=== PATIENT | female | born 1985 | race Caucasian/White ===

== ENCOUNTER 2019-09-25 11:07 | Outpatient (CLI) | payer OTHER, SELFPAY ==
--- NOTE | ~2019-09-25 | CT_ITS ---
EXAMINATION: CT facial bones wo con DATE: 09/25/2019 12:03 INDICATION: Fall. Nasal injury. Sinus disease. TECHNIQUE: Computed tomography (CT) of the facial bones and maxillofacial region was performed withou t intravenous contrast. Automated exposure control and iterative reconstruction technique were employ ed. Exam dose: 282.77 mGy-cm total exam DLP. COMPARISON: None. FINDINGS: The nasal bones and anterior maxillary spine are intact. Normal alignment at the frontozygo matic sutures. The orbital rims, orbital duffy, zygomatic arches and the remainder of the facial bone s are intact, without evidence of fracture. There is minimal focal mucoperiosteal thickening of the left maxillary sinus inferiorly. The paranasa l sinuses and mastoid air cells otherwise are normally developed and aerated. The nasal septum is midline. The nasal turbinates are moderately prominent but symmetric in size. The ostiomeatal units are patent. IMPRESSION: No facial fracture Reviewed, dictated and finalized at [facility]. Reviewed, dictated and finalized at location [facility]. 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
== END 2019-09-25 11:08 | disposition home or self-care (01) ==
PROVIDERS: PCP Internal Medicine; Visit Provider Internal Medicine
DX: S09.92XA Unspecified injury of nose, initial encounter (principal)
CPT/HCPCS: 70486

== ENCOUNTER 2025-05-18 08:56 | Day surgery (SDC) | payer OTHER, SELFPAY ==
[2025-05-12 08:38] VITALS: BMI 19.8
--- NOTE | ~2025-05-18 | XR_ITS ---
EXAMINATION: XR fluoroscopy no charge DATE: 05/18/2025 09:51 INDICATION: Left sacroiliac joint steroid injection TECHNIQUE: 5 fluoroscopic images of the left sacroiliac joint were obtained during procedure performed by Dr. Worthington. Radiologist was not present for the imaging or procedure. The amount of fluoroscopy time used during this procedure was 0.3 minutes. COMPARISON: None. FINDINGS/IMPRESSION: Images demonstrate spinal needle advanced into the left sacroiliac joint for reported steroid injection. See procedure note for further detail. Reviewed, dictated and finalized at location A.
--- NOTE | 2025-05-18 09:29 | PM.HPGS ---
History of Present Illness History of Present Illness Consent: Risks, benefits, and alternatives have been discussed and questions answered. Patient agrees to proceed with procedure. Chief complaint: Sacroiliitis, chronic low back pain Narrative: Kari Song is a 39 year old female with chronic, recalcitrant and disabling left lumbosacral back pain secondary to SI joint arthropathy, sacroiliitis with failure to respond to aggressive conservative measures including PT, oral and topical analgesics, opioid and nonopioid analgesics, rest, time and activity/behavioral modification over the past 1-2 years who presents for therapeutic intra-articular sacroiliac joint steroid injection under fluoroscopic guidance and with contrast control. Review of Systems Review of Systems: Patient denies any new infectious, allergic, cardiopulmonary, neurologic or constitutional symptoms or changes in activity tolerance or exercise capacity including new or progressive SOB/STONE, peripheral edema, productive cough, dysuria, nausea/vomiting, diarrhea, weight change, fevers/chills/night sweats, new or progressive neurologic deficit, cognitive or mood changes since last seen, except as documented in the HPI. All systems reviewed & are unremarkable except as noted in HPI and below PMFSH Past Medical History Medical History (Updated 05/18/25 @ 09:32 by Keith Worthington MD) Lumbar spondylosis Sacroiliitis Arthritis Anxiety Social History Social History Years smoked: 6 Smoking status: Current every day smoker Tobacco type: e-cigarettes/vaping Second hand tobacco smoke exposure: Yes Alcohol intake: current Drinks per week: 5 Substance use: never Substance use type: does not use Living arrangements: with family Spiritual care concerns: No Meds Home Medications and Allergies Home Medications ?Medication ?Instructions ?Recorded ?Confirmed ?Type clonazepam 0.5 mg tablet (Klonopin) 0.5 mg PO DAILY 01/20/25 05/12/25 History gabapentin 300 mg capsule 300 mg PO TID PRN pain 01/20/25 05/12/25 History ibuprofen 800 mg tablet 800 mg PO TID PRN pain 05/12/25 05/12/25 History Allergies Allergy/AdvReac Type Severity Reaction Status Date / Time No Known Allergies Allergy Verified 05/12/25 08:35 Exam Narrative: The patient's physical exam is essentially unchanged from prior examination on 04/14/2025. Specifically, patient demonstrates normal lung capacity, tidal volume and respiratory rate without wheezes, crackles, rales or rubs. Heart rate and rhythm are regular without murmurs, gallops or rubs. No JVD. Pulses 2+ globally without increasing peripheral edema. AAOx3 with no evidence of confusion, intoxication or altered mental state, NC/AT without acute distress or altered consciousness. Speech, cognition, mood, insight and judgment at baseline and within normal limits. Assessment and Plan Assessment and plan (1) Sacroiliitis: Code(s): M46.1 - Sacroiliitis, not elsewhere classified Status: Acute Assessment and Plan: Proceed as planned with therapeutic intra-articular sacroiliac joint steroid injection under fluoroscopic guidance and with contrast control. (2) Arthropathy of sacroiliac joint: Code(s): M47.818 - Spondylosis without myelopathy or radiculopathy, sacral and sacrococcygeal region Status: Acute (3) Chronic low back pain: Code(s): M54.50 - Low back pain, unspecified; G89.29 - Other chronic pain Status: Acute
--- NOTE | 2025-05-18 09:32 | P.OP_ITS ---
Procedure Note - Detailed Date of Procedure 05/18/25 Pre-op Diagnosis Sacroiliitis, chronic low back pain Post-op Diagnosis Same Procedure Performed Left Sacroiliac Joint Steroid Injection under Fluoroscopic Guidance and with Contrast Control. Surgeon Keith Worthington MD Heavy Duty Press Operator None Anesthesia Local Description of Procedure INFORMED CONSENT: Risks, benefits and alternatives to the procedure were discussed in detail with the patient who expressed explicit understanding and consent to proceed. Patient was informed verbally and in written form regarding the risks associated with the procedure including the low risk of serious infection, bleeding/bruising, allergic reaction, nerve or organ injury, paralysis, procedural site pain or discomfort, worsening pain and/or mobility, failure to treat and/or disfigurement. The patient expressed explicit understanding and consent to proceed. All materials required for the procedure were available prior to procedure start. Site and side were marked prior to procedure and confirmed in the presence of the patient. PROCEDURE IN DETAIL: The patient was brought to the procedural suite and placed in the prone position. Patient was made comfortable with use of pillows under the head/chest, hips and ankles. Skin overlying the injection site on the affected side(s) was prepared broadly with ChloraPrep applicator and draped in a sterile manner. Aseptic technique was used throughout. The left SI joint was identified in the AP view and contralateral oblique angulation with caudal tilt was utilized to optimize visualization of the inferior and medial joint line representing the posterior portion of the joint. Local anesthesia was established by infiltration with approximately 5 mL of 2% lidocaine via a 1-1/2 inch 27-gauge needle. A 22-gauge 3.5 inch Quincke spinal needle was advanced until the needle entered the inferior third of the joint space approximately 1cm cephalad from its most inferior point. In the AP view, 0.5 mL of Omnipaque 300 contrast medium was injected after negative aspiration for CSF, blood or other bodily fluid, showing appropriate intra-articular spread of contrast without evidence of intravascular, perineural or intrathecal placement. A 1.5 mL solution containing 10 mg of dexamethasone in 0.5% PF bupivacaine was injected after repeat negative aspiration. Appropriate spread of the injectate was confirmed with washout of previous injected contrast. No parasthesias were elicited. Needle was removed completely intact without difficulty. Images were saved and documented in the patient chart. Patient's skin was cleansed and sterile bandage applied. The patient tolerated the procedure well. The patient was transported to the recovery area in stable condition where they were observed for an appropriate amount of time prior to discharge, without evidence of complication. The patient was instructed to avoid excessive activity for the next 48 hours, including climbing and frequent use of stairs. Showers only for 48 hours. They were instructed not to drive or operate heavy machinery for 24 hours. They are to monitor for severe headaches, fevers, chills, night sweats, erythema/swelling at the site or any other signs of infection, bleeding/bruising, bowel or bladder changes as well as new pain, weakness or numbness in the upper or lower extremity. Should they notice these changes, they are instructed to call our office immediately or report directly to the nearest Emergency Department if no answer or if after posted office hours. COMPLICATIONS: None COMMENTS: None CONTRAST WASTED: 29.5 mL Omnipaque 300. Complications No immediate complications Condition Stable Disposition Same day [facility] Billing Surgery - Charge Forward: Surgery Billing
--- NOTE | 2025-05-18 09:32 | WPDHPUPDATE1 ---
History and Physical Update Update Date/Time: 05/18/25 09:32 History and Physical has been reviewed, including an updated exam of the patient. There are NO changes in the patient's condition. Risks, benefits, and alternatives have been discussed and questions answered. Patient agrees to proceed with procedure.
[2025-05-18 09:35] VITALS: BP 102/75; PULSE 61; RESP 16; TEMP 36.7; O2SAT 100
[2025-05-18 09:46] VITALS: BP 108/69; PULSE 64; RESP 18; O2SAT 100
--- OUTSIDE RECORDS SUMMARY | 2025-05-18 09:47 | XMS_ITS | Clinical Summary ---
Author Organization [facility] Address [address] [place] [address] Care Team Providers Care Gate Guard Name Role Phone Kirit Hankins MD Primary Care Provider Allergies No known active allergies Medications buPROPion SR (WELLBUTRIN SR) 100 mg 12 hr tablet 06/21/2020 Active clonazePAM (KlonoPIN) 0.5 mg tablet TK 1 T PO D PRN 06/21/2020 Active albuterol HFA (PROVENTIL HFA,VENTOLIN HFA,PROAIR HFA) 90 mcg/actuation inhalerIndicati ons:Bronchospas m Prevention Inhale 2 puffs every 4 (four) hours as needed for wheezing 1 each 11/01/2021 Active Active Problems No known active problems Surgical History Surgery Date Site/Laterality Comments US ABDOMEN COMPLETE W LIVER DOPPLER (C) 08/18/2018 R ight US ABDOMEN COMPLETE W LIVER DOPPLER (C) 08/27/2018 R ight Family History Medical History Relation Name Comments Breast cancer Paternal Grandmother Relation Name Status Comments Paternal Grandmother Social History Tobacco Use Types Packs/Day Years Used Date Smoking Tobacco: Every Day Vaping Personal Safety Answer Date Recorded Have you ever been in or are you currently in a harmful physical or emotional relationship or is someone making you feel afraid or unsafe? Denies 11/29/2024 Comments No Sex and Gender Information Value Date Recorded Sex Assigned at Not on file Legal Sex Female 1:47 AM CDT Gender Identity Not on file Sexual Orientation Not on file Obstetrics History Para Term AB IAB SAB Ectopic Multiple Livin g Live Births 3 2 2 Date Outcome GA Total Labor Labor/2nd/3rd Weight Sex Type Anes PTL Nadia A1 A5 Name Clin Term Term Last Filed Vital Signs Vital Sign Reading Time Taken Comments Blood Pressure 115/81 11/29/2024 1:44 PM CDT Pulse 86 11/29/2024 1:44 PM CDT Temperature 36.5 C (97.7 F) 11/29/2024 11:43 AM CDT Respiratory Rate 16 11/29/2024 1:44 PM CDT Oxygen Saturation 100% 11/29/2024 1:44 PM CDT Inhaled Oxygen Concentration - - Weight 49.4 kg (108 lb 14.5 oz) 025 11:43 AM CDT Height 160 cm (5' 3) 11/29/2024 11:43 AM CDT Body Mass Index 19.29 11/29/2024 11:43 AM CDT Plan of Treatment Health Maintenance Due Date Last Done Comments Cervical Cancer Screening 1987 Depression Screening 1987 Hepatitis C Screening 1987 Varicella Vaccines (1 of 2 - 13+ 2-dose series) 2000 DTaP/Tdap/Td Vaccine (6 - Tdap) 11/25/2002 11/24/2002, 03/30/1993, 01/21/1990, Additional history exists Regular Well Visit/Exam 18-64 2005 Pneumococcal vaccine <65 (1 of 2 - PCV) 2006 HPV Vaccines (1 - 3-dose SCD M series) 2014 Influenza Vaccine (#1) 2025 Hepatitis B Screening Completed 11/01/1997 , 07/25/1997, 06/21/[address] [facility] Care Teams Gate Guard Relationship Specialty Start Date End Date Kirit Hankins MD [address] [facility] [address] [place], [place] [id number] PCP - General 11/29/20
[2025-05-18] MEDS: dexAMETHasone SOD PHOS INJ 10 MG/ML 1 ML VIAL IM (09:49)
[2025-05-18] MEDS: BUPivacaine HCL 0.5% 10 ML AMP INFILTRATE (09:49)
[2025-05-18 09:58] VITALS: BP 103/84; PULSE 64; RESP 16; O2SAT 100
== END 2025-05-18 10:03 | disposition home or self-care (01) ==
PROVIDERS: PCP Internal Medicine; Visit Provider Anesthesiology Pain Medicine
PROC: (CPT 27096; principal; 2025-05-18 10:00)
DX: M46.1 Sacroiliitis, not elsewhere classified (principal); M54.50 Low back pain, unspecified; G89.29 Other chronic pain
CPT/HCPCS: 27096; 99199; G0260

== ENCOUNTER 2025-07-06 09:52 | Day surgery (SDC) | payer OTHER, SELFPAY ==
[2025-07-01 12:04] VITALS: BMI 20.2
--- NOTE | ~2025-07-06 | XR_ITS ---
EXAM/PROCEDURE: XR fluoroscopy no charge HISTORY: DIAG/PROG LEFT L3,L4,L5 MEDIAL BRANCH/DORSAL RAMI NERVE BLK COMPARISON: None available. Fluoroscopy time: 29.6 seconds DAP: 1.61 mGy IMPRESSION: Fluoroscopic guidance for pain management. No radiologist present for this procedure. See procedure/operative notes for complete evaluation. Reviewed, dictated and finalized at location A. LE CHANNELER IMPRESSION: Fluoroscopic guidance for pain management. No radiologist present for this proc edure. See procedure/operative notes for complete evaluation.
[2025-07-06 10:16] VITALS: BP 103/85; PULSE 73; RESP 16; TEMP 37.4; O2SAT 100; BMI 19.5
--- NOTE | 2025-07-06 11:44 | WPDHPUPDATE1 ---
History and Physical Update Update Date/Time: 07/06/25 11:44 History and Physical has been reviewed, including an updated exam of the patient. There are NO changes in the patient's condition. Risks, benefits, and alternatives have been discussed and questions answered. Patient agrees to proceed with procedure.
--- NOTE | 2025-07-06 11:45 | P.OP_ITS ---
Procedure Note - Detailed Date of Procedure 07/06/25 Pre-op Diagnosis Lumbar Spondylosis w/o Myelopathy or Radiculopathy Post-op Diagnosis Same Procedure Performed Diagnostic left Lumbar Medial Branch/Dorsal Ramus Blocks at L3, L4, L5 Treating the left L4-5, L5-S1 Facet Joints Under Fluoroscopic Guidance and with Contrast Control. (2 levels blocked). Surgeon Keith Worthington MD Biomedical Electronics Technician None. Anesthesia Local Description of Procedure INFORMED CONSENT: Risks, benefits and alternatives to the procedure were discussed in detail with the patient who expressed explicit understanding and consent to proceed. Patient was informed verbally and in written form regarding the risks associated with the procedure including the low risk of serious infection, bleeding/bruising, allergic reaction, nerve or organ injury, paralysis, procedural site pain or discomfort, worsening pain and/or mobility, failure to treat and/or disfigurement. The patient expressed explicit understanding and consent to proceed. All materials required for the procedure were available prior to procedure start. Site and side were marked prior to procedure and confirmed in the presence of the patient. PROCEDURE IN DETAIL: The patient was brought to the procedural suite and placed in the prone position. Patient was made comfortable with use of pillows under the head/chest, hips and ankles. Skin overlying the injection site on the affected side(s) was prepared broadly with ChloraPrep applicator and draped in a sterile manner. Aseptic technique was used throughout. The endplates of the vertebral bodies at the site(s) of interest were aligned in the AP view. Ipsilateral oblique angulation was utilized to optimize visualization of the intersection between the superior articulating process and transverse process at each target site. Local anesthesia was established by infiltration with approximately 5 mL of 1% lidocaine via a 1-1/2 inch 27-gauge needle. A 25-gauge 3.5 inch Quincke spinal needle was advanced until the needle tip contacted periosteum at the target site, left L3. Lateral view was utilized to confirm the appropriate placement of the needle tip just anterior to the facet line and superior to the pedicle. In the Lateral view, 0.25 mL of Omnipaque 300 contrast medium was injected after negative aspiration for CSF, blood or other bodily fluid, showing appropriate extra-articular spread of contrast without evidence of intravascular, foraminal or intrathecal placement. A 0.5 mL solution of 0.5% PF bupivacaine was injected after negative repeat aspiration. Appropriate spread of the injectate was confirmed with washout of previously injected contrast. No parasthesias were elicited. Needle was removed completely intact without difficulty. The same exact procedure was repeated for all remaining levels on the ipsilateral side, left L4, L5 medial branch/dorsal ramus, modified as necessary to accommodate for the new target location with identical findings and results and no evidence of complication. Images were saved and documented in the patient chart. Patient's skin was cleaned and sterile bandage applied. The patient tolerated the procedure well. The patient was transported to the recovery area in stable condition where they were observed for an appropriate amount of time prior to discharge, without evidence of complication. Patient was instructed on the appropriate completion of a pain diary over the next 12-24 hours. The patient was instructed to avoid excessive activity for the next 48 hours, including climbing and frequent use of stairs. Showers only for 48 hours. They were instructed not to drive or operate heavy machinery for 24 hours. They are to monitor for severe headaches, fevers, chills, night sweats, erythema/swelling at the site or any other signs of infection, bleeding/bruising, bowel or bladder changes as well as new pain, weakness or numbness in the upper or lower extremity. Should they notice these changes, they are instructed to call our office immediately or report directly to the nearest Emergency Department if no answer or if after posted office hours. COMPLICATIONS: None COMMENTS: None CONTRAST WASTED: 28.5mL Omnipaque 300. Complications No immediate complications Condition Stable Disposition Same day [facility] Billing Surgery - Charge Forward: Surgery Billing
[2025-07-06 12:17] VITALS: BP 136/77; PULSE 60; RESP 15; O2SAT 100
[2025-07-06 12:20] VITALS: BP 111/69; PULSE 60; RESP 15; O2SAT 100
[2025-07-06] MEDS: BUPivacaine HCL 0.5% 10 ML AMP INFILTRATE (12:20)
[2025-07-06 12:26] VITALS: BP 108/94; PULSE 64; RESP 16; O2SAT 100
--- OUTSIDE RECORDS SUMMARY | 2025-07-06 17:38 | XMS_ITS | Data Portability ---
Author Organization [place] [facility], [facility] Address [address] [facility] [address] [place] [address] Assessment No assessment recorded. Plan of Treatment Reminders Order Date Submit Date Provider Last Modified By Organization Details Last Modified Time Details Appointments Follow Up 15 2024 02:45P M Kirit Hankins MD Not available Not available Not available Lab gamma-glu tamyl transfera se (ggt), serum 2024 025 [facility], [address], [place], [address], 06/30/2025 04:05:06 CBC w/ auto diff 2024 025 [facility], [address], [address], [place], [address], 06/30/2025 04:05:05 vitamin D, 25-hydrox y, total, serum 2024 025 [facility], [address], [address], [place], [address], 06/30/2025 04:05:06 iron + TIBC + ferritin, serum 2024 025 [facility], [address], [address], [place], [address], 06/30/2025 04:05:06 vitamin B12 + folate, serum or blood 2024 025 [facility], [address], [address], [place], [address], 06/30/2025 04:05:06 CMP, serum or plasma 2024 025 [facility], [address], [address], [place], [address], 06/30/2025 04:05:06 TSH, serum or plasma 2024 025 [facility], [address], [address], [place], [address], 06/30/2025 04:05:06 urinalysi s complete, reflex culture 2024 025 [facility], [address], [address], [place], [address], 06/30/2025 04:05:07 erythrocy te sedimenta tion rate by westergre n method 2024 [facility], [address], [address], [place], [address], 06/30/2025 04:05:06 C-reactiv e protein, quantitat luisa, serum or plasma 2024 025 [facility], [address], [address], [place], [address], 06/30/2025 04:05:07 Referral None recorded. Procedures None recorded. Surgeries None recorded. Imaging None recorded. Medication Orders naltrexon e 50 mg tablet 2024 [facility] #61034, [address], [place], [place], [id number], 06/23/2025 11:35:55 trazodone 50 mg tablet 2024 [facility] #51352, [address], [place], [place], [id number], 06/23/2025 11:35:54 cyclobenz aprine 10 mg tablet 2024 [facility] #42111, [address], [place], [place], [id number], 06/23/2025 11:35:54 diclofena c sodium 75 mg tablet,de layed release 2024 On license of [facility] #44716, [address], [place], [place], [id number], 06/23/2025 11:35:53 Adderall XR 30 mg capsule,e xtended release 2024 [facility] #98585, [address], [place], [place], [id number], 06/23/2025 11:35:51 clonazepa m 0.5 mg tablet 2024 [facility] #84414, [address], [place], [place], [id number], 06/23/2025 11:35:52 naltrexon e 50 mg tablet 2024 [facility] #56226, [address], [place], [place], [id number], 05/20/2025 16:54:52 trazodone 50 mg tablet 2024 [facility] #50911, [address], [place], [place], [id number], 05/20/2025 16:52:28 Adderall XR 30 mg capsule,e xtended release 2024 [facility] #06269, [address], [place], [place], [id number], 05/20/2025 16:52:23 clonazepa m 0.5 mg tablet 2024 On license of [facility] #52109, [address], [place], [place], [id number], 05/20/2025 16:52:21 Refresh Tears 0.5 % eye drops 2024 [facility] #53253, [address], [place], [place], [id number], 04/22/2025 15:05:42 ondansetr on 4 mg disintegr ating tablet 2024 On license of [facility] #50205, [address], [place], [place], [id number], 04/22/2025 15:05:43 Adderall XR 30 mg capsule,e xtended release 2024 [facility] #88347, [address], [place], [place], [id number], 04/22/2025 15:05:37 clonazepa m 0.5 mg tablet 2024 [facility] #66163, [address], [place], [place], [id number], 04/22/2025 15:05:37 diclofena c sodium 75 mg tablet,de layed release 2024 On license of [facility] #18458, [address], [place], [place], [id number], 03/24/2025 16:43:08 Adderall XR 30 mg capsule,e xtended release 2024 025 [facility] #89286, [address], [place], [place], [id number], 03/24/2025 16:43:10 clonazepa m 0.5 mg tablet 2024 025 [facility] #28127, [address], [id number], 03/24/2025 16:43:10 gabapenti n 300 mg capsule 2024 025 [facility] #28036, [address], [place], [id number], 06/23/2025 11:29:42 Adderall XR 20 mg capsule,e xtended release 2024 025 [place] [address] [facility] #39151, [address], [place], [id number], 06/23/2025 11:28:36 Patient TargetsNo targets recorded. Patient Instructions Encounter Date Encounter Id Patient Instructions Last Modified By Organization Details Last Modified Time 02/03/2025 [id number] Quitting Tobacco : Care Instructions Not available 02/03/2025 16:07:58 chronic pelvic pain: care instructions [email or web address] Not available 02/03/2025 16:07:58 attention defici t hyperactivity disorder (ADHD) in adults: care instructions [email or web address] Not available 02/03/2025 16:07:58 learning about mood disorders [email or web address] Not available 02/03/2025 16:07:58 learning about mood disorders [email or web address] Not available 02/03/2025 16:07:58 I spent a total of _33 minutes (excluding separately reportable procedure time ) in care of this patient. [email or web address] Not available 02/03/2025 18:21:45 03/24/2025 [id number] Quitting Tobacco : Care Instructions [email or web address] Not available 03/24/2025 16:43:02 chronic pelvic pain: care instructions [email or web address] Not available 03/24/2025 16:43:02 attention defici t hyperactivity disorder (ADHD) in adults: care instructions [email or web address] Not available 03/24/2025 16:43:02 learning about mood disorders [email or web address] Not available 03/24/2025 16:43:02 learning about mood disorders [email or web address] Not available 03/24/2025 16:43:02 I spent a total of __31____ minutes (excluding separately reportable procedure time ) in care of this patient. [email or web address] Not available 03/24/2025 18:45:01 04/22/2025 [id number] Quitting Tobacco : Care Instructions [email or web address] Not available 04/22/2025 15:05:29 dry eyes: care instructions [email or web address] Not available 04/22/2025 15:05:29 chronic pelvic pain: care instructions Not available 04/22/2025 15:05:29 attention defici t hyperactivity disorder (ADHD) in adults: care instructions [email or web address] Not available 04/22/2025 15:05:29 learning about mood disorders [email or web address] Not available 04/22/2025 15:05:29 learning about mood disorders [id number] Not available 04/22/2025 15:05:29 I spent a total of __31____ minutes (excluding separately reportable procedure time ) in care of this patient. [email or web address] Not available 04/22/2025 15:03:05 05/20/2025 [id number] Quitting Tobacco : Care Instructions [email or web address] Not available 05/20/2025 16:52:14 dry eyes: care instructions [email or web address] Not available 05/20/2025 16:52:14 chronic pelvic pain: care instructions [email or web address] Not available 05/20/2025 16:52:14 attention defici t hyperactivity disorder (ADHD) in adults: care instructions [email or web address] Not available 05/20/2025 16:52:14 learning about mood disorders [email or web address] Not available 05/20/2025 16:52:14 learning about mood disorders [email or web address] Not available 05/20/2025 16:52:14 I spent a total of __32____ minutes (excluding separately reportable procedure time ) in care of this patient. [email or web address] Not available 05/20/2025 16:55:37 06/23/2025 [id number] Quitting Tobacco : Care Instructions [email or web address] Not available 06/23/2025 11:35:37 dry eyes: care instructions [email or web address] Not available 06/23/2025 11:35:36 chronic pelvic pain: care instructions [email or web address] Not available 06/23/2025 11:35:37 attention defici t hyperactivity disorder (ADHD) in adults: care instructions Not available 06/23/2025 11:35:37 learning about mood disorders [email or web address] Not available 06/23/2025 11:35:37 learning about mood disorders [email or web address] Not available 06/23/2025 11:35:36 I spent a total of __31____ minutes (excluding separately reportable procedure time ) in care of this patient. [email or web address] Not available 06/23/2025 11:35:47 Reason for Referral None Reported. Results Created Date Observation Date Name Description Value Unit Range Abnormal Flag Note LastModifiedBy Organization Detail LastModifiedTime 01/13/2001/08/2025 MRI, lumba r spine , w/o contr ast No observ ation record ed. [address] [place], [address], 01/14/2025 14:59:59 Result Notes None recorded. Problems Name Problem SNOMED Code Status Onset Date Resolution Date Notes Provider Name and Address Organization Details Recorded Time Altered bowel function 84315313 Completed 06/12/2023 Altered bowel habits Kirit Hankins MD [address] [facility] [address], [place], [address], [facility] 3 12:35:47 Acute bronchit is 50696990 Completed 06/12/2023 Acute bronchit is Kirit Hankins MD [address] [facility] [address], [place], [address], [facility] 10/25/202 3 12:32:32 Late effect of fracture of skull AND/OR face bones 44202928 Completed 06/12/2023 Late effect of fracture of skull AND/OR face bones Kirit Hankins MD [address] [facility] [address], [place], [address], [facility] 3 12:35:09 Depressi ve disorder 13376351 Completed 06/12/2023 Depresse d Depres sive disorder Davidamichael Montillakwadwo [facility] 4 10:32:00 Toxicode ndron radicans poisonin g 05537199 Completed 06/12/2023 Poison emily poisonin g Kirit Hankins MD [address] [facility] [address], [place], [address], [facility] 3 12:35:26 Acute mastitis 07711693 Completed 06/12/2023 Acute mastitis Kirit Hankins MD [address] [facility] [address], [place], [address], [facility] 3 12:32:34 Fatigue 36481342 Active Fatigue Kirit Hankins MD [address] [facility] [address], [place], [address], [facility] 5 16:51:45 Acute rhinosin usitis 591356810 Completed 06/12/2023 Acute rhinosin usitis Kirit Hankins MD [address] [facility] [address], [place], [address], [facility] 3 12:32:36 Pleuriti c pain 3846991 Completed 06/12/2023 Pleuriti c pain Kirit Hankins MD [address] [facility] [address], [place], [address], [facility] 3 12:35:32 Anxiety 90203080 Active 2014 Anxiety Kirit Hankins MD [address] [facility] [address], [place], [address], [facility] 5 16:50:20 Urinary tract infectio us disease 51200729 Completed 201406/12/2023 Urinary tract infectio us disease Kirit Hankins MD [address] [facility] [address], [place], [address], [facility] 4 12:56:26 Tobacco user 779966635 Active 2014 Tobacco use Kirit Hankins MD [address] [facility] [address], [place], [address], [facility] 5 16:50:20 Alcoholi sm 8894760 Active 2014 Alcoholi sm Kirit Hankins MD [address] [facility] [address], [place], [address], [facility] 5 16:55:01 Panic attack 104844771 Completed 201506/12/2023 Panic attack Kirit Hankins MD [address] [facility] [address], [place], [address], [facility] 3 12:35:39 Gastriti s 7032912 Completed 201706/12/2023 Gastriti s Kirit Hankins MD [address] [facility] [address], [place], [address], [facility] 3 12:35:41 Fibromyo sitis 51281401 Active 2022 Kirit Hankins MD [address] [facility] [address], [place], [address], [facility] 5 16:50:20 Osteoart hritis of right hip joint 57814702920 9107 Active 2022 Kirit Hankins MD [address] [facility] [address], [place], [address], [facility] 5 16:50:20 Arthriti s of right sacroili ac joint 58523036523 50539 Active 2022 Kirit Hankins MD [address] [facility] [address], [place], [address], [facility] 5 16:50:20 Disorder of iron metaboli 54409704 Active 2022 Kirit Hankins MD [address] [facility] [address], [place], [address], [facility] 5 16:50:20 Chronic pelvic pain of female 552759285 Active 2023 Kirit Hankins MD [address] [facility] [address], [place], [address], [facility] 5 16:50:21 Acute upper respirat ory infectio n 57751228 Completed 202306/16/2024 Kirit Hankins MD [address] [facility] [address], [place], [address], [facility] 4 12:56:13 Recurren t urinary tract infectio n 232325879 Completed 202306/16/2024 Kirit Hankins MD [address] [facility] [address], [place], [address], [facility] 4 12:56:20 Urinary tract infectio us disease 97392083 Completed 202306/16/2024 Urinary tract infectio us disease Kirit Hankins MD [address] [facility] [address], [place], [address], [facility] 4 12:56:25 Depressi ve disorder 63954619 Active 2023 Depresse d Depres sive disorder Davida Reyes [facility] 4 10:32:00 Mood disorder 80353591 Active 2023 Kirit Hankins MD [address] [facility] [facility] [address], [place], [address], [facility] 5 16:50:20 Chronic low back pain 180022835 Active 2023 Kirit Hankins MD [address] [facility] [address], [place], [address], [facility] 5 16:50:20 Secondar y amenorrh ea 520543516 Active 2023 Kirit Hankins MD [address] [facility] [address], [place], [address], [facility] 5 16:50:21 Degenera tion of lumbar interver tebral disc 45216700 Active 2023 Kirit Hankins MD [address] [facility] [address], [place], [address], [facility] 5 16:50:20 Attentio n deficit hyperact ivity disorder 385025189 Active 2024 Kirit Hankins MD [address] [facility] [address], [place], [address], [facility] 5 16:50:20 Projecti le vomiting 5247323 Active 2024 Kirit Hankins MD [address] [facility] [address], [place], [address], [facility] 5 14:54:59 Dry eyes 484301263 Active 2024 MD Sophie [address] [facility] [address], [place], [address], [facility] 5 15:03:44 Chronic insomnia 702761716 Active 2024 Kirit Hankins MD [address] [facility] [address], [place], [address], [facility] 5 16:50:58 Problem Notes None recorded. Medical Equipment None Reported. Allergies No known drug allergies Medications Name Sig Start Date Stop Date Status Note LastModified by Organization Details LastModified Time Refresh Tears 0.5 % eye drops Apply 2 drops every day by ophthalmi c route as needed. 2024 active Not Available Not Available Not Avai lable cyclobenzap rine 10 mg tablet TAKE 1/2 TABLET BY MOUTH AT BEDTIME 2024 active Not Available Not Available Not Avai lable amoxicillin 500 mg capsule TAKE 1 CAPSULE BY MOUTH EVERY 8 HOURS active Not Available Not Available No t Available medroxyprog esterone 10 mg tablet active Not Available Not Available No t Available trazodone 50 mg tablet Take 1 tablet every day by oral route. 2024 active Not Available Not Available Not Avai lable naltrexone 50 mg tablet Take 1 tablet every day by oral route. 2024 active Not Available Not Available Not Avai lable clonazepam 0.5 mg tablet TAKE 1 TABLET BY MOUTH EVERY DAY NEEDED 2024 active Not Available Not Available Not Avai lable pimecrolimu s 1 % topical cream APPLY TO THE AFFECTED AREA ON THE FACE TWICE DAILY 03/24 completed Not Available Not Available Not Available hydroxyzine pamoate 50 mg capsule 03/24 completed Not Available Not Available Not Available prochlorper azine maleate 10 mg tablet take one tablet by mouth three times a day as needed for nausea 2024 active Not Available Not Available Not Avai lable sulfamethox azole 800 mg-trimetho prim 160 mg tablet TAKE 1 TABLET BY MOUTH EVERY 12 HOURS FOR 5 DAYS 06/16 completed Not Available Not Available Not Available omeprazole 40 mg capsule,del ayed release TAKE 1 CAPSULE BY MOUTH EVERY DAY 30 MINUTES BEFORE BREAKFAST 03/24 completed Not Available Not Available Not Available Adderall XR 30 mg capsule,ext ended release Take 1 capsule every day by oral route. 2024 active Not Available Not Available Not Avai lable modafinil 200 mg tablet 11/04 completed Not Available Not Available Not Available chlordiazep oxide 25 mg capsule 11/04 completed Not Available Not Available Not Available dextroamphe tamine-amph etamine ER 20 mg 24hr capsule,ext end release TAKE 1 CAPSULE BY MOUTH EVERY DAY 06/23 completed Not Available Not Available Not Available bisacodyl 10 mg rectal suppository active Not Available Not Available Not Available cephalexin 500 mg capsule 11/04 completed Not Available Not Available Not Available Concerta 36 mg tablet,exte nded release TAKE 1 TABLET BY MOUTH EVERY DAY 12/03 completed Not Available Not Available Not Available gabapentin 300 mg capsule TAKE 1 CAPSULE BY MOUTH THREE TIMES DAILY 06/23 completed Not Available Not Available Not Available omeprazole 20 mg capsule,del ayed release 03/24 completed Not Available Not Available Not Available diclofenac sodium 75 mg tablet,chacorta yed release Take 1 tablet twice a day by oral route with meal(s). 2024 active Not Available Not Available Not Avai lable folic acid 1 mg tablet 1 tablet Orally Once a day for 30 day(s) 06/12 completed Not Available Not Available Not Available methylpredn isolone 4 mg tablets in a dose pack FOLLOW PACKAGE DIRECTION S 06/12 completed Not Available Not Available Not Available albuterol sulfate HFA 90 mcg/actuati on aerosol inhaler INHALE 1 TO 2 PUFFS BY MOUTH EVERY 4 TO 6 HOURS NEEDED FOR WHEEZING 06/12 completed Not Available Not Available Not Available Prozac 10 mg capsule 1 capsule Orally Once a day for 30 day(s) active Not Available Not Available No t Available ketoconazol e 2 % topical cream active Not Available Not Available Not Available ondansetron 4 mg disintegrat ing tablet Place 1 tablet 3 times a day by transling ual route as needed. 2024 active Not Available Not Available Not Avai lable amoxicillin 875 mg-potassiu m clavulanate 125 mg tablet TAKE 1 TABLET BY MOUTH EVERY 12 HOURS FOR 7 DAYS 02/12 completed Not Available Not Available Not Available hydroxyzine pamoate 25 mg capsule 06/12 completed Not Available Not Available Not Available cyclobenzap rine 5 mg tablet TAKE 1 TABLET BY MOUTH THREE TIMES DAILY NEEDED 06/23 completed Not Available Not Available Not Available artificial tears(dextr an-hypromel -glycern) 0.1 %-0.3 %-0.2 % eye drops active Not Available Not Available Not Available bupropion HCl XL 150 mg 24 hr tablet, extended release TAKE 1 TABLET BY MOUTH EVERY DAY IN THE MORNING 04/22 completed Not Available Not Available Not Available acamprosate 333 mg tablet,chacorta yed release TAKE 2 TABLETS BY MOUTH THREE TIMES DAILY 04/22 completed Not Available Not Available Not Available duloxetine 20 mg capsule,del ayed release Take 1 capsule every day by oral route. 11/04 completed Not Available Not Available Not Available Vivitrol 380 mg intramuscul ar suspension, extended release 11/04 completed Not Available Not Available Not Available Linzess 290 mcg capsule TAKE 1 CAPSULE BY MOUTH DAILY active Not Available Not Available No t Available Vraylar 1.5 mg capsule active Not Available Not Available N ot Available Vitals Date Recorded Body height Body temperature Body mass index (BMI) Body weight Heart rate Respiratory rate Oxygen saturation Oxygen saturation in Arterial blood by Pulse oximetry Systolic And Diastolic Provider Name and Address Organization Details Last Updated DateTime 5 160.02 cm 98.2 [degF] 19.1 kg/m2 63075.9 8 g 94 /min 16 /min 100 % 100 % 116/70 mm[Hg] [facility] 5 15:31:13 Date Recorded Body height Body temperature Body mass index (BMI) Body weight Heart rate Respiratory rate Oxygen saturation Oxygen saturation in Arterial blood by Pulse oximetry Systolic And Diastolic Provider Name and Address Organization Details Last Updated DateTime 5 160.02 cm 97.4 [degF] 19.8 kg/m2 92852.3 5 g 94 /min 16 /min 96 % 96 % 104/60 mm[Hg] [facility] 5 16:03:41 Date Recorded Body height Body temperature Body mass index (BMI) Body weight Heart rate Respiratory rate Oxygen saturation Oxygen saturation in Arterial blood by Pulse oximetry Systolic And Diastolic Provider Name and Address Organization Details Last Updated DateTime 5 160.02 cm 97.3 [degF] 20.4 kg/m2 47849.1 2 g 68 /min 18 /min 99 % 99 % 104/60 mm[Hg] [facility] 5 14:43:29 Date Recorded Body height Body temperature Body mass index (BMI) Body weight Heart rate Respiratory rate Oxygen saturation Oxygen saturation in Arterial blood by Pulse oximetry Systolic And Diastolic Provider Name and Address Organization Details Last Updated DateTime 5 160.02 cm 98.2 [degF] 20 kg/m2 92245.9 4 g 67 /min 18 /min 97 % 97 % 104/70 mm[Hg] [facility] 5 16:38:15 Date Recorded Body height Body temperature Body mass index (BMI) Body weight Heart rate Respiratory rate Oxygen saturation Oxygen saturation in Arterial blood by Pulse oximetry Systolic And Diastolic Provider Name and Address Organization Details Last Updated DateTime 5 160.02 cm 96.8 [degF] 20 kg/m2 98418.9 4 g 74 /min 18 /min 99 % 99 % 104/60 mm[Hg] [facility] 5 11:08:25 Social History None recorded. Functional Status None recorded. Mental Status None recorded. Family History Nothing Reported Notes:Migrated Family Histor y: Notes: : CANCER NOTE: Notes: Cancer Medical History No medical history recorded. Gynecological HistoryNo gynecological history recorded. Obstetrics History GPAL:G 0 P 0 0 0 0 Immunizations Vaccine Type Date Status Note Provider Nam e and Address Organization Details Recorded Time [facility]57 MMR 3 [facility] 11:43:57 COVID-19, mRNA, LNP-S, PF, 30 mcg/0.3 mL dose, gali-sucrose 2 [facility] 11:43:57 DTP 0 completed [place] null, [facility] 06/12/2023 11:43:57 DTP 8 [facility] 11:43:57 DTP 8 [facility] 11:43:57 DTP 3 [facility] 11:43:57 DTP 8 [facility] 11:43:57 OPV, trivalent 0 completed Key Dall null, [facility] 06/12/2023 11:43:57 OPV, trivalent 8 completed Key Dall null, [facility] 06/12/2023 11:43:57 OPV, trivalent 8 completed Key D[place] null, [facility] 06/12/2023 11:43:57 OPV, trivalent 3 completed Key Dall null, [facility] 06/12/2023 11:43:57 Td (adult), 2 Lf tetanus toxoid, preservative free, adsorbed 3 completed Key Dall null, [facility] 06/12/2023 11:43:57 Hep B, adolescent or pediatric 8 completed Key Dall null, [facility] 06/12/2023 11:43:57 Hep B, adolescent or pediatric 7 completed Key [place] null, [facility] 06/12/2023 11:43:57 Hep B, adolescent or pediatric 7 completed Key Dall null, [facility] 06/12/2023 11:43:57 Past Encounters Encounter ID Performer Location Encounter Start Date Encounter Closed Date Diagnosis/Indication Diagnosis SNOMED-CT Code Diagnosis ICD10 Code Diagnosis IMO Codes Diagnosis Note [id number] Kirit Hankins MD [facility] [facility] [address] [facility] [address] [place] [address] 06/12/2023 11:23:29 06/12/2023 12:53:37 Anxiety 63390729 F41.9 on clonazepam for since 20started having panic attacks black outsschool ing: did wellboyfri end suddenly, lot of stress due to familial stresstrie d different antidepres sants, zoloft, bupropion, lamictal in the past which did not helpdec 2021 admitted to psych facility for alcohol intoxicati on and potential suicidal intentions bupropion: sexual side effects Fatigue 37602427 R53.83 ongoingana negative 02/2022; kylah and anticcp: negative Tobacco user 003946791 F 17.200 ongoing smoking Alcoholism 4986757 F10.2 0 drinks frequently ,mostly binge drinkingco unsled on drinkingdi scused different medciation s.start naltrexone 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 will recckdid not go to rheumatoil ogist Osteoarthr itis of right hip joint 0341158215 41746 M16.11 xr 03/10 will follow Arthritis of right sacroiliac joint 1869696429 057696 M13.88 cr 03/10 notedrheum atology referral [id number] Kirit Hankins MD [facility] [address] [place] [address] 06/19/2023 12:17:20 06/19/2023 12:45:37 Anxiety 81025570 F41.9 on clonazepam for since 20started having panic attacks black outsschool ing: did wellboyfri end suddenly, lot of stress due to familial stresstrie d different antidepres sants, zoloft, bupropion, lamictal in the past which did not helpdec 2021 admitted to psych facility for alcohol intoxicati on and potential suicidal intentions bupropion: sexual side effects Fatigue 38767272 R53.83 ongoingana negative 02/2022; kylah and anticcp: negativees r crp again normal Tobacco user 678501469 F 17.200 ongoing smoking Alcoholism 0132945 F10.2 0 drinks frequently ,mostly binge drinkingco unsled on drinkingdi scused different medciation s.start naltrexone Fibromyositis 05734946 M 79.7 ongoing muscle pain.eleva libertad aldolase in the past. 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 TIBC low, iron level and saturation is high.03/09: these levels were normal.eric ritin level is normalwill recheck in future.she does not use iron regularlyw ill check hepatitis panel recheck iron levels in future.low er alcohol intake [id number] Kirit Hankins MD [facility] [address] [place] [address] 11/15/2023 10:01:03 11/15/2023 10:41:48 Disorder of iron metabolism 65109824 E83.10 TIBC low, iron level and saturation is high.03/09: these levels were normal.eric ritin level is normalwill recheck in future.she does not use iron regularlyw ill check hepatitis panel recheck iron levels in future.low er alcohol intake Alcoholism 3098249 F10.2 0 drinks frequently , mostly binge drinkingco unseled on drinkingdi scussed different medication s.start naltrexone Anxiety 07262196 F41.9 on clonazepam for since 20started having panic attacks blackoutss chooling: did wellboyfri end suddenly, lot of stress due to familial stresstrie d different antidepres sants, zoloft, bupropion, lamictal in the past which did not helpdec 2021 admitted to psych facility for alcohol intoxicati on and potential suicidal intentions bupropion: sexual side effects Fatigue 16377915 R53.83 ongoingana negative 02/2022; kylah and anticcp: negativees r crp again normal Tobacco user 618993983 F 17.200 ongoing smoking Fibromyositis 41072510 M 79.7 ongoing muscle pain.eleva libertad aldolase in the past. recehck normal, ck normaldid not go to rheumatolo gist Osteoarthr itis of right hip joint 4393725215 89374 M16.11 xr 03/10 will follow Arthritis of right sacroiliac joint 7535530450 540083 M13.88 cr 03/10 notedrheum atology referral Chronic pe lvic pain of female 777094713 R10.2 ongoing mild for long time.fu with gynecology not until get pelvic us.check ua as wellaugmen tin for uti as well Acute uppe r respiratory infection 39944211 J06.9 will give augmentin [id number] Kirit Hankins MD [facility] [address] [facility] [address] [place] [address] 02/13/2024 10:19:11 02/13/2024 11:00:10 Disorder of iron metabolism 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.10 TIBC low, iron level and saturation is high.03/09: these levels were normal.eric ritin level is normalwill recheck in future.she does not use iron regularlyh epatitis panel negative.l ower alcohol intake which she is having difficulty withwill check for hfe mutationre check labs Alcoholism 1512285 F10.2 0 drinks frequently mostly binge drinkingco unseled on drinkingdi scussed different medication s.start naltrexone which she does not takeadvise dto contact alcohol rehb center for vivitrol Anxiety 31138324 F41.9 on clonazepam for since 20started having panic attacks blackoutss chooling: did wellboyfri end suddenly, lot of stress due to familial stresstrie d different antidepres sants, zoloft, bupropion, lamictal in the past which did not helpdec 2021 admitted to psych facility for alcohol intoxicati on and potential suicidal intentions bupropion: sexual side effects Fatigue 53035730 R53.83 ongoingana negative 02/2022; kylah and anticcp: negativees r crp again normal Tobacco user 646506508 F 17.200 ongoing smoking Fibromyositis 36245969 M 79.7 ongoing muscle pain.eleva libertad aldolase in the past. recehck normal, ck normaldid not go to rheumatolo gist Osteoarthr itis of right hip joint 8719401350 28674 M16.11 xr 03/10 will follow Arthritis of right sacroiliac joint 3952117299 001734 M13.88 cr 03/10 notedrheum atology referral Chronic pe lvic pain of female 848015599 R10.2 D25.1 ongoing mild for long time.fu with gynecology not until lv c ultrasound with fibroid uterus Followed up with gynecologi st Mood disorder 07144822 F 39 mood up and down. will refer to psychaitri michelle add vraylar for depression [id number] Kirit Hankins MD [facility] [address] [facility] [address] [place] [address] 06/16/2024 11:52:03 06/16/2024 13:09:59 Renewal of prescription 338073244 Z76.0 Patient presented for medication refill. Patient tolerating medication well at current dose without adverse effects. Refilled as below. Discussed plan with patient, who expressed understand ing. Follow up as noted below. Mood disorder 87914346 F 39 mood up and down. will refer to psychaitri michelle add vraylar for depression which had some side effects and she stopped. Disorder o f iron metabolism 18717931 E83.10 TIBC low, iron level and saturation is high.03/09: these levels were normal.eric ritin level is normalwill recheck in future.she does not use iron regularlyh epatitis panel negative.l ower alcohol intake which she is having difficulty withwill check for hfe mutationre check labs which is pending Alcoholism 4179281 F10.2 0 drinks frequently mostly binge drinkingco unseled on drinkingdi scussed different medication s.start naltrexone which she does not takeadvise dto contact alcohol rehb center for vivitrols e states she has slowed down Anxiety 65982299 F41.9 on clonazepam for since 20started having panic attacks blackoutss chooling: did wellboyfri end suddenly, lot of stress due to familial stresstrie d different antidepres sants, zoloft, bupropion, lamictal in the past which did not helpdec 2021 admitted to psych facility for alcohol intoxicati on and potential suicidal intentions bupropion: sexual side effects and stopedvray lar: side effects Fatigue 76314971 R53.83 ongoingana negative 02/2022; kylah and anticcp: negativees r crp again normal Tobacco user 314289866 F 17.200 ongoing smoking Fibromyositis 66234530 M 79.7 ongoing muscle pain.eleva libertad aldolase in the past. recheck normal, ck normaldid not go to rheumatolo gistwill add flexeril prn Osteoarthr itis of right hip joint 6527171543 22348 M16.11 xr 03/10 will follow Arthritis of right sacroiliac joint 1073836434 134132 M13.88 cr 03/10 notedrheum atology referralha d elevated aldolase level.ongo ing fatigueCK level normal Chronic pe lvic pain of female 950264548 R10.2 D25.1 ongoing mild for long time.fu with gynecology not until lvi c ultrasound with fibroid uterus Followed up with gynecologi Chronic low back pain 27 1430665 M54.50 xray done at chiropract orreceived the injection at the chiropract oron ibuprofen prn Secondary amenorrhea 156 560592 N91.1 urine pocfollow up with female doctcheck hormone levels [id number] Kirit Hankins MD [facility] [address] [address] [place] [address] 07/09/2024 10:22:57 07/09/2024 11:23:19 Chronic low back pain 240781620 M54.50 xray done at chiropract orreceived the injection at the chiropract oron ibuprofen prnxr lumbar ddd and facet arthritisr efer to pain management Fibromyositis 99188255 M 79.7 ongoing muscle pain.eleva libertad aldolase in the past. recheck normal, ck normaldid not go to rheumatolo gistwialivia add flexeril prndiscuss ed cymbalta with the patient, agreeable. Mood disorder 84920403 F 39 mood up and down. will refer to psychiatri michelle jc vraylar for depression which had some side effects and she stoppedwil l add cymbalta for this.possi ble focus problem and will refer to behavioral health.salome holder refer to behavioral health Disorder o f iron metabolism 93430832 E83.10 TIBC low, iron level and saturation is high03/09: these levels were normal.eric ritin level is normalwill recheck in future.she does not use iron regularlyh epatitis panel negative.l ower alcohol intake which she is having difficulty withwill check for hfe mutation which is pendingiro n saturation 53% improved down from 69%she has cut down on her drinking. with noted improvemen t.HFE mutation pending. Alcoholism 8575715 F10.2 0 drinks frequently mostly binge drinkingco unseled on drinkingdi scussed different medication s.start naltrexone which she does not takeadvise d to contact alcohol rehab center for vivitrolsh e states she has slowed down Anxiety 30601020 F41.9 on clonazepam for since 20started having panic attacks blackoutss chooling: did wellboyfri end suddenly, lot of stress due to familial stresstrie d different antidepres sants, zoloft, bupropion, lamictal in the past which did not helpdec 2021 admitted to psych facility for alcohol intoxicati on and potential suicidal intentions bupropion: sexual side effects and stopedvray lar: side effects Fatigue 16749624 R53.83 ongoingana negative 02/2022; kylah and anticcp: negativees r crp again normal Tobacco user 021916362 F 17.200 ongoing smoking Osteoarthr itis of right hip joint 7790686333 44461 M16.11 xr 03/10 will follow Arthritis of right sacroiliac joint 6615614844 764704 M13.88 cr 03/10 notedrheum atology referralha d elevated aldolase level.ongo ing fatigueCK level normalsche duled not until january 2025 Chronic pe lvic pain of female 722540326 R10.2 D25.1 ongoing mild for long time.fu with gynecology Pelvic ultrasound with fibroid uterusFoll owed up with gynecologi st Secondary amenorrhea 156 541336 N91.1 urine pocfollow up with female doctnow having menstruato in. 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 [address] [place] [address] 11/04/2024 10:44:23 11/04/2024 11:22:34 Chronic low back pain 118792461 M54.50 xray done at chiropract orreceived the injection at the chiropract oron ibuprofen prnxr lumbar ddd and facet arthritisr efer to pain management but missed the appointmen t, will rerefer them again Fibromyositis 22724237 M 79.7 ongoing muscle pain.eleva libertad aldolase in the past. recheck normal, ck normaldid not go to rheumatolo bety add flexeril prndiscuss ed cymbalta with the patient but she did not tryfu with pain management Mood disorder 54746163 F 39 mood up and down. will refer to psychiatri stwill add vraylar for depression which had some side effects and she stoppedwil l add cymbalta for this.possi ble focus problem and will refer to behavioral health.bambi gnosed with ADHD and was started on concerta Disorder o f iron metabolism 34519125 E83.10 TIBC low, iron level and saturation is high03/09: these levels were normal.eirc ritin level is normalwill recheck in future.she does not use iron regularlyh epatitis panel negative.l ower alcohol intake which she is having difficulty withwill check for hfe mutation which is pendingiro n saturation 53% improved down from 69%she has cut down on her drinking. with noted improvemen t.HFE mutation H63D heterozygo uswill rehceck levels since off alcohol now Alcoholism 9480237 F10.2 0 drinks frequently mostly binge drinkingco unseled on drinkingdi scussed different medication s.start naltrexone which she does not takeadvise d to contact alcohol rehab center for vivitrolsh e states she has slowed downwent to rehab 08/2024 to 09/2024 in [facility], [place] Anxiety 60457600 F41.9 on clonazepam for since 20started having panic attacks blackoutss chooling: did wellboyfri end suddenly, lot of stress due to familial stresstrie d different antidepres sants, zoloft, bupropion, lamictal in the past which did not helpdec 2021 admitted to psych facility for alcohol intoxicati on and potential suicidal intentions bupropion: sexual side effects and stopedvray lar: side effectswas diagnosed with ADHD Fatigue 52692132 R53.83 ongoingana negative 02/2022; kylah and anticcp: negativees r crp again normal Tobacco user 700975733 F 17.200 ongoing smoking Osteoarthr itis of right hip joint 4494529571 08484 M16.11 xr 03/10 will follow Arthritis of right sacroiliac joint 0787264789 540118 M13.88 cr 03/10 notedrheum atology referralha d elevated aldolase level.ongo ing fatigueCK level normalsche duled not until january 2025 Chronic pe lvic pain of female 769146861 R10.2 D25.1 ongoing mild for long time.fu with gynecology Pelvic ultrasound with fibroid uterusFoll owed up with gynecologewelina galvez Secondary amenorrhea 156 766506 N91.1 urine pocfollow up with female doctnow having menstruato in. 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 Degenerati on of lumbar intervertebral disc 00919013 M51.369 mild ddd on lumbar areapain mgmt referral done but she missed the dose Attention deficit hyperactivity disorder 956379397 F90.9 started on concerta by psychiatrewelina galvez 09/2024didorothy bledsoe with adhd.she needs to see psychiatri [facility] to make an appointmen t with them.will continue concertra in the interim.logan thomson referral [id number] Kirit Hankins MD [facility] [address] [place] [address] 12/03/2024 16:37:45 12/03/2024 17:30:00 Attention deficit hyperactivity disorder 190343002 F90.9 started on concerta by psychiatrewelina galvez 09/2024didorothy bledsoe with adhd.she needs to see psychiatri [facility] to make an appointmen t with them.will continue concertra in the interim.logan thomson referralco ncerta causing side effects.wi ll switch to adderall. she has tried this before Chronic low back pain 27 9363798 M54.50 xray done at chiropract orreceived the injection at the chiropract oron ibuprofen prnxr lumbar ddd and facet arthritisr efer to pain management but missed the appointmen t, will rerefer them againand scheduledw ill order MRI lumbar spine Fibromyositis 88539576 M 79.7 ongoing muscle pain.eleva libertad aldolase in the past. recheck normal, ck normaldid not go to rheumatolo bety add flexeril prndiscuss ed cymbalta with the patient but she did not tryfu with pain management will add gabpentin scheduleds cheduled with pain mgmt in february Mood disorder 15489190 F 39 mood up and down. will refer to psychiatrewelina martinez add vraylar for depression which had some side effects and she stoppedwil l add cymbalta for this.possi ble focus problem and will refer to behavioral health.bambi gnosed with ADHD and was started on concertaad d clonazpem prn Disorder o f iron metabolism 84082125 E83.10 TIBC low, iron level and saturation is high03/09: these levels were normal.eric ritin level is normalwill recheck in future.she does not use iron regularlyh epatitis panel negative.l ower alcohol intake which she is having difficulty withwill check for hfe mutation which is pendingiro n saturation 53% improved down from 69%she has cut down on her drinking. with noted improvemen t.HFE mutation H63D heterozygo usrecheck level with improvemen t Alcoholism 3462918 F10.2 0 drinks frequently mostly binge drinkingco unseled on drinkingdi scussed different medication s.start naltrexone which she does not takeadvise d to contact alcohol rehab center for vivitrolsh e states she has slowed downwent to rehab 08/2024 to 09/2024 in [facility], [place] Anxiety 09826044 F41.9 on clonazepam for since 20started having panic attacks blackoutss chooling: did wellboyfri end suddenly, lot of stress due to familial stresstrie d different antidepres sants, zoloft, bupropion, lamictal in the past which did not helpdec 2021 admitted to psych facility for alcohol intoxicati on and potential suicidal intentions bupropion: sexual side effects and stopedvray lar: side effectswas diagnosed with ADHD Fatigue 13710277 R53.83 ongoingana negative 02/2022; kylah and anticcp: negativees r crp again normal Tobacco user 491474686 F 17.200 ongoing smoking Osteoarthr itis of right hip joint 1328457828 42868 M16.11 xr 03/10 will follow Arthritis of right sacroiliac joint 0489806967 662277 M13.88 cr 03/10 notedrheum atology referralha d elevated aldolase level.ongo ing fatigueCK level normalsche duled not until january 2025 Chronic pe lvic pain of female 811153909 R10.2 D25.1 ongoing mild for long time.fu with gynecology Pelvic ultrasound with fibroid uterusFoll owed up with gynecologi st Secondary amenorrhea 156 948514 N91.1 urine pocfollow up with female doctnow having menstruato in. 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 Degenerati on of lumbar intervertebral disc 54586229 M51.369 mild ddd on lumbar areapain mgmt referral done but she missed the dose [id number] Kirit Hankins MD [facility] [address] [place] [address] 12/31/2024 16:23:14 12/31/2024 17:08:59 Attention deficit hyperactivity disorder 180697879 F90.9 started on concerta by psychiatrewelina aglvez 09/2024diag nosed with adhd.she needs to see psychiatri [facility] to make an appointmen t with them.will continue concertra in the interim.ga nolbertoway referral and going to see a psych on cer ta causing side effects.wi ll switch to adderall. she has tried this before currently on adderall Chronic low back pain 27 8014998 M54.50 xray done at chiropract orreceived the injection at the chiropract oron ibuprofen prnxr lumbar ddd and facet arthritisr efer to pain management but missed the appointmen t, will reefer them againand scheduledw ill order MRI lumbar spine scheduled nowcurrent ly doing therapypai n management in february 2025 Fibromyositis 26959978 M 79.7 ongoing muscle pain.eleva libertad aldolase in the past. recheck normal, ck normaldid not go to rheumatolo bety add flexeril prndiscuss ed cymbalta with the patient but she did not tryfu with pain management added gabpentin scheduled but she takes it as neededsche duled with pain mgmt in february Mood disorder 15533191 F 39 mood up and down. will refer to psychiatrewelina jc vraylar for depression which had some side effects and she stoppedwil l add cymbalta for this.possi ble focus problem and will refer to behavioral health.bambi gnosed with ADHD and was started on concertaad d clonazpem prnadded bupropion: however caused crying episode Disorder o f iron metabolism 68492310 E83.10 TIBC low, iron level and saturation is high03/09: these levels were normal.eric ritin level is normalwill recheck in future.she does not use iron regularlyh epatitis panel negative.l ower alcohol intake which she is having difficulty withwill check for hfe mutation which is pendingiro n saturation 53% improved down from 69%she has cut down on her drinking. with noted improvemen t.HFE mutation H63D heterozygo usrecheck level with improvemen t Alcoholism 2065261 F10.2 0 drinks frequently mostly binge drinkingco unseled on drinkingdi scussed different medication s.start naltrexone which she does not takeadvise d to contact alcohol rehab center for vivitrolsh e states she has slowed downwent to rehab 08/2024 to 09[place] [facility], [place] sporadical ly.continu es on AAadd acamprosat e Anxiety 56216762 F41.9 on clonazepam for since 20started having panic attacks blackoutss chooling: did wellboyfri end suddenly, lot of stress due to familial stresstrie d different antidepres sants, zoloft, bupropion, lamictal in the past which did not helpdec 2021 admitted to psych facility for alcohol intoxicati on and potential suicidal intentions bupropion: sexual side effects and stoppedvra ylar: side effectswas diagnosed with ADHD Fatigue 67912321 R53.83 ongoingana negative 02/2022; kylah and anticcp: negativees r crp again normal Tobacco user 311365725 F 17.200 ongoing smoking Osteoarthr itis of right hip joint 9768212156 08534 M16.11 xr 03/10 will follow Arthritis of right sacroiliac joint 5299972235 550980 M13.88 cr 03/10 notedrheum atology referralha d elevated aldolase level.ongo ing fatigueCK level normalsche duled not until january 2025 Chronic pe lvic pain of female 912949038 R10.2 D25.1 ongoing mild for long time.fu with gynecology Pelvic ultrasound with fibroid uterusFoll owed up with gynecologi st Secondary amenorrhea 156 096705 N91.1 urine pocfollow up with female doctnow having menstruato in. 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 Degenerati on of lumbar intervertebral disc 59163405 M51.369 mild ddd on lumbar areapain mgmt referral done but she missed the dose [id number] Kirit Hankins MD [facility] [address] [place] [address] 02/03/2025 15:25:13 02/03/2025 16:10:11 Attention deficit hyperactivity disorder 944575517 F90.9 started on concerta by dion galvez 09/2024diag nosed with adhd.she needs to see psychiatrewelina littlejohn to make an appointmen t with them.will continue concertra in the interim.ga nolbertoway referral and going to see a psych on concer ta causing side effects.wi ll switch to adderall. she has tried this before currently on adderall Chronic low back pain 27 6478731 M54.50 xray done at chiropract orreceived the injection at the chiropract oron ibuprofen prnxr lumbar ddd and facet arthritisr efer to pain management but missed the appointmen t, will reefer them againand scheduledw ill order MRI lumbar spine scheduled nowcurrent ly doing therapypai n management note reviewed. planned left SI joint injection however was denied by insuranceX R SI joint unremarkab le.other xrays unremarakb le as well. Fibromyositis 89864652 M 79.7 ongoing muscle pain.eleva libertad aldolase in the past. recheck normal, ck normaldid not go to rheumatolo bety add flexeril prndiscuss ed cymbalta with the patient but she did not tryfu with pain management added gabpentin scheduled but she takes it as neededssee ing pain managmenet now Mood disorder 53975511 F 39 mood up and down. will refer to dion jc vraylar for depression which had some side effects and she stoppedwil l add cymbalta for this.possi ble focus problem and will refer to behavioral health.bambi gnosed with ADHD and was started on concertaad d clonazpem prnadded bupropion: however caused crying episode Disorder o f iron metabolism 71599658 E83.10 TIBC low, iron level and saturation is high03/09: these levels were normal.eric ritin level is normalwill recheck in future.she does not use iron regularlyh epatitis panel negative.l ower alcohol intake which she is having difficulty withwill check for hfe mutation which is pendingiro n saturation 53% improved down from 69%she has cut down on her drinking. with noted improvemen t.HFE mutation H63D heterozygo usrecheck level with improvemen t Alcoholism 2941918 F10.2 0 drinks frequently mostly binge drinkingco unseled on drinkingdi scussed different medication s.start naltrexone which she does not takeadvise d to contact alcohol rehab center for vivitrolsh e states she has slowed downwent to rehab 08/2024 [place], [place] sporadical [place].continu es on AAadd acamprosat e which she has not received yet Anxiety 01476425 F41.9 on clonazepam for since 20started having panic attacks blackoutss chooling: did wellboyfri end suddenly, lot of stress due to familial stresstrie d different antidepres sants, zoloft, bupropion, lamictal in the past which did not helpdec 2021 admitted to psych facility for alcohol intoxicati on and potential suicidal intentions bupropion: sexual side effects and stoppedvra ylar: side effectswas diagnosed with ADHD Fatigue 96167666 R53.83 ongoingana negative 02/2022; kylah and anticcp: negativees r crp again normal Tobacco user 174968263 F 17.200 ongoing smoking Osteoarthr itis of right hip joint 9193967217 71755 M16.11 xr 03/10 will follow Arthritis of right sacroiliac joint 6123086501 127175 M13.88 cr 03/10 notedrheum atology referralha d elevated aldolase level.ongo ing fatigueCK level normalsche duled not until january 2025 Chronic pe lvic pain of female 020611917 R10.2 D25.1 ongoing mild for long time.fu with gynecology Pelvic ultrasound with fibroid uterusFoll owed up with gynecologi st Secondary amenorrhea 156 556788 N91.1 urine pocfollow up with female doctnow having menstruato in. 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 Degenerati on of lumbar intervertebral disc 53396718 M51.369 mild ddd on lumbar areapain mgmt referral done but she missed the dose [id number] Kirit Hankins MD [facility] [address] [place] [address] 03/24/2025 15:36:11 03/24/2025 16:45:11 Attention deficit hyperactivity disorder 646195678 F90.9 started on concerta by psychiatrewelina galvez 09/2024diag nosed with adhd.she needs to see psychiatri st.encoura littlejohn to make an appointmen t with them.will continue concertra in the interim.ga teway referral and going to see a psych on concer ta causing side effects.wi ll switch to adderall. she has tried this before currently on adderallwi ll increase to 30 mg daily Chronic low back pain 27 5970469 M54.50 xray done at chiropract orreceived the injection at the chiropract oron ibuprofen prnxr lumbar ddd and facet arthritisr efer to pain management but missed the appointmen t, will reefer them againand scheduledw ill order MRI lumbar spine scheduled nowcurrent ly doing therapypai n management note reviewed. planned left SI joint injection however was denied by insuranceX R SI joint unremarkab le.other x-rays unremarkab le as well. Fibromyositis 22433149 M 79.7 ongoing muscle pain.eleva libertad aldolase in the past. recheck normal, ck normaldid not go to rheumatolo gistsera add flexeril prndiscuss ed cymbalta with the patient but she did not tryfu with pain management added gabpentin scheduled but she takes it as neededssee ing pain managmenet nowalso seen rheumatolo gist.added cyclobenza ivy and diclofenac she lost diclofenac . will send refill out Mood disorder 87207403 F 39 mood up and down. 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 with noted improvemen t.HFE mutation H63D heterozygo usrecheck level with improvemen t Alcoholism 2725642 F10.2 0 drinks frequently mostly binge drinkingco unseled on drinkingdi scussed different medication s.start naltrexone which she does not takeadvise d to contact alcohol rehab center for vivitrolsh e states she has slowed downwent to rehab 08/2024 to 09[place]2024 in [facility], [place] sporadical ly.continu es on AAadd acamprosat e which she has not received yet Anxiety 11133918 F41.9 on clonazepam for since 20started having panic attacks blackoutss chooling: did wellboyfri end suddenly, lot of stress due to familial stresstrie d different antidepres sants, zoloft, bupropion, lamictal in the past which did not helpdec 2021 admitted to psych facility for alcohol intoxicati on and potential suicidal intentions bupropion: sexual side effects and stoppedvra ylar: side effectswas diagnosed with ADHD Fatigue 25376780 R53.83 ongoingana negative 02/2022; kylah and anticcp: negativees r crp again normal Tobacco user 061016698 F 17.200 quit now Osteoarthr itis of right hip joint 4870169344 99706 M16.11 xr 03/10 will follow Arthritis of right sacroiliac joint 2033344312 522961 M13.88 cr 03/10 notedrheum atology referralha d elevated aldolase level.ongo ing fatigueCK level normalsche duled not until january 2025 Chronic pe lvic pain of female 479029840 R10.2 D25.1 ongoing mild for long time.fu with gynecology Pelvic ultrasound with fibroid uterusFoll owed up with gynecologi st Secondary amenorrhea 156 994450 N91.1 urine poc negativefo llow up with female doctnow having menstruato in. owner/operator give her some medsnow resolved Degenerati on of lumbar intervertebral disc 47303665 M51.369 mild ddd on lumbar areamRI 01/10: mild disc bulge wtih facet arthritis, mild neuro foraminal narrowing noted at one level in low backpain mgmt referral done and going to see 04/14/25see n pain management completed physical therapy with not much relief [id number] Kirit Hankins MD [facility] [address] [place] [address] 04/22/2025 14:31:34 04/22/2025 15:09:01 Projectile vomiting 5374801 R11.12 45677243 resolving now.she has started on drinking again.abd exam is benign.inga e nausea still present,wi ll give zofran odt Degenerati on of lumbar intervertebral disc 25996703 M51.369 mild ddd on lumbar areamRI 01/10: mild disc bulge wtih facet arthritis, mild neuro foraminal narrowing noted at one level in low backpain mgmt referral done and going to see 04/14/25see n pain management completed physical therapy with not much reliefplan nataly to get her to injection soon Attention deficit hyperactivity disorder 178313751 F90.9 started on concerta by dion galvez 09/2024diag nosed with adhd.she needs to see psychiatrewelina littlejohn to make an appointmen t with them.will continue concertra in the interim.logan thomson referral and going to see a psych on cer ta causing side effects.wi ll switch to adderall. she has tried this before currently on adderallin creased to 30 mg dailynow seeing dion galvez Chronic low back pain 27 1642410 M54.50 xray done at chiropract orreceived the injection at the chiropract oron ibuprofen prnxr lumbar ddd and facet arthritisr efer to pain management but missed the appointmen t, will reefer them againand scheduledw ill order MRI lumbar spine scheduled nowcurrent ly doing therapypai n management note reviewed. planned left SI joint injection however was denied by insuranceX R SI joint unremarkab le.other x-rays unremarkab le as well. Fibromyositis 60517349 M 79.7 ongoing muscle pain.eleva libertad aldolase in the past. recheck normal, ck normaldid not go to rheumatolo gistwialivia add flexeril prndiscuss ed cymbalta with the patient but she did not tryfu with pain management added gabpentin scheduled but she takes it as neededssee ing pain managmenet nowalso seen rheumatolo gist.added cyclobenza ivy and diclofenac she lost diclofenac . will send refill out Mood disorder 69792677 F 39 mood up and down. will refer to psychiatri michelle add vraylar for depression which had some side effects and she stoppedwil l add cymbalta for this.possi ble focus problem and will refer to behavioral health.bambi gnosed with ADHD and was started on concertaad d clonazpem prnadded bupropion: however caused crying episodeshe has now seeing psychiatri st Disorder o f iron metabolism 07571281 E83.10 TIBC low, iron level and saturation is high03/09: these levels were normal.eric ritin level is normalwill recheck in future.she does not use iron regularlyh epatitis panel negative.l ower alcohol intake which she is having difficulty withwill check for hfe mutation which is pendingiro n saturation 53% improved down from 69%she has cut down on her drinking. with noted improvemen t.HFE mutation H63D heterozygo usrecheck level with improvemen t Alcoholism 5544114 F10.2 0 drinks frequently mostly binge drinkingco unseled on drinkingdi scussed different medication s.start naltrexone which she does not takeadvise d to contact alcohol rehab center for vivitrolsh e states she has slowed downwent to rehab 08/2024 [place] 09[place]24 [place] [facility], [place] sporadical [place].continu es on AAadd acamprosat e which she has not received yetshe went to see psychiatir st and going to receive Anxiety 02309313 F41.9 on clonazepam for since 20started having panic attacks blackoutss chooling: did wellboyfri end suddenly, lot of stress due to familial stresstrie d different antidepres sants, zoloft, bupropion, lamictal in the past which did not helpdec 2021 admitted to psych facility for alcohol intoxicati on and potential suicidal intentions bupropion: sexual side effects and stoppedvra ylar: side effectswas diagnosed with ADHD Fatigue 62752394 R53.83 ongoingana negative 02/2022; kylah and anticcp: negativees r crp again normal Tobacco user 985790241 F 17.200 quit now Osteoarthr itis of right hip joint 0965676966 88378 M16.11 xr 03/10 will follow Arthritis of right sacroiliac joint 1293988887 157768 M13.88 cr 03/10 notedrheum atology referralha d elevated aldolase level.ongo ing fatigueCK level normalsche duled not until january 2025 Chronic pe lvic pain of female 735455658 R10.2 D25.1 ongoing mild for long time.fu with gynecology Pelvic ultrasound with fibroid uterusFoll owed up with gynecologi Secondary amenorrhea 156 156762 N91.1 urine poc negativefo llow up with female doctnow having menstruato in. owner/operator give her some medsnow resolved Dry eyes 587574911 H04.1 23 5442105 [id number] Kirit Hankins MD [facility] [address] [place] [address] 05/20/2025 16:32:49 05/20/2025 17:00:07 Degeneration of lumbar intervertebral disc 95489635 M51.369 mild ddd on lumbar areamRI 01/10: mild disc bulge wtih facet arthritis, mild neuro foraminal narrowing noted at one level in low backpain mgmt referral done and going to see 04/14/25see n pain management completed physical therapy with not much reliefs/p injection 05/18/2025: with improvemen t Attention deficit hyperactivity disorder 447318785 F90.9 started on concerta by dion galvez 09/2024diag nosed with adhd.she needs to see psychiatri st.encoura littlejohn to make an appointmen t with them.will continue concertra in the interim.logan thomson referral and going to see a psych on ta causing side effects.wi ll switch to adderall. she has tried this before currently on adderallin creased to 30 mg dailynow seeing dion galvez Chronic low back pain 27 3115267 M54.50 xray done at chiropract orreceived the injection at the chiropract oron ibuprofen prnxr lumbar ddd and facet arthritisr efer to pain management but missed the appointmen t, will reefer them againand scheduledw ill order MRI lumbar spine scheduled nowcurrent ly doing therapypai n management note reviewed. planned left SI joint injection however was denied by insuranceX R SI joint unremarkab le.other x-rays unremarkab le as well. Fibromyositis 56773569 M 79.7 ongoing muscle pain.eleva libertad aldolase in the past. recheck normal, ck normaldid not go to rheumatolo gistwill add flexeril prndiscuss ed cymbalta with the patient but she did not tryfu with pain management added gabpentin scheduled but she takes it as neededssee ing pain managmenet nowalso seen rheumatolo gist.added cyclobenza ivy and diclofenac she lost diclofenac .sent refill Mood disorder 20937604 F 39 mood up and down. will refer to psychiatri stsera add vraylar for depression which had some side effects and she stoppedwil l add cymbalta for this.possi ble focus problem and will refer to behavioral health.bambi gnosed with ADHD and was started on concertaad d clonazpem prnadded bupropion: however caused crying episodeshe has now seeing psychiatri st Disorder o f iron metabolism 45163987 E83.10 TIBC low, iron level and saturation is high03/09: these levels were normal.eric ritin level is normalwill recheck in future.she does not use iron regularlyh epatitis panel negative.l ower alcohol intake which she is having difficulty withwill check for hfe mutation which is pendingiro n saturation 53% improved down from 69%she has cut down on her drinking. with noted improvemen t.HFE mutation H63D heterozygo usrecheck level with improvemen t Alcoholism 1974865 F10.2 0 drinks frequently mostly binge drinkingco unseled on drinkingdi scussed different medication s.start naltrexone which she does not takeadvise d to contact alcohol rehab center for vivitrolsh e states she has slowed downwent to rehab 08/2024 [place] 09[place]2024 [place] [facility], [place] sporadical [place].continu es on AAadd acamprosat e which she has not received yetshe went to see psychiatir st and going to receivelas t drink: she does not knowshe is not able to go get vivitrolwi ll start on naltrexone Anxiety 26656027 F41.9 on clonazepam for since 20started having panic attacks blackoutss chooling: did wellboyfri end suddenly, lot of stress due to familial stresstrie d different antidepres sants, zoloft, bupropion, lamictal in the past which did not helpdec 2021 admitted to psych facility for alcohol intoxicati on and potential suicidal intentions bupropion: sexual side effects and stoppedvra ylar: side effectswas diagnosed with ADHD Fatigue 45024377 R53.83 ongoingana negative 02/2022; kylah and anti-ccp: negativees r crp again normal Tobacco user 697787313 F 17.200 quit now Osteoarthr itis of right hip joint 8421550716 86410 M16.11 xr 03/10 will follow Arthritis of right sacroiliac joint 6904306749 739093 M13.88 cr 03/10 notedrheum atology referralha d elevated aldolase level.ongo ing fatigueCK level normalsche duled not until january 2025 Chronic pe lvic pain of female 970450353 D25.1 ongoing mild for long time.fu with gynecology Pelvic ultrasound with fibroid uterusFoll owed up with gynecologi st Secondary amenorrhea 156 003843 N91.1 urine poc negativefo llow up with female doctnow having menstruato in. owner/operator give her some medsnow resolved Dry eyes 423811634 H04.1 23 6820661 refresh plus Chronic insomnia 7482677 04 F51.04 742887 on trazodone prntreid int eh past and worked well. [id number] Kirit Hankins MD [facility] [address] [place] [address] 06/23/2025 11:02:24 06/23/2025 11:40:48 Attention deficit hyperactivity disorder 372327340 F90.9 started on concerta by psychiatrewelina galvez 09/2024diag nosed with adhd.she needs to see psychiatri st.encoura littlejohn to make an appointmen t with them.will continue concertra in the interim.ga teway referral and going to see a psych on cer ta causing side effects.wi ll switch to adderall. she has tried this before currently on adderallin creased to 30 [address] dailynow seeing psychiatri [address] [place] on of lumbar intervertebral disc 41944660 M51.369 mild ddd on lumbar areamRI 01/10: mild disc bulge wtih facet arthritis, mild neuro foraminal narrowing noted at one level in low backpain mgmt referral done and going to see 04/14/25see n pain management completed physical therapy with not much reliefs/p injection 05/18/2025: with improvemen tpain back againshe is planned for left L3,L4, L5 RFA planned Chronic low back pain 27 2383508 M54.50 xray done at chiropract orreceived the injection at the chiropract oron ibuprofen prnxr lumbar ddd and facet arthritisr efer to pain management but missed the appointmen t, will reefer them againand scheduledm RI 01/10: mild disc bulge wtih facet arthritis, mild neuro foraminal narrowing noted at one level in low backcurren tly doing therapypai n management note reviewed. planned left SI joint injection however was denied by insuranceX R SI joint unremarkab le.other x-rays unremarkab le as well. Fibromyositis 53529453 M 79.7 ongoing muscle pain.eleva libertad aldolase in the past. recheck normal, ck normaldid not go to rheumatolo laurawialivia add flexeril prndiscuss ed cymbalta with the patient but she did not tryfu with pain management added gabpentin scheduled but she takes it as neededssee ing pain managmenet nowalso seen rheumatolo gist.added cyclobenza ivy and diclofenac she lost diclofenac .sent refill Mood disorder 71956659 F 39 mood up and down. will refer to psychiatri michelle add vraylar for depression which had some side effects and she stoppedwil l add cymbalta for this.possi ble focus problem and will refer to behavioral health.bambi gnosed with ADHD and was started on concertaad d clonazpem prnadded bupropion: however caused crying episodeshe has now seeing psychiatri Disorder o f iron metabolism 78926980 E83.10 TIBC low, iron level and saturation is high03/09: these levels were normal.eric ritin level is normalwill recheck in future.she does not use iron regularlyh epatitis panel negative.l ower alcohol intake which she is having difficulty withwill check for hfe mutation which is pendingiro n saturation 53% improved down from 69%she has cut down on her drinking. with noted improvemen t.HFE mutation H63D heterozygo usrecheck level with improvemen t Alcoholism 2917516 F10.2 0 drinks frequently mostly binge drinkingco unseled on drinkingdi scussed different medication s.start naltrexone which she does not takeadvise d to contact alcohol rehab center for vivitrolsh e states she has slowed downwent to rehab 08/2024 to 09[place]2024 [facility], [place] sporadical [place].continu es on AAadd acamprosat e which she has not received yetshe went to see psychiatir st and going to receivelas t drink: she does not knowshe is not able to go get vivitrolst arted on naltrexone Anxiety 45212176 F41.9 on clonazepam for since 20started having panic attacks blackoutss chooling: did wellboyfri end suddenly, lot of stress due to familial stresstrie d different antidepres sants, zoloft, bupropion, lamictal in the past which did not helpdec 2021 admitted to psych facility for alcohol intoxicati on and potential suicidal intentions bupropion: sexual side effects and stoppedvra ylar: side effectswas diagnosed with ADHD Fatigue 81481991 R53.83 ongoingana negative 02/2022; kylah and anti-ccp: negativees r crp again normal Tobacco user 833069141 F 17.200 quit now Osteoarthr itis of right hip joint 9777685174 06228 M16.11 xr 03/10 will follow Arthritis of right sacroiliac joint 8788359888 945708 M13.88 cr 03/10 notedrheum atology referralha d elevated aldolase level.ongo ing fatigueCK level normalseen rheumatolo gist Chronic pe lvic pain of female 278280491 D25.1 ongoing mild for long time.fu with gynecology Pelvic ultrasound with fibroid uterusFoll owed up with gynecologi st Secondary amenorrhea 156 677674 N91.1 urine poc negativefo llow up with female doctnow having menstruato in. owner/operator give her some medsnow resolved Dry eyes 180379778 H04.1 23 9555642 refresh plus Chronic insomnia 8725876 04 F51.04 670545 on trazodone prntreid in the past and worked well. Health Concerns Section Related Observation LastModified by Organization Detai ls LastModified Time None Recorded Concern Status LastModified by Organization Details LastModified Time None Recorded Advance Directives Directive None Recorded Payers Insurance Date Sequence Insurance Name Policy Number Policy Odell Covered Member ID Odell Member ID Guarantor Name 06/29/2025 1 [facility] - DOS ON OR AFTER 21 (MEDICAID REPLACEMENT - HMO) Kari Song [id number] Kari Song Notes Date Note Type Note Provider Name and Address Organization Details Recorded Time 02/03/2025 text/html ROS as noted in the HPI Pt here for med refill. C/O back pain 10/26. She is resuming PT next week. No chest pain, shortness of breath, nausea or vomiting. she is also seeing pain management. [facility] and labs werer eviewed in detail . Kirit Hankins MD [address] [facility] [address], [place], [address], [facility] 02/03/2025 18:21:53 03/24/2025 text/html Pt here for follow up. Patient completed physical therapy with no improvement of lower back pain. She is waiting to obtain MRI at the end of March. Back pain 11/26. She takes IBP 800mg daily for the pain. She has been having constipation. No chest pain, shortness of breath, nausea or vomiting. MD Eliseo Estrada [address] [facility] [address], [place], [address], [facility] 03/24/2025 18:45:04 04/22/2025 text/html ROS as noted in the HPI Pt here for med refill. Pt c/o vomiting on Saturday while eating at [employer]. Since Saturday, she has been feeling nauseous, gassy, bloated, and having dark stool. test negative. No chest pain, shortness of breath. she had relapsed on her alcohol and is now seeing psychiatirst and addiciton. she is goign to start vivitrol soon. Kirit Hankins MD [address] [facility] [address], [place], [address], [facility] 04/22/2025 17:23:35 05/20/2025 text/html ROS as noted in the HPI Pt here for follow up. Pt received injection in back on 05/18/2025. Pain improved in 2 hours and was completely pain free next morning. 010. No chest pain, shortness of breath, nausea or vomiting. Kirit Hankins MD [address] [facility] [address], [place], [address], [facility] 05/20/2025 16:57:38 06/23/2025 text/html ROS as noted in the HPI Pt here for med refill. Pt c/o fatigue and body aches. She is having tooth pain after recent dental work. She is following up with dentist. No chest pain, shortness of breath, nausea or vomiting. Kirit Hankins MD [address] [facility] [address], [place], [address], [facility] 06/23/2025 11:36:05 OBGyn Episode No OBEpisode recorded.
--- OUTSIDE RECORDS SUMMARY | 2025-07-06 17:38 | XMS_ITS | Continuity of Care Document ---
Author Organization [place] - [facility], [facility] Address [address] [facility] [address] [place] [address] Assessment No assessment recorded. Plan of Treatment Reminders Order Date Submit Date Provider Last Modified By Organization Details Last Modified Time Details Appointments Follow Up 15 2024 02:45P M Kirit Hankins MD Not available Not available Not available Lab None recorded. Referral None recorded. Procedures None recorded. Surgeries None recorded. Imaging None recorded. Medication Orders Refresh Tears 0.5 % eye drops 2024 025 [id number], [address] [place], [id number], 04/22/2025 15:05:42 ondansetr on 4 mg disintegr ating tablet 2024 025 COLBERT [facility] #[id number], [address] [place], [id number], 04/22/2025 15:05:43 Adderall XR 30 mg capsule,e xtended release 2024 025 [facility] #[id number], [address] [place], [id number], 04/22/2025 15:05:37 clonazepa m 0.5 mg tablet 2024 025 [facility] #[id number], [address] [place], [id number], 04/22/2025 15:05:37 Patient TargetsNo targets recorded. Patient Instructions Encounter Date Encounter Id Patient Instructions Last Modified By Organization Details Last Modified Time 04/22/2025 [id number] Quitting Tobacco : Care Instructions [email or web address] Not available 04/22/2025 15:05:29 dry eyes: care instructions [email or web address] Not available 04/22/2025 15:05:29 chronic pelvic pain: care instructions [email or web address] Not available 04/22/2025 15:05:29 attention defici t hyperactivity disorder (ADHD) in adults: care instructions [email or web address] Not available 04/22/2025 15:05:29 learning about mood disorders [email or web address] Not available 04/22/2025 15:05:29 learning about mood disorders Not available 04/22/2025 15:05:29 I spent a total of __31____ minutes (excluding separately reportable procedure time ) in care of this patient. [email or web address] Not available 04/22/2025 15:03:05 Reason for Referral None Reported. Problems Name Problem SNOMED Code Status Onset Date Resolution Date Notes Provider Name and Address Organization Details Recorded Time Altered bowel function 97936685 Completed 06/12/2023 Altered bowel habits Kirit Hankins MD [address] [facility] [address], [place], [address] [facility] 3 12:35:47 Acute bronchit is 63136502 Completed 06/12/2023 Acute bronchit is Kirit Hankins MD [address] [facility] [address], [place], [address], [facility] 3 12:32:32 Late effect of fracture of skull AND/OR face bones 66100490 Completed 06/12/2023 Late effect of fracture of skull AND/OR face bones Kirit Hankins MD [address] [facility] [address], [place], [address], [facility] 3 12:35:09 Depressi ve disorder 43343794 Completed 06/12/2023 Depresse d Depres sive disorder Davida Reyes [facility], [facility] 4 10:32:00 Toxicode ndron radicans poisonin g 04257303 Completed 06/12/2023 Poison emily poisonin g Kirit Hankins MD [address], [place], [address], [facility] 3 12:35:26 Acute mastitis 08781100 Completed 06/12/2023 Acute mastitis Kirit Hankins MD [address] [facility], [place], [address], [facility] 3 12:32:34 Fatigue 89959495 Active Fatigue Kirit Hankins MD [address], [place], [address], [facility] 5 16:51:45 Acute rhinosin usitis 457192872 Completed 06/12/2023 Acute rhinosin usitis Kirit Hankins MD [address] [facility], [place], [address], [facility] 3 12:32:36 Pleuriti c pain 5928416 Completed 06/12/2023 Pleuriti c pain Kirit Hankins MD [address] [facility] [facility] [address], [place], [address], [facility] 3 12:35:32 Anxiety 08125957 Active 2014 Anxiety Kirit Hankins MD [address] [facility], [place], [address], [facility] 5 16:50:20 Urinary tract infectio us disease 82904223 Completed 201406/12/2023 Urinary tract infectio us disease Kirit Hankins MD [address] [facility] [address], [place], [address], [facility] 4 12:56:26 Tobacco user 736504378 Active 2014 Tobacco use Kirit Hankins MD [address] [facility] [address], [place], [address], [facility] 5 16:50:20 Alcoholi sm 8235474 Active 2014 Alcoholi sm Kirit Hankins MD [address], [place], [address], [facility] 5 16:55:01 Panic attack 988850611 Completed 201506/12/2023 Panic attack Kirit Hankins MD [address] [facility] [address], [place], [address], [facility] 3 12:35:39 Gastriti s 5868234 Completed 201706/12/2023 Gastriti s Kirit Hankins MD [address] [facility] [address], [place], [address], [facility] 3 12:35:41 Fibromyo sitis 16416773 Active 2022 Kirit Hankins MD [address] [facility] [address], [place], [address], [facility] 5 16:50:20 Osteoart hritis of right hip joint 83167056839 9107 Active 2022 Kirit Hankins MD [address] [facility] [address], [place], [address], [facility] 5 16:50:20 Arthriti s of right sacroili ac joint 92708263234 83562 Active 2022 Kirit Hankins MD [address] [facility] [address], [place], [address], [facility] 5 16:50:20 Disorder of iron metaboli sm 12891107 Active 2022 Kirit Hankins MD [address] [facility] [address], [place], [address], [facility] 5 16:50:20 Chronic pelvic pain of female 411253644 Active 2023 Kirit Hankins MD [address], [place], [address], [facility] 5 16:50:21 Acute upper respirat ory infectio n 43601994 Completed 202306/16/2024 Kirit Hankins MD [address], [place], [address], [facility] 4 12:56:13 Recurren t urinary tract infectio n 543382175 Completed 202306/16/2024 Kirit Hankins MD [address], [place], [address], [facility] 4 12:56:20 Urinary tract infectio us disease 33897752 Completed 202306/16/2024 Urinary tract infectio us disease Kirit Hankins MD [address], [place], [address], [facility] 4 12:56:25 Depressi ve disorder 67591279 Active 2023 Depresse d Depres sive disorder Davida Reyes [facility] 4 10:32:00 Mood disorder 21349428 Active 2023 Kirit Hankins MD [address], [place], [address], [facility] 5 16:50:20 Chronic low back pain 872261666 Active 2023 Kirit Hankins MD [address], [place], [address], [facility] 5 16:50:20 Secondar y amenorrh ea 865162958 Active 2023 Kirit Hankins MD [address] [facility], [place], [address], [facility] 5 16:50:21 Degenera tion of lumbar interver tebral disc 38660971 Active 2023 Kirit Hankins MD [address] [facility] [facility] [address], [place], [address], [facility] 5 16:50:20 Attentio n deficit hyperact ivity disorder 189017381 Active 2024 Kirit Hankins MD [address] [facility] [address] [facility] [address], [place], [address], [facility] 5 16:50:20 Projecti le vomiting 9289713 Active 2024 Kriit Hankins MD [address] [facility] [address] [facility] [address], [place], [address], [facility] 5 14:54:59 Dry eyes 485138668 Active 2024 Kirit Hankins MD [address] [facility] [address], [place], [address], [facility] 5 15:03:44 Chronic insomnia 930305023 Active 2024 Kirit Hankins MD [address] [facility] [address] [facility] [address], [place], [address], [facility] 5 16:50:58 Problem Notes None recorded. Medical [...] 5 160.02 cm 97.3 [degF] 20.4 kg/m2 82624.1 2 g 68 /min 18 /min 99 % 99 % 104/60 mm[Hg] Davida Reyes [facility] 5 14:43:29 Social History None recorded. Functional Status None [...] Recorded Time M[facility] 9 [facility] 11:43:57 MMR 3 completed [place] [facility] [facility]23 11:43:57 COVID-19, mRNA, LNP-S, PF, 30 mcg/0.3 mL dose, gali-sucrose 2 completed [place] [facility] [facility]12[facility]2023 11:43:57 DTP 0 completed [place] [facility] [facility]12[facility]2023 11:43:57 DTP 8 completed [place] [facility] [facility]/12/2023 11:43:57 DTP 8 completed [place] [facility] [facility]12[facility]2023 11:43:57 DTP 3 completed [place] [facility] [facility]12[facility]2023 11:43:57 DTP 8 completed [place] [facility] [facility]/12/2023 11:43:57 OPV, trivalent 0 completed [place] [facility] [facility]/12/2023 11:43:57 OPV, trivalent 8 completed [place] null, [facility] 06/12/2023 11:43:57 OPV, trivalent 8 completed [place] null, [facility] 06/12/2023 11:43:57 OPV, trivalent 3 completed [place] null, [facility] 06/12/2023 11:43:57 Td (adult), 2 Lf tetanus toxoid, preservative free, adsorbed 3 completed [place] null, [facility] 06/12/2023 11:43:57 Hep B, adolescent or pediatric 8 completed [place] null, [facility] 06/12/2023 11:43:57 Hep B, adolescent or pediatric 7 completed [place] null, [facility] 06/12/2023 11:43:57 Hep B, adolescent or pediatric 7 completed [place] null, [facility] 06/12/2023 11:43:57 Past Encounters Encounter ID Performer Location Encounter Start Date Encounter Closed Date Diagnosis/Indication Diagnosis SNOMED-CT Code Diagnosis ICD10 Code Diagnosis IMO Codes Diagnosis Note [id number] Kirit Hankins MD [place] [address] [facility] [address] [place] [address] 03/24/2025 15:36:11 03/24/2025 16:45:11 Attention deficit hyperactivity disorder 763734477 F90.9 started on concerta by dion galvez 09/2024nate bledsoe with adhd.she needs to see psychiatrewelina littlejohn to make an appointmen t with them.will continue concertra in the interim.logan thomson referral and going to see a psych on ta causing side effects.wi ll switch to adderall. she has tried this before currently on adderallwi ll increase to 30 mg daily Chronic low back pain 27 2224151 M54.50 xray done at chiropract orreceived the [...] le.other x-rays unremarkab le as well. Fibromyositis 82718179 M 79.7 ongoing muscle pain.eleva libertad aldolase [...] . will send refill out Mood disorder 51083550 F 39 mood up and down. 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 TIBC low, iron level and saturation [...] t.HFE mutation H63D heterozygo usrecheck level with improvestepan t Alcoholism 0101412 F10.2 0 drinks frequently mostly binge drinkingco unseled on drinkingdi scussed different medication s.start naltrexone which she does not takeadvise d to contact alcohol rehab center for vivitrolsh e states she has slowed downwent to rehab 08/2024 to 09[place]20[facility] sporadical [place].continu es on AAadd acamprosat e which she has not received yet Anxiety 62064042 F41.9 on clonazepam for since 18started having panic attacks blackoutss chooling: did wellboyfri end suddenly, lot of stress due to familial stresstrie d different antidepres sants, zoloft, bupropion, lamictal in the past which did not helpdec 2021 admitted to psych facility for alcohol intoxicati on and potential suicidal intentions bupropion: sexual side effects and stoppedvra ylar: side effectswas diagnosed with ADHD Fatigue 02940336 R53.83 ongoingana negative 02/2022; kylah and anticcp: negativees r crp again normal Tobacco user 498560036 F 17.200 quit now Osteoarthr itis of right hip joint 1092393447 26916 M16.11 xr 03/10 will follow Arthritis of right sacroiliac joint 4516579990 568508 M13.88 cr 03/10 notedrheum atology referralha d elevated aldolase level.ongo ing fatigueCK level normalsche duled not until january 2025 Chronic pe lvic pain of female 761364470 R10.2 D25.1 ongoing mild for long time.fu with gynecology Pelvic ultrasound with fibroid uterusFoll owed up with gynecologi st Secondary amenorrhea 156 020805 N91.1 urine poc negativefo llow up with female doctnow having menstruato in. pancake professional give her some medsnow resolved Degenerati on of lumbar intervertebral disc 72418431 M51.369 mild ddd on lumbar areamRI 01/10: mild disc bulge wtih facet arthritis, mild neuro foraminal narrowing noted at one level in low backpain mgmt referral done and going to see 04/14/25sedian n pain management completed physical therapy with not much relief [id number] Kirit Hankins MD [facility] [address] [facility] [address] [place] [address] 04/22/2025 14:31:34 04/22/2025 15:09:01 Projectile vomiting 0551827 R11.12 97505021 resolving now.she has started on drinking again.abd exam is benign.inga e nausea still present,wi ll give zofran odt Degenerati on of lumbar intervertebral disc 88466831 M51.369 mild ddd on lumbar areamRI 01/10: mild disc bulge wtih facet arthritis, mild neuro foraminal narrowing noted at one level in low backpain mgmt referral done and going to see 04/14/25nj [facility] pain management completed physical therapy with not much reliefplan nataly to get her to injection soon Attention deficit hyperactivity disorder 407764728 F90.9 started on concerta by dion galvez 09/2024diag nosed with adhd.she needs to see psychiatrewelina littlejohn to make an appointmen t with them.will continue concertra in the interim.ga teway referral and going to see a psych on concer ta causing side effects.wi ll switch to adderall. she has tried this before currently on adderallin creased to 30 mg dailynow seeing psychiatrewelina galvez Chronic low back pain 27 7092166 M54.50 xray done at chiropract orreceived the [...] le.other x-rays unremarkab le as well. Fibromyositis 54520733 M 79.7 ongoing muscle pain.eleva libertad aldolase [...] . will send refill out Mood disorder 85497806 F 41 mood up and down. will refer to psychiatrewelina martinez add vraylar for depression which had some side effects and she stoppedwil l add cymbalta for this.possi ble focus problem and will refer to behavioral health.bambi gnosed with ADHD and was started on concertaad d clonazpem prnadded bupropion: however caused crying episodeshe has now seeing psychiatrewelina galvez Disorder o f iron metabolism 80052267 E83.10 TIBC low, iron level and saturation [...] heterozygo usrecheck level with improvemen t Alcoholism 1222537 F10.2 0 drinks frequently mostly binge drinkingco unseled on drinkingdi scussed different medication s.start naltrexone which she does not takeadvise d to contact alcohol rehab center for vivitrolsh e states she has slowed downwent to rehab 08/2024 to 09[place]2024 [facility], [place] sporadical ly.continu es on AAadd acamprosat e which she has not received yetshe went to see psychiatir st and going to receive Anxiety 59892129 F41.9 on clonazepam for since 18started having panic attacks blackoutss chooling: did wellboyfri end suddenly, lot of stress due to familial stresstrie d different antidepres sants, zoloft, bupropion, lamictal in the past which did not helpdec 2021 admitted to psych facility for alcohol intoxicati on and potential suicidal intentions bupropion: sexual side effects and stoppedvra ylar: side effectswas diagnosed with ADHD Fatigue 20700356 R53.83 ongoingana negative 02/2022; kylah and anticcp: negativees r crp again normal Tobacco user 597015710 F 17.200 quit now Osteoarthr itis of right hip joint 7291325077 65186 M16.11 xr 03/10 will follow Arthritis of right sacroiliac joint 2034719715 600878 M13.88 cr 03/10 notedrheum atology referralha d elevated aldolase level.ongo ing fatigueCK level normalsche duled not until january 2025 Chronic pe lvic pain of female 954916013 R10.2 D25.1 ongoing mild for long time.fu with gynecology Pelvic ultrasound with fibroid uterusFoll owed up with gynecologi st Secondary amenorrhea 156 394818 N91.1 urine poc negativefo llow up with female doctnow having menstruato in. pancake professional give her some medsnow resolved Dry eyes 386688149 H04.1 23 [id number] Health Concerns Section Related Observation LastModified by Organization Detai ls LastModified Time None Recorded Concern Status LastModified by Organization Details LastModified Time None Recorded Payers Encounter Date Sequence Insurance Name Policy Number Policy Odell Covered Member ID Odell Member ID Guarantor Name 04/22/2025 1 [facility] - DOS ON OR AFTER 21 (MEDICAID REPLACEMENT - HMO) Kari Song [id number] Kari Song Notes Date Note Type Note Provider Name and Address Organization Details Recorded Time 04/22/2025 text/html ROS as noted in the HPI Pt here for med refill. Pt c/o vomiting on Saturday while eating at [employer]. Since Saturday, she has been feeling nauseous, gassy, bloated, and having dark stool. test negative. No chest pain, shortness of breath. she had relapsed on her alcohol and is now seeing psychiatirst and addiciton. she is goign to start vivitrol soon. Kirit Hankins MD [address] [facility] [address], [place], [address], [facility] 04/22/2025 17:23:35 OBGyn Episode No OBEpisode recorded.
--- OUTSIDE RECORDS SUMMARY | 2025-07-06 17:38 | XMS_ITS | Continuity of Care Document ---
Author Organization [place] - [facility], [facility] Address [address] [facility] [address] [place] [address] Assessment No assessment recorded. Plan of Treatment Reminders Order Date Submit Date Provider Last Modified By Organization Details Last Modified Time Details Appointments Follow Up 15 2024 02:45P M Kirit Hankins MD Not available Not available Not available Lab None recorded. Referral None recorded. Procedures None recorded. Surgeries None recorded. Imaging None recorded. Medication Orders naltrexon e 50 mg tablet 2024 [id number], [address] [place], [place], [id number], 05/20/2025 16:54:52 trazodone 50 mg tablet 2024 [facility] #[id number], [address] [place], [id number], 05/20/2025 16:52:28 Adderall XR 30 mg capsule,e xtended release 2024 [facility] #[id number], [address] [place], [id number], 05/20/2025 16:52:23 clonazepa m 0.5 mg tablet 2024 025 [facility][id number], [address] [place], [id number], 05/20/2025 16:52:21 Patient TargetsNo targets recorded. Patient Instructions Encounter Date Encounter Id Patient Instructions Last Modified By Organization Details Last Modified Time 05/20/2025 [id number] Quitting Tobacco : Care Instructions [email or web address] Not available 05/20/2025 16:52:14 dry eyes: care instructions Not available 05/20/2025 16:52:14 chronic pelvic pain: care instructions [email or web address] Not available 05/20/2025 16:52:14 attention defici t hyperactivity disorder (ADHD) in adults: care instructions Not available 05/20/2025 16:52:14 learning about mood disorders [email or web address] Not available 05/20/2025 16:52:14 learning about mood disorders Not available 05/20/2025 16:52:14 I spent a total of __32____ minutes (excluding separately reportable procedure time ) in care of this patient. [email or web address] Not available 05/20/2025 16:55:37 Reason for Referral None Reported. Problems Name Problem SNOMED Code Status Onset Date Resolution Date Notes Provider Name and Address Organization Details Recorded Time Altered bowel function 86124810 Completed 06/12/2023 Altered bowel habits Kirti Hankins MD [address] [facility] [address] [facility] [address], [place], [address] , [facility] 3 12:35:47 Acute bronchit is 97730738 Completed 06/12/2023 Acute bronchit is Kirit Hankins MD [address] [facility] [address] [facility] [address], [place], [address] , [facility] 3 12:32:32 Late effect of fracture of skull AND/OR face bones 03831325 Completed 06/12/2023 Late effect of fracture of skull AND/OR face bones Kirit Hankins MD [address] [facility] [address] [facility] [address], [place], [address] , [facility] 12:35:09 Depressi ve disorder 47932652 Completed 06/12/2023 Depresse d Depres sive disorder Davida Reyes [facility] 4 10:32:00 Toxicode ndron radicans poisonin g 19622414 Completed 06/12/2023 Poison emily poisonin g Kirit Hankins MD [address], [place], [address], [facility] 3 12:35:26 Acute mastitis 01677448 Completed 06/12/2023 Acute mastitis Kirit Hankins MD [address], [place], [address], [facility] 3 12:32:34 Fatigue 11697409 Active Fatigue Kirit Hankins MD [address], [place], [address], [facility] 5 16:51:45 Acute rhinosin usitis 392986606 Completed 06/12/2023 Acute rhinosin usitis Kirit Hankins MD [address], [place], [address], [facility] 3 12:32:36 Pleuriti c pain 7297932 Completed 06/12/2023 Pleuriti c pain Kirit Hankins MD [address], [place], [address], [facility] 3 12:35:32 Anxiety 75322520 Active 2014 Anxiety Kirit Hankins MD [address], [place], [address], [facility] 5 16:50:20 Urinary tract infectio us disease 72201230 Completed 201406/12/2023 Urinary tract infectio us disease Kirit Hankins MD [address], [place], [address], [facility] 4 12:56:26 Tobacco user 771449456 Active 2014 Tobacco use Kirit Hankins MD [address] [facility] [address] [facility] [address], [place], [address], [facility] 5 16:50:20 Alcoholi sm 6033307 Active 2014 Alcoholi sm Kirit Hankins MD [address], [place], [address], [facility] 5 16:55:01 Panic attack 925958949 Completed 201506/12/2023 Panic attack Kirit Hankins MD [address] [facility] [address] [facility] [address], [place], [address], [facility] 3 12:35:39 Gastriti s 6398212 Completed 201706/12/2023 Gastriti s Kirit Hankins MD [address] [facility] [address] [facility] [address], [place], [address], [facility] 3 12:35:41 Fibromyo sitis 42833754 Active 2022 Kirit Hankins MD [address] [facility] [address], [place], [address], [facility] 5 16:50:20 Osteoart hritis of right hip joint 75332535501 9107 Active 2022 iKrit Hankins MD [address] [facility] [address] [facility] [address], [place], [address], [facility] 5 16:50:20 Arthriti s of right sacroili ac joint 49002887772 84942 Active 2022 Kirit Hankins MD [address] [facility] [address], [place], [address], [facility] 5 16:50:20 Disorder of iron metaboli sm 12471677 Active 2022 Kirit Hankins MD [address] [facility] [address], [place], [address], [facility] 5 16:50:20 Chronic pelvic pain of female 025105729 Active 2023 Kirit Hankins MD [address], [place], [address], [facility] 5 16:50:21 Acute upper respirat ory infectio n 60590684 Completed 202306/16/2024 Kirit Hankins MD [address], [place], [address], [facility] 4 12:56:13 Recurren t urinary tract infectio n 603395904 Completed 202306/16/2024 Kirit Hankins MD [address] [facility] [address], [place], [address], [facility] 4 12:56:20 Urinary tract infectio us disease 26902297 Completed 202306/16/2024 Urinary tract infectio us disease Kirit Hankins MD [address] [facility] [address], [place], [address], [facility] 4 12:56:25 Depressi ve disorder 98516641 Active 2023 Depresse d Depres sive disorder Davida Eric [facility] 4 10:32:00 Mood disorder 90652899 Active 2023 Kirit Hankins MD [address] [facility] [address], [place], [address], [facility] 5 16:50:20 Chronic low back pain 874740922 Active 2023 Kirit Hankins MD [address] [facility] [address], [place], [address], [facility] 5 16:50:20 Secondar y amenorrh ea 012920472 Active 2023 Kirit Hankins MD [address], [place], [address], [facility] 5 16:50:21 Degenera tion of lumbar interver tebral disc 20595420 Active 2023 Kirit Hankins MD [address], [place], [address], [facility] 5 16:50:20 Attentio n deficit hyperact ivity disorder 414018859 Active 2024 Kirit Hankins MD [address], [place], [address], [facility] 5 16:50:20 Projecti le vomiting 6624673 Active 2024 Kirit Hankins MD [address], [place], [address], [facility] 5 14:54:59 Dry eyes 299700653 Active 2024 Kirit Hankins MD [address], [place], [address], [facility] 5 15:03:44 Chronic insomnia 287862339 Active 2024 Kirit Hankins MD [address], [place], [address], [facility] 5 16:50:58 Problem Notes None recorded. [...] 5 160.02 cm 98.2 [degF] 20 kg/m2 87697.9 4 g 67 /min 18 /min 97 % 97 % 104/70 mm[Hg] Davida Reyes [facility] 5 16:38:15 Social History None recorded. Functional Status None [...] Recorded Time [facility] 9 [facility] 11:43:57 MMR 3 completed [facility] [facility]12[facility]2023 11:43:57 COVID-19, mRNA, LNP-S, PF, 30 mcg/0.3 mL dose, gali-sucrose 2 completed [facility] [facility]/12/2023 11:43:57 DTP 0 completed [place] [facility] 06/12/2023 11:43:57 DTP 8 completed [place] [facility] 06/12/2023 11:43:57 DTP 8 completed [place] [facility] [facility] 06/12/2023 11:43:57 DTP 3 completed [place] [facility] [facility] 06/12/2023 11:43:57 DTP 8 completed [place] [facility] [facility] 06/12/2023 11:43:57 OPV, trivalent 0 completed [facility] 06/12/2023 11:43:57 OPV, trivalent 8 completed [place] null, [facility] 06/12/2023 11:43:57 OPV, trivalent 8 completed [place] null, [facility] 06/12/2023 11:43:57 OPV, trivalent 3 completed [place] null, [facility] 06/12/2023 11:43:57 Td (adult), 2 Lf tetanus toxoid, preservative free, adsorbed 3 completed [place] null, [facility] 06/12/2023 11:43:57 Hep B, adolescent or pediatric 8 completed [place] null, [facility] 06/12/2023 11:43:57 Hep B, adolescent or pediatric 7 completed [place] null, [facility] 06/12/2023 11:43:57 Hep B, adolescent or pediatric 7 completed [place] null, [facility] 06/12/2023 11:43:57 Past Encounters Encounter ID Performer Location Encounter Start Date Encounter Closed Date Diagnosis/Indication Diagnosis SNOMED-CT Code Diagnosis ICD10 Code Diagnosis IMO Codes Diagnosis Note [id number] Kirit Hankins MD [facility] [address] [facility] [address] [place] [address] 04/22/2025 14:31:34 04/22/2025 15:09:01 Projectile vomiting 5104750 R11.12 06762454 resolving now.she has started on drinking again.abd exam is benign.inga e nausea still present,wi ll give zofran odt Degenerati on of lumbar intervertebral disc 44352339 M51.369 mild ddd on lumbar areamRI 01/10: mild disc bulge wtih facet arthritis, mild neuro foraminal narrowing noted at one level in low backpain mgmt referral done and going to see 04/14/25see n pain management completed physical therapy with not much reliefplan nataly to get her to injection soon Attention deficit hyperactivity disorder 283966712 F90.9 started on concerta by dion galvez [...] psychiatrewelina galvez Chronic low back pain 27 4151746 M54.50 xray done at chiropract orreceived the [...] le.other x-rays unremarkab le as well. 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 will send refill out Mood disorder 27496919 F 39 mood up and down. 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 sporadical [place].continu es on AAadd acamprosat e which she has not received yetshe went to see psychiatir st and going to receive Anxiety 63511356 F41.9 on clonazepam for since 18started having panic attacks blackoutss chooling: did wellboyfri end suddenly, lot of stress due to familial stresstrie d different antidepres sants, zoloft, bupropion, lamictal in the past which did not helpdec 2021 admitted to psych facility for alcohol intoxicati on and potential suicidal intentions bupropion: sexual side effects and stoppedvra ylar: side effectswas diagnosed with ADHD Fatigue 44323142 R53.83 ongoingana negative 02/2022; kylah and anticcp: negativees r crp again normal Tobacco user 085209662 F 17.200 quit now Osteoarthr itis of right hip joint 5231406563 86747 M16.11 xr 03/10 will follow Arthritis of right sacroiliac joint 5094241029 636626 M13.88 cr 03/10 notedrheum atology referralha d elevated aldolase level.ongo ing fatigueCK level normalsche duled not until january 2025 Chronic pe lvic pain of female 281946026 R10.2 D25.1 ongoing mild for long time.fu with gynecology Pelvic ultrasound with fibroid uterusFoll owed up with gynecologi st Secondary amenorrhea 156 007415 N91.1 urine poc negativefo llow up with female doctnow having menstruato in. typing teacher give her some medsnow resolved Dry eyes 578133998 H04.1 23 7971648 [id number] Kirit Hankins MD [facility] [address] [place] [address] 05/20/2025 16:32:49 05/20/2025 17:00:07 Degeneration of lumbar intervertebral disc 33875958 M51.369 mild ddd on lumbar areamRI 01/10: mild disc bulge wtih facet arthritis, mild neuro foraminal narrowing noted at one level in low backpain mgmt referral done and going to see 04/14/25see n pain management completed physical therapy with not much reliefs/p injection 05/18/2025: with improvemen t Attention deficit hyperactivity disorder 848362479 F90.9 started on concerta by dion galvez [...] dion galvez Chronic low back pain 27 8052691 M54.50 xray done at chiropract orreceived the [...] le.other x-rays unremarkab le as well. Fibromyositis 89565981 M 79.7 ongoing muscle pain.eleva libertad aldolase in the past. recheck normal, ck normaldid not go to rheumatolo gistwill add flexeril prndiscuss ed cymbalta with the patient but she did not tryfu with pain management added gabpentin scheduled but she takes it as neededssee ing pain managmenet nowalso seen rheumatolo gist.added cyclobenza ivy and diclofenac she lost diclofenac .sent refill Mood disorder 40587548 F 41 mood up and down. will refer to dion martinez add vraylar for depression which had some side effects and she stoppedwil l add cymbalta for this.possi ble focus problem and will refer to behavioral health.bambi gnosed with ADHD and was started on concertaad d clonazpem prnadded bupropion: however caused crying episodeshe has now seeing psychiatrewelina galvez Disorder o f iron metabolism 95028949 E83.10 TIBC low, iron level and saturation [...] heterozygo usrecheck level with improvemen t Alcoholism 2513120 F10.2 0 drinks frequently mostly binge drinkingco unseled on drinkingdi scussed different medication s.start naltrexone which she does not takeadvise d to contact alcohol rehab center for vivitrolsh e states she has slowed downwent to rehab 08/2024 to 09/[address] [facility], [place] sporadical [place].continu es on AAadd acamprosat e which she has not received yetshe went to see psychiatir and going to receivelas t drink: she does not knowshe is not able to go get vivitrolwi ll start on naltrexone Anxiety 76312853 F41.9 on clonazepam for since 20started having panic attacks blackoutss chooling: did wellboyfri end suddenly, lot of stress due to familial stresstrie d different antidepres sants, zoloft, bupropion, lamictal in the past which did not helpdec 2021 admitted to psych facility for alcohol intoxicati on and potential suicidal intentions bupropion: sexual side effects and stoppedvra ylar: side effectswas diagnosed with ADHD Fatigue 78029807 R53.83 ongoingana negative 02/2022; kylah and anti-ccp: negativees r crp again normal Tobacco user 488958891 F 17.200 quit now Osteoarthr itis of right hip joint 8055568455 72167 M16.11 xr 03/10 will follow Arthritis of right sacroiliac joint 1446103562 568533 M13.88 cr 03/10 notedrheum atology referralha d elevated aldolase level.ongo ing fatigueCK level normalsche duled not until january 2025 Chronic pe lvic pain of female 084427343 D25.1 ongoing mild for long time.fu with gynecology Pelvic ultrasound with fibroid uterusFoll owed up with gynecologi st Secondary amenorrhea 156 664566 N91.1 urine poc negativefo llow up with female doctnow having menstruato in. typing teacher give her some medsnow resolved Dry eyes 328102008 H04.1 23 1218139 refresh plus Chronic insomnia 7423150 04 F51.04 694790 on trazodone prntreid int eh past and worked well. Health Concerns Section Related Observation LastModified by Organization Detai ls LastModified Time None Recorded Concern Status LastModified by Organization Details LastModified Time None Recorded Payers Encounter Date Sequence Insurance Name Policy Number Policy Odell Covered Member ID Odell Member ID Guarantor Name 05/20/2025 1 [facility] ON OR AFTER 02/16/21 (MEDICAID REPLACEMENT - HMO) Kari Song [id number] Kari Song Notes Date Note Type Note Provider Name and Address Organization Details Recorded Time 05/20/2025 text/html ROS as noted in the HPI Pt here for follow up. Pt received injection in back on 05/18/2025. Pain improved in 2 hours and was completely pain free next morning. 0/10. No chest pain, shortness of breath, nausea or vomiting. Kirit Hankins MD [address], [place], [address], [facility] 05/20/2025 16:57:38 OBGyn Episode No OBEpisode recorded.
--- OUTSIDE RECORDS SUMMARY | 2025-07-06 17:38 | XMS_ITS | Clinical Summary ---
Author Organization [facility] Address [address] [place] [address] Care Team Providers Care Lead Nuclear Medicine Technologist Name Role Phone Unknown, Provider Primary Care Provider Unavaila ble Source Comments [facility],non-owned Affiliates and Associated Physician Practices is amultiple site organization consisting of ambulatory clinics and hospital sitesin [place], [place], [place] and [place]. This disclosure is being madepursuant to the Care Everywhere program and may not contain all information available regarding this patient. Last updated 18.[facility] Allergies No known active allergies Medications * Be aware that medications may not be up to date on this document. Alwaysverify current medications with the patient. clonazePAM (KlonoPIN) 0.5 MG tablet Take 1 (one) tablet by mouth once daily as needed 07/29/20 23 Active ketoconazole (Nizoral) 2 % creamIndications:O ther seborrheic dermatitis,Other rosacea Apply to affected area on the face twice daily. 30 days supply. 60 g 5 08/27/19 24 Active pimecrolimus (Elidel) 1 % creamIndications:O ther specified dermatitis Apply to affected area on the face BID. 30 day supply. 30 g 2 09/04/19 24 Active naltrexone (Revia) 50 MG tablet Active traZODone (Desyrel) 50 MG tablet Active diclofenac sodium EC (Voltaren) 75 MG tabletIndications: Other specified arthritis, other site,Low back pain without sciatica, unspecified back pain laterality, unspecified chronicity,Osteoar thritis of both hips, unspecified osteoarthritis type Take 1 (one) tablet by mouth 2 times daily for 90 days 180 tablet 01/21/20 25 Active cyclobenzaprine (Flexeril) 10 MG tabletIndications: Low back pain without sciatica, unspecified back pain laterality, unspecified chronicity Take 0.5 (one-half) tablet by mouth at bedtime 45 tablet 1 02/12/20 25 025 Active buPROPion XL 24hr (Wellbutrin-XL) 150 MG tablet Take 1 (one) tablet by mouth every morning 12/10/19 25 Active bisacodyl (Dulcolax) 10 MG suppository Insert 1 (one) suppository into the rectum once daily as needed for Constipation Active artificial tears (SOOTHE) ophthalmic solution Instill 1 (one) drop into both eyes as directed 09/22/19 25 Active amphetamine-dextro amphetamine XR 24hr (Adderall XR) 20 MG capsule Take 1 (one) capsule by mouth once daily Active acamprosate calcium EC (Campral) 333 MG tablet Take 2 (two) tablets by mouth 3 times daily Active Vraylar 1.5 MG capsule Take 1 (one) capsule by mouth once daily 02/13/20 24 Active cephalexin (Keflex) 500 MG capsule Take 1 (one) capsule by mouth 2 times daily 07/11/20 24 Active DULoxetine (Cymbalta) 20 MG capsule Take 1 (one) capsule by mouth once daily 07/09/20 24 Active chlordiazePOXIDE (Librium) 25 MG capsule Take 1 (one) capsule by mouth as directed 09/19/19 25 Active gabapentin (Neurontin) 300 MG capsule Take 1 (one) capsule by mouth 3 times daily 02/04/20 25 Active cyclobenzaprine (Flexeril) 5 MG tablet Take 1 (one) tablet by mouth 3 times daily as needed Active Linzess 290 MCG capsule Take 1 (one) capsule by mouth once daily 03/14/20 25 Active amphetamine-dextro amphetamine XR 24hr (Adderall XR) 30 MG capsule Take 1 (one) capsule by mouth once daily 03/24/20 25 Active Active Problems Problem Noted Date Diagnosed Date Attention deficit hyperactivity disorder 025 Degeneration of lumbar intervertebral disc 07/08 Secondary amenorrhea 06/16/2024 Chronic low back pain 06/16/2024 Episodic mood disorder 02/13/2024 Depressive disorder 02/13/2024 Overview (03/22/2025): Depressed Depressive disorder Urinary tract infectious disease 11/19/2023 Overview (03/26/2025): Urinary tract infectious disease Recurrent urinary tract infection 11/15/2023 Overview (03/22/2025): Urinary tract infectious disease Chronic pelvic pain in female 11/15/2023 Resolved Problems Problem Noted Date Diagnosed Date Resolved Date Acute upper respiratory infection 11/15/2023 04/05/2025 Immunizations Immunization Administration Dates Next Due DTP 03/30/1993, 0,07/08/1988,1987,02/09/1988 HEP B VACCINE, PED/ADOL 11/01/1997,07/25/1997, MMR 03/30/1993,11/19/1988 POLIO OPV 03/30/1993, 0,03/30/1988,1987 Td (Adult), 2 Lf Tetanus Tox oid, Adsorbed, Pf 11/24/2002 Social History Tobacco Use Types Packs/Day Years Used Date Smoking Tobacco: Never Smokeless Tobacco: Former Tobacco Cessation:Counseling Given: Not Answered Comments Unknown Sex and Gender Information Value Date Recorded Sex Assigned at Not on file 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 Gender Identity Not on file Sexual Orientation Not on file Last Filed Vital Signs Vital Sign Reading Time Taken Comments Blood Pressure 112/71 01/20/2025 8:38 AM CDT Pulse 74 01/20/2025 8:38 AM CDT Temperature 36.4 C (97.5 F) 01/20/2025 8:38 AM CDT Respiratory Rate - - Oxygen Saturation - - Inhaled Oxygen Concentration - - Weight 51.5 kg (113 lb 9.6 oz) 01/20/2025 8:38 A M CDT Height 160 cm (5' 3) 01/20/2025 8:38 AM CDT Body Mass Index 20.12 01/20/2025 8:38 AM CDT Plan of Treatment Health Maintenance Due Date Last Done Comments HIV SCREENING 2002 DTAP/TDAP/TD VACCINES (6 - Tdap) 11/25/2002 11/24/2002, 03/30/1993, 01/21/1990, Additional history exists Cervical Cancer Screening 2008 PAP SMEAR 2008 HPV VACCINE (1 - 3-dose SCDM series) 2014 PAP with HPV 2017 DEPRESSION SCREENING 08/19/2024 COVID-19 VACCINE (2 - season) 2025 11/05/2021 INFLUENZA VACCINE (#1) 2025 ZOSTER VACCINE (1 of 2) 2037 HEPATITIS B VACCINE Completed 11/01/1997, 07/25/1997, 06/21/1997 HEPATITIS C SCREENING Completed 01/20/2025 HIB VACCINE Aged Out No longer eligi ble based on patient's age to complete this topic MENINGOCOCCAL (Group B) VACCINE SHARED DECISION-MAKING Aged Out No longer eligible based on patient's age to complete this topic MENINGOCOCCAL GROUPS A/C/Y/W VACCINE Aged Out No longer eligible based on patient's age to complete this topic PNEUMOCOCCAL VACCINE Aged Out No long er eligible based on patient's age to complete this topic Procedures Procedure Name Priority Date/Time Associated Diagnosis Comments HEPATITIS C ANTIBODY Routine 01/20/2025 10:16 AM CDT Other specified arthritis, other site Low back pain without sciatica, unspecified back pain laterality, unspecified chronicity Osteoarthritis of both hips, unspecified osteoarthritis type from Last 3 Months or Most Recently Relevant to Health Maintenance Results * HEPATITIS C ANTIBODY (01/20/2025 10:16 AM CDT) Hepatitis C Antibody Non-react luisa Non-reac tive 01/20/2025 11:55 AM CDT [facility] Comment:Hepatitis C Antibody screen indicates no serologic evidence of past or current infection with Hepatitis C Virus. Patients with unexplained liver disease who are immunocompromised or suspected of having acute Hepatitis C infection may benefit from Nucleic Acid Test (MIRNA) for Hepatitis C Viral RNA to confirm Hepatitis C status. Blood BLOOD SPECIMEN / Unknown Lab Venipuncture / Unknown 01/20/2025 10:16 AM CDT 01/20/2025 11:20 AM CDT us Sydni Guillermo MD LAB - CHEMISTRY ORDERA BLES Final Result [facility] [address] [place] [address], [facility] [place] [phone] from Last 3 Months or Most Recently Relevant to Health Maintenance Insurance [facility] Care Teams Lead Nuclear Medicine Technologist Relationship Specialty Start Date End Date Unknown, Provider PCP - General 08/27/23
--- OUTSIDE RECORDS SUMMARY | 2025-07-06 17:38 | XMS_ITS | Encounter Summary ---
Author Organization [facility] Address [address] [place] [address] Care Team Providers Care Microcomputer Support Specialist Name Role Phone Unknown, Provider Primary Care Provider Unavaila ble Reason for Referral * Consultation (Routine) - Closed Specialty Diagnoses / Procedures Referred By Contac t Referred To Contact Rheumatology Diagnoses Other specified arthritis, other site Kirit Hankins MD [address] [place] [address] Phone: tel: fax: [facility] - Rheumatology [address] [place] [phone] Phone: tel: fax: Referral ID Status Reason Start Date Expiration Date V isits Requested Visits Authorized [id number] Closed Specialty Services Required 07/02/2024 07/02/2025 1 1 ETRICIAN/GYNECOLOGIST Encounter Details Date Type Department Care Team (Late [facility]) Description 07/02/2024 Transcribe Orders [facility] - Centralized Scheduling [facility] [place] [id number] Kirit Hankins MD [address] [place] [address] Other specified arthritis, other site Social History Tobacco Use Types Packs/Day Years Used Date Smoking Tobacco: Never Smokeless Tobacco: Former Comments Unknown Sex and Gender Information Value Date Recorded Sex Assigned at Not on file Legal Sex Female 6:45 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 Gender Identity Not on file Sexual Orientation Not on file documented as of this encounter Plan of Treatment Scheduled Referrals Name Type Priority Associated Diagnoses Order Schedule AMB REFERRAL TO RHEUMATOLOGY Outpatient Referral Routine Other specified arthritis, other site 1 Occurrences starting 07/02/2024 until 07/02/2025 documented as of this encounter Visit Diagnoses Diagnosis Other specified arthritis, other site- Primary documented in this encounter Care Teams Microcomputer Support Specialist Relationship Specialty Start Date End Date Unknown, Provider PCP - General 08/27/23 documented as of this encounter
--- OUTSIDE RECORDS SUMMARY | 2025-07-06 17:38 | XMS_ITS | Continuity of Care Document ---
Author Organization [place] - [facility], [facility] Address [address] [place] [address] Assessment No assessment recorded. Plan of Treatment Reminders Order Date Submit Date Provider Last Modified By Organization Details Last Modified Time Details Appointments Follow Up 15 2024 02:45P M Kirit Hankins MD Not available Not available Not available Lab gamma-glu tamyl transfera se (ggt), serum 2024 025 [employer] [facility], [address], [place], [address], 06/30/2025 04:05:06 CBC w/ auto diff 2024 025 [employer] [facility], [address], [place], [address], 06/30/2025 04:05:05 vitamin D, 25-hydrox y, total, serum 2024 025 [employer] [facility], [address], [address], [place], [address], 06/30/2025 04:05:06 iron + TIBC + ferritin, serum 2024 025 [employer] [facility], [address], [address], [place], [address], 06/30/2025 04:05:06 vitamin B12 + folate, serum or blood [address] [facility], [address], [place], [address], 06/30/2025 04:05:06 CMP, serum or plasma 2024 [address] [facility], [address], [place], [address], 06/30/2025 04:05:06 TSH, serum or plasma 2024 [facility], [address], [place], [address], 06/30/2025 04:05:06 urinalysi s complete, reflex culture 2024 [facility], [address], [place], [address], 06/30/2025 04:05:07 erythrocy te sedimenta tion rate by westergre n method 2024 [facility], [address], [place], [address], 06/30/2025 04:05:06 C-reactiv e protein, quantitat luisa, serum or plasma 2024 025 [facility], [address], [place], [address], 06/30/2025 04:05:07 Referral None recorded. Procedures None recorded. Surgeries None recorded. Imaging None recorded. Medication Orders naltrexon e 50 mg tablet 2024 [id number], [address], [place], [place], [id number], 06/23/2025 11:35:55 trazodone 50 mg tablet 2024 [facility] #[id number], [address], [place], [place], [id number], 06/23/2025 11:35:54 cyclobenz aprine 10 mg tablet 2024 [facility] #[id number], [address], [place], [place], [id number], 06/23/2025 11:35:54 diclofena c sodium 75 mg tablet,de layed release 2024 [facility] #[id number], [address], [place], [place], [id number], 06/23/2025 11:35:53 Adderall XR 30 mg capsule,e xtended release 2024 [facility] #[id number], [address], [place], [place], [id number], 06/23/2025 11:35:51 clonazepa m 0.5 mg tablet 2024 [facility] #[id number], [address], [place], [place], [id number], 06/23/2025 11:35:52 Patient TargetsNo targets recorded. Patient Instructions Encounter Date Encounter Id Patient Instructions Last Modified By Organization Details Last Modified Time 06/23/2025 [id number] Quitting Tobacco : Care Instructions [email or web address] Not available 06/23/2025 11:35:37 dry eyes: care instructions [email or web address] Not available 06/23/2025 11:35:36 chronic pelvic pain: care instructions [email or web address] Not available 06/23/2025 11:35:37 attention defici t hyperactivity disorder (ADHD) in adults: care instructions [email or web address] Not available 06/23/2025 11:35:37 learning about mood disorders [email or web address] Not available 06/23/2025 11:35:37 learning about mood disorders [email or web address] Not available 06/23/2025 11:35:36 I spent a total of __31____ minutes (excluding separately reportable procedure time ) in care of this patient. Not available 06/23/2025 11:35:47 Reason for Referral None Reported. Problems Name Problem SNOMED Code Status Onset Date Resolution Date Notes Provider Name and Address Organization Details Recorded Time Altered bowel function 40572340 Completed 06/12/2023 Altered bowel habits Kirit Hankins MD [address], [place], [address], [facility] 3 12:35:47 Acute bronchit is 56283127 Completed 06/12/2023 Acute bronchit is Kirit Hankins MD [address], [place], [address], [facility] 3 12:32:32 Late effect of fracture of skull AND/OR face bones 09644127 Completed 06/12/2023 Late effect of fracture of skull AND/OR face bones Kirit Hankins MD [address], [place], [address], [facility] 3 12:35:09 Depressi ve disorder 20851342 Completed 06/12/2023 Depresse d Depres sive disorder Davida Reyes [facility] 4 10:32:00 Toxicode ndron radicans poisonin g 09912797 Completed 06/12/2023 Poison emily poisonin g Kirit Hankins MD [address], [place], [address], [facility] 3 12:35:26 Acute mastitis 28758918 Completed 06/12/2023 Acute mastitis Kirit Hankins MD [address], [place], [address], [facility] 3 12:32:34 Fatigue 88051331 Active Fatigue Kirit Hankins MD [address], [place], [address], [facility] 5 16:51:45 Acute rhinosin usitis 619497810 Completed 06/12/2023 Acute rhinosin usitis Kirit Hankins MD [address], [place], [address], [facility] 3 12:32:36 Pleuriti c pain 7104777 Completed 06/12/2023 Pleuriti c pain Kirit Hankins MD [address], [place], [address], [facility] 3 12:35:32 Anxiety 94750412 Active 2014 Anxiety MD Sophie Estrada[address], [place], [address], [facility] 5 16:50:20 Urinary tract infectio us disease 92076777 Completed 201406/12/2023 Urinary tract infectio us disease Kirit Hankins MD [address], [place], [address], [facility] 4 12:56:26 Tobacco user 459619160 Active 2014 Tobacco use Kirit Hankins MD [address], [place], [address], [facility] 5 16:50:20 Alcoholi sm 8592248 Active 2014 Alcoholi sm Kirit Hankins MD [address], [place], [address], [facility] 5 16:55:01 Panic attack 423449510 Completed 201506/12/2023 Panic attack Kirit Hankins MD [address], [place], [address], [facility] 3 12:35:39 Gastriti s 3789560 Completed 201706/12/2023 Gastriti s Kirit Hankins MD [address], [place], [address], [facility] 3 12:35:41 Fibromyo sitis 55070518 Active 2022 Kirit Hankins MD [address], [place], [address], [facility] 5 16:50:20 Osteoart hritis of right hip joint 21498420257 9107 Active 2022 Kirit Hankins MD [address], [place], [address], [facility] 5 16:50:20 Arthriti s of right sacroili ac joint 53265322077 38512 Active 2022 Kriit Hankins MD [address], [place], [address], [facility] 5 16:50:20 Disorder of iron metaboli 52720356 Active 2022 Kirit Hankins MD [address], [place], [address], [facility] 5 16:50:20 Chronic pelvic pain of female 504315921 Active 2023 Kirit Hankins MD [address], [place], [address], [facility] 5 16:50:21 Acute upper respirat ory infectio n 70936700 Completed 202306/16/2024 Kirit Hankins MD [address], [place], [address], [facility] 4 12:56:13 Recurren t urinary tract infectio n 685081140 Completed 202306/16/2024 Kirit Hankins MD [address], [place], [address], [facility] 4 12:56:20 Urinary tract infectio us disease 03773005 Completed 202306/16/2024 Urinary tract infectio us disease Kirit Hankins MD [address], [place], [address], [facility] 4 12:56:25 Depressi ve disorder 72978259 Active 2023 Depresse d Depres sive disorder Davida [facility], [facility] 4 10:32:00 Mood disorder 50765580 Active 2023 Kirit Hankins MD [address], [place], [address], [facility] 5 16:50:20 Chronic low back pain 863827887 Active 2023 Kirit Hankins MD [address], [place], [address], [facility] 5 16:50:20 Secondar y amenorrh ea 952743173 Active 2023 Kirit Hankins MD [address] [facility] [address], [place], [address], [facility] 5 16:50:21 Degenera tion of lumbar interver tebral disc 94960832 Active 2023 Kirit Hankins MD [address] [facility] [address], [place], [address], [facility] 5 16:50:20 Attentio n deficit hyperact ivity disorder 028083013 Active 2024 Kirit Hankins MD [address], [place], [address], [facility] 5 16:50:20 Projecti le vomiting 1865626 Active 2024 Kirit Hankins MD [address], [place], [address], [facility] 5 14:54:59 Dry eyes 928405426 Active 2024 Kirit Hankins MD [address], [place], [address], [facility] 5 15:03:44 Chronic insomnia 603405332 Active 2024 Kirit Hankins MD [address], [place], [address], [facility] 5 16:50:58 Problem Notes None recorded. [...] 5 160.02 cm 96.8 [degF] 20 kg/m2 35998.9 4 g 74 /min 18 /min 99 % 99 % 104/60 mm[Hg] Davida Reyes [facility] 5 11:08:25 Social History None recorded. [...] Recorded Time MMR 9 completed Key Dall null, [facility] 06/12/2023 11:43:57 MMR 3 completed Key Dall null, [facility] 06/12/2023 11:43:57 COVID-19, mRNA, LNP-S, PF, 30 mcg/0.3 mL dose, gali-sucrose 2 completed Key Dall null, [facility] 06/12/2023 11:43:57 DTP 0 completed Key Dall null, [facility] 06/12/2023 11:43:57 [facility] 11:43:57 [facility] 8 [facility] 11:43:57 DTP 3 completed Key Dall null, [facility] 06/12/2023 11:43:57 DTP 8 [facility] 11:43:57 OPV, trivalent 0 [facility] 11:43:57 OPV, trivalent 8 [facility] 11:43:57 OPV, trivalent 8 completed Key Dall null, [facility] 06/12/2023 11:43:57 OPV, trivalent 3 completed Key Dall null, [facility] 06/12/2023 11:43:57 Td (adult), 2 Lf tetanus toxoid, preservative free, adsorbed 3 [facility] 11:43:57 Hep B, adolescent or pediatric 8 completed Key Dall null, [facility] 06/12/2023 11:43:57 Hep B, adolescent or pediatric 7 completed Key Dall null, [facility] 06/12/2023 11:43:57 Hep B, adolescent or pediatric 7 completed Key Dall null, [facility] 06/12/2023 11:43:57 Past Encounters Encounter ID Performer Location Encounter Start Date Encounter Closed Date Diagnosis/Indication Diagnosis SNOMED-CT Code Diagnosis ICD10 Code Diagnosis IMO Codes Diagnosis Note [id number] Kirit Hankins MD [facility] [address] [place] [address] 06/23/2025 11:02:24 06/23/2025 11:40:48 Attention deficit hyperactivity disorder 230501799 F90.9 started on concerta by dion galvez 09/2024diag nosed with adhd.she needs to see psychiatrewelina littlejohn to make an appointmen t with them.will continue concertra in the interim.logan thomson referral and going to see a psych on concer ta causing side effects.wi ll switch to adderall. she has tried this before currently on adderallin creased to 30 mg dailynow seeing psychiatrewelina Garcia on of lumbar intervertebral disc 59640751 M51.369 mild ddd on lumbar areamRI 01/10: mild disc bulge wtih facet arthritis, mild neuro foraminal narrowing noted at one level in low backpain mgmt referral done and going to see 04/14/25see n pain management completed physical therapy with not much reliefs/p injection 05/18/2025: with improvemen tpain back againshe is planned for left L3,L4, L5 RFA planned Chronic low back pain 27 3028673 M54.50 xray done at chiropract orreceived the [...] le.other x-rays unremarkab le as well. 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 recheck normal, ck normaldid not go to rheumatolo gistwill add flexeril prndiscuss ed cymbalta with the patient but she did not tryfu with pain management added gabpentin scheduled but she takes it as neededssee ing pain managmenet nowalso seen rheumatolo gist.added cyclobenza ivy and diclofenac she lost diclofenac .sent refill Mood disorder 12209438 F 39 mood up and down. 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 TIBC low, iron level and saturation [...] heterozygo usrecheck level with improvemen t Alcoholism 5179011 F10.2 0 drinks frequently mostly binge drinkingco unseled on drinkingdi scussed different medication s.start naltrexone which she does not takeadvise d to contact alcohol rehab center for vivitrolsh e states she has slowed downwent to rehab 08/2024 [place] [facility] sporad[place].continu es on AAadd acamprosat e which she has not received yetshe went to see psychiatir st and going to receivelas t drink: she does not knowshe is not able to go get vivitrolst arted on naltrexone Anxiety 73473677 F41.9 on clonazepam for since 18started having panic attacks blackoutss chooling: did wellboyfri end suddenly, lot of stress due to familial stresstrie d different antidepres sants, zoloft, bupropion, lamictal in the past which did not helpdec 2021 admitted to psych facility for alcohol intoxicati on and potential suicidal intentions bupropion: sexual side effects and stoppedvra ylar: side effectswas diagnosed with ADHD Fatigue 37757087 R53.83 ongoingana negative 02/2022; kylah and anti-ccp: negativees r crp again normal Tobacco user 582264004 F 17.200 quit now Osteoarthr itis of right hip joint 1262601108 84909 M16.11 xr 03/10 will follow Arthritis of right sacroiliac joint 9123679028 183235 M13.88 cr 03/10 notedrheum atology referralha d elevated aldolase level.ongo ing fatigueCK level normalseen rheumatolo gist Chronic pe lvic pain of female 075929378 D25.1 ongoing mild for long time.fu with gynecology Pelvic ultrasound with fibroid uterusFoll owed up with gynecologi st Secondary amenorrhea 156 932167 N91.1 urine poc negativefo llow up with female doctnow having menstruato in. quality systems engineer give her some medsnow resolved Dry eyes 160809446 H04.1 23 0387632 refresh plus Chronic insomnia 6251126 04 F51.04 170537 on trazodone prntreid in the past and worked well. Health Concerns Section Related Observation LastModified by Organization Detai ls LastModified Time None Recorded Concern Status LastModified by Organization Details LastModified Time None Recorded Payers Encounter Date Sequence Insurance Name Policy Number Policy Odell Covered Member ID Odell Member ID Guarantor Name 06/23/2025 1 [facility] ON OR AFTER 02/16/21 (MEDICAID REPLACEMENT - HMO) Kari Song [id number] Kari Song Notes Date Note Type Note Provider Name and Address Organization Details Recorded Time 06/23/2025 text/html ROS as noted in the HPI Pt here for med refill. Pt c/o fatigue and body aches. She is having tooth pain after recent dental work. She is following up with dentist. No chest pain, shortness of breath, nausea or vomiting. Kirit Hankins MD [address], [place], [address], [facility] 06/23/2025 11:36:05 OBGyn Episode No OBEpisode recorded.
== END 2025-07-06 12:42 | disposition home or self-care (01) ==
PROVIDERS: PCP Internal Medicine; Visit Provider Anesthesiology Pain Medicine
PROC: (CPT 64493; principal; 2025-07-06 10:50)
DX: M47.816 Spondylosis without myelopathy or radiculopathy, lumbar region (principal)
CPT/HCPCS: 64493; 64494; 99199

== ENCOUNTER 2025-08-09 06:48 | Day surgery (SDC) | payer MEDICAID, SELFPAY ==
--- NOTE | ~2025-08-09 | XR_ITS ---
XR fluoroscopy no charge Indication:Left L3, L4 and L5 medial branch dorsal ramus nerve block TECHNIQUE: Fluoroscopy used during Left L3, L4 and L5 medial branch dorsal ramus nerve block performed by [Keith Worthington MD] on 08/09/2025. 25 seconds of fluoroscopy with 7 fluoroscopic images captured. FINDINGS: Correlate with procedure note. IMPRESSION: Fluoroscopy used during Left L3, L4 and L5 medial branch dorsal ramus nerve block. Reviewed, dictated and finalized at location O. 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
--- NOTE | 2025-08-09 06:57 | WPDHPUPDATE1 ---
History and Physical Update Update Date/Time: 08/09/25 06:57 History and Physical has been reviewed, including an updated exam of the patient. There are NO changes in the patient's condition. Risks, benefits, and alternatives have been discussed and questions answered. Patient agrees to proceed with procedure.
--- NOTE | 2025-08-09 06:58 | W.PM.PROC2 ---
Procedure Note - Detailed Date of Procedure 08/09/25 Pre-op Diagnosis Lumbar Spondylosis w/o Myelopathy or Radiculopathy Post-op Diagnosis Same Procedure Performed Diagnostic Left Lumbar Medial Branch/Dorsal Ramus Blocks at L3, L4, L5 Treating the Ipsilateral L4-5, L5-S1 Facet Joints Under Fluoroscopic Guidance and with Contrast Control. (2 levels blocked). Surgeon Keith Worthington MD Operations And Maintenance Technican None. Anesthesia Local Description of Procedure INFORMED CONSENT: Risks, benefits and alternatives to the procedure were discussed in detail with the patient who expressed explicit understanding and consent to proceed. Patient was informed verbally and in written form regarding the risks associated with the procedure including the low risk of serious infection, bleeding/bruising, allergic reaction, nerve or organ injury, paralysis, procedural site pain or discomfort, worsening pain and/or mobility, failure to treat and/or disfigurement. The patient expressed explicit understanding and consent to proceed. All materials required for the procedure were available prior to procedure start. Site and side were marked prior to procedure and confirmed in the presence of the patient. PROCEDURE IN DETAIL: The patient was brought to the procedural suite and placed in the prone position. Patient was made comfortable with use of pillows under the head/chest, hips and ankles. Skin overlying the injection site on the affected side(s) was prepared broadly with ChloraPrep applicator and draped in a sterile manner. Aseptic technique was used throughout. The endplates of the vertebral bodies at the site(s) of interest were aligned in the AP view. Ipsilateral oblique angulation was utilized to optimize visualization of the intersection between the superior articulating process and transverse process at each target site. Local anesthesia was established by infiltration with approximately 5 mL of 1% lidocaine via a 1-1/2 inch 27-gauge needle. A 25-gauge 3.5 inch Quincke spinal needle was advanced until the needle tip contacted periosteum at the target site, left L3. Lateral view was utilized to confirm the appropriate placement of the needle tip just anterior to the facet line and superior to the pedicle. In the Lateral view, 0.25 mL of Omnipaque 300 contrast medium was injected after negative aspiration for CSF, blood or other bodily fluid, showing appropriate extra-articular spread of contrast without evidence of intravascular, foraminal or intrathecal placement. A 0.5 mL solution of 2.0% PF Lidocaine was injected after negative repeat aspiration. Appropriate spread of the injectate was confirmed with washout of previously injected contrast. No paresthesias were elicited. Needle was removed completely intact without difficulty. The same exact procedure was repeated for all remaining levels on the ipsilateral side, left L4, L5 medial branches/dorsal ramus, modified as necessary to accommodate for the new target location with identical findings and results and no evidence of complication. Images were saved and documented in the patient chart. Patient's skin was cleaned and sterile bandage applied. The patient tolerated the procedure well. The patient was transported to the recovery area in stable condition where they were observed for an appropriate amount of time prior to discharge, without evidence of complication. Patient was instructed on the appropriate completion of a pain diary over the next 12-24 hours. The patient was instructed to avoid excessive activity for the next 48 hours, including climbing and frequent use of stairs. Showers only for 48 hours. They were instructed not to drive or operate heavy machinery for 24 hours. They are to monitor for severe headaches, fevers, chills, night sweats, erythema/swelling at the site or any other signs of infection, bleeding/bruising, bowel or bladder changes as well as new pain, weakness or numbness in the upper or lower extremity. Should they notice these changes, they are instructed to call our office immediately or report directly to the nearest Emergency Department if no answer or if after posted office hours. COMPLICATIONS: None COMMENTS: None CONTRAST WASTED: 28.5mL Omnipaque 300. Complications No immediate complications Condition Stable Disposition Same day [facility] Billing Surgery - Charge Forward: Surgery Billing
--- OUTSIDE RECORDS SUMMARY | 2025-08-09 07:17 | XMS_ITS | Continuity of Care Document ---
Author Organization [place] - [facility], [facility] Address [address] [facility] [address] [place] [address] Assessment No assessment recorded. Plan of Treatment Reminders Order Date Submit Date Provider Last Modified By Organization Details Last Modified Time Details Appointments Follow Up 15 2025 09:45A M Kirit Hankins MD Not available Not available Not available Lab None recorded. Referral None recorded. Procedures None recorded. Surgeries None recorded. Imaging None recorded. Medication Orders naltrexon e 50 mg tablet 2024 [id number], [address] [place], [place], [id number], 05/20/2025 16:54:52 trazodone 50 mg tablet 2024 [place] [facility] #[id number], [address] [place], [id number], 05/20/2025 16:52:28 Adderall XR 30 mg capsule,e xtended release 2024 [place] [facility] #[id number], [address] [place], [id number], 05/20/2025 16:52:23 clonazepa m 0.5 mg tablet 2024 025 [id number], [address] [place], [id number], 05/20/2025 16:52:21 Patient TargetsNo targets recorded. Patient Instructions Encounter Date Encounter Id Patient Instructions Last Modified By Organization Details Last Modified Time 05/20/2025 [id number] Quitting Tobacco : Care Instructions [email or web address] Not available 05/20/2025 16:52:14 dry eyes: care instructions [email or web address] Not available 05/20/2025 16:52:14 chronic pelvic pain: care instructions [email or web address] Not available 05/20/2025 16:52:14 attention defici t hyperactivity disorder (ADHD) in adults: care instructions [email or web address] Not available 05/20/2025 16:52:14 learning about mood disorders [email or web address] Not available 05/20/2025 16:52:14 learning about mood disorders [email or web address] Not available 05/20/2025 16:52:14 I spent a total of __32____ minutes (excluding separately reportable procedure time ) in care of this patient. [email or web address] Not available 05/20/2025 16:55:37 Reason for Referral None Reported. Problems Name Problem SNOMED Code Status Onset Date Resolution Date Notes Provider Name and Address Organization Details Recorded Time Altered bowel function 00959726 Completed 06/12/2023 Altered bowel habits Kirit Hankins MD [address], [place], [address] [facility] 3 12:35:47 Acute bronchit is 35592008 Completed 06/12/2023 Acute bronchit is Kirit Hankins MD [address], [place], [address] , [facility] 3 12:32:32 Late effect of fracture of skull AND/OR face bones 07784359 Completed 06/12/2023 Late effect of fracture of skull AND/OR face bones Kirit Hankins MD [address], [place], [address] , [facility] 12:35:09 Depressi ve disorder 01436518 Completed 06/12/2023 Depresse d Depres sive disorder Davida Reyes [facility] 4 10:32:00 Toxicode ndron radicans poisonin g 55216517 Completed 06/12/2023 Poison emily poisonin g Kirit Hankins MD [address], [place], [address], [facility] 3 12:35:26 Acute mastitis 29246785 Completed 06/12/2023 Acute mastitis Kirit Hankins MD [address], [place], [address], [facility] 3 12:32:34 Fatigue 79150516 Active Fatigue Kirit Hankins MD [address], [place], [address], [facility] 5 16:51:45 Acute rhinosin usitis 911965976 Completed 06/12/2023 Acute rhinosin usitis Kirit Hankins MD [address], [place], [address], [facility] 3 12:32:36 Pleuriti c pain 6822069 Completed 06/12/2023 Pleuriti c pain Kirit Hankins MD [address], [place], [address], [facility] 3 12:35:32 Anxiety 68578115 Active 2014 Anxiety Kirit Hankins MD [address], [place], [address], [facility] 5 16:50:20 Urinary tract infectio us disease 37942036 Completed 201406/12/2023 Urinary tract infectio us disease Kirit Hankins MD [address], [place], [address], [facility] 4 12:56:26 Tobacco user 550582953 Active 2014 Tobacco use Kirit Hankins MD [address], [place], [address], [facility] 5 16:50:20 Alcoholi sm 6374284 Active 2014 Alcoholi sm Kirit Hankins MD [address], [place], [address], [facility] 5 16:55:01 Panic attack 199526018 Completed 201506/12/2023 Panic attack Kirit Hankins MD [address], [place], [address], [facility] 3 12:35:39 Gastriti s 6655072 Completed 201706/12/2023 Gastriti s Kirit Hankins MD [address], [place], [address], [facility] 3 12:35:41 Fibromyo sitis 55740377 Active 2022 Kirit Hankins MD [address], [place], [address], [facility] 5 16:50:20 Osteoart hritis of right hip joint 24713666692 9107 Active 2022 Kirit Hankins MD [address], [place], [address], [facility] 5 16:50:20 Arthriti s of right sacroili ac joint 31021941327 31744 Active 2022 Kirit Hankins MD [address], [place], [address], [facility] 5 16:50:20 Disorder of iron metaboli sm 17999536 Active 2022 Kirit Hankins MD [address], [place], [address], [facility] 5 16:50:20 Chronic pelvic pain of female 816336195 Active 2023 Kirit Hankins MD [address], [place], [address], [facility] 5 16:50:21 Acute upper respirat ory infectio n 46656850 Completed 202306/16/2024 Kirit Hankins MD [address], [place], [address], [facility] 4 12:56:13 Recurren t urinary tract infectio n 661059172 Completed 202306/16/2024 Kirit Hankins MD [address], [place], [address], [facility] 4 12:56:20 Urinary tract infectio us disease 50583888 Completed 202306/16/2024 Urinary tract infectio us disease Kirit Hankins MD [address], [place], [address], [facility] 4 12:56:25 Depressi ve disorder 52175351 Active 2023 Depresse d Depres sive disorder Davida Eric [facility] 4 10:32:00 Mood disorder 74515871 Active 2023 Kirit Hankins MD [address], [place], [address], [facility] 5 16:50:20 Chronic low back pain 935086600 Active 2023 Kirit Hankins MD [address], [place], [address], [facility] 5 16:50:20 Secondar y amenorrh ea 213106206 Active 2023 Kirit Hankins MD [address], [place], [address], [facility] 5 16:50:21 Degenera tion of lumbar interver tebral disc 25920838 Active 2023 Kirit Hankins MD [address], [place], [address], [facility] 5 16:50:20 Attentio n deficit hyperact ivity disorder 025139171 Active 2024 Kirit Hankins MD [address], [place], [address], [facility] 5 16:50:20 Projecti le vomiting 4278994 Active 2024 Kirit Hankins MD [address], [place], [address], [facility] 5 14:54:59 Dry eyes 399811520 Active 2024 Kirit Hankins MD [address], [place], [address], [facility] 5 15:03:44 Chronic insomnia 801558372 Active 2024 Kirit Hankins MD [address], [place], [address], [facility] 5 16:50:58 Problem Notes None recorded. Medical [...] TAKE 1/2 TABLET BY MOUTH AT BEDTIME active Not Available Not Available No t Available amoxicillin 500 mg capsule TAKE 1 CAPSULE [...] diclofenac sodium 75 mg tablet,chacorta yed release TAKE 1 TABLET BY MOUTH TWICE DAILY WITH MEALS active Not Available Not Available No t Available folic acid 1 mg tablet 1 tablet [...] weight Heart rate Respiratory rate Oxygen saturation Systolic And Diastolic Provider Name and Address Organization Details Last Updated DateTime 5 160.02 cm 98.2 [degF] 20 kg/m2 46308.9 4 g 67 /min 18 /min 97 % 104/70 mm[Hg] Davida Reyes [facility] 5 16:38:15 Social History None recorded. Functional [...] Recorded Time [facility] 11:43[facility]57 [facility] 3 [facility] 11:43:57 COVID-19, mRNA, LNP-S, PF, 30 mcg/0.3 mL dose, gali-sucrose 2 [facility] 11:43:57 DTP 0 completed [place] null, [facility] 06/12/2023 11:43:57 DTP 8 [facility] 11:43:57 DTP 8 completed [place] null, [facility] 06/12/2023 11:43:57 DTP 3 completed [place] null, [facility] 06/12/2023 11:43:57 DTP 8 completed [place] null, [facility] 06/12/2023 11:43:57 OPV, trivalent 0 [facility] 11:43:57 OPV, trivalent 8 completed [place] null, [facility] 06/12/2023 11:43:57 OPV, trivalent 8 completed [place] null, [facility] 06/12/2023 11:43:57 OPV, trivalent 3 completed [place] null, [facility] 06/12/2023 11:43:57 Td (adult), 2 Lf tetanus toxoid, preservative free, adsorbed 3 completed [place] null, [facility] 06/12/2023 11:43:57 Hep B, adolescent or pediatric 8 completed [place], [facility] 06/12/2023 11:43:57 Hep B, adolescent or pediatric 7 completed [place], [facility] 06/12/2023 11:43:57 Hep B, adolescent or pediatric 7 completed [place] null, [facility] 06/12/2023 11:43:57 Past Encounters Encounter ID Performer Location Encounter Start Date Encounter Closed Date Diagnosis/Indication Diagnosis SNOMED-CT Code Diagnosis ICD10 Code Diagnosis IMO Codes Diagnosis Note [id number] Kirit Hankins MD [facility] [address] [facility] [address] [place] [address] 04/22/2025 14:31:34 04/22/2025 15:09:01 Projectile vomiting 0811702 R11.12 93095834 resolving now.she has started on drinking again.abd exam is benign.inga e nausea still present,wi ll give zofran odt Degenerati on of lumbar intervertebral disc 83314657 M51.369 mild ddd on lumbar areamRI 01/10: mild disc bulge wtih facet arthritis, mild neuro foraminal narrowing noted at one level in low backpain mgmt referral done and going to see 04/14/25sedian barroso pain management completed physical therapy with not much reliefplan nataly to get her to injection soon Attention deficit hyperactivity disorder 489796393 F90.9 started on concerta by dion galvez 09/2024diag nosed with adhd.she needs to see dion littlejohn to make an appointmen t with them.will continue concertra in the interim.logan thomson referral and going to see a psych on concer ta causing side effects.wi ll switch to adderall. she has tried this before currently on adderallin creased to 30 mg dailynow seeing psychiatrewelina galvez Chronic low back pain 27 0665394 M54.50 xray done at chiropract orreceived the [...] le.other x-rays unremarkab le as well. 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 will send refill out Mood disorder 57681235 F 39 mood up and down. 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 TIBC low, iron level and saturation [...] heterozygo usrecheck level with improvemen t Alcoholism 8953511 F10.2 0 drinks frequently mostly binge drinkingco unseled on drinkingdi scussed different medication s.start naltrexone which she does not takeadvise d to contact alcohol rehab center for vivitrolsh e states she has slowed downwent to rehab 08/2024 to [facility]20[facility], [place] sporadical [place].continu es on AAadd acamprosat e which she has not received yetshe went to see psychiatir st and going to receive Anxiety 87199061 F41.9 on clonazepam for since 18started having panic attacks blackoutss chooling: did wellboyfri end suddenly, lot of stress due to familial stresstrie d different antidepres sants, zoloft, bupropion, lamictal in the past which did not helpdec 2021 admitted to psych facility for alcohol intoxicati on and potential suicidal intentions bupropion: sexual side effects and stoppedvra ylar: side effectswas diagnosed with ADHD Fatigue 24187409 R53.83 ongoingana negative 02/2022; kylah and anticcp: negativees r crp again normal Tobacco user 117117002 F 17.200 quit now Osteoarthr itis of right hip joint 4020188142 08095 M16.11 xr 03/10 will follow Arthritis of right sacroiliac joint 5056660559 497948 M13.88 cr 03/10 notedrheum atology referralha d elevated aldolase level.ongo ing fatigueCK level normalsche duled not until january 2025 Chronic pe lvic pain of female 052203631 R10.2 D25.1 ongoing mild for long time.fu with gynecology Pelvic ultrasound with fibroid uterusFoll owed up with gynecologi st Secondary amenorrhea 156 078004 N91.1 urine poc negativefo llow up with female doctnow having menstruato in. smoking pipe coater give her some medsnow resolved Dry eyes 614108145 H04.1 23 3402413 [id number] Kirit Hankins MD [facility] [address] [facility] [address] [place] [address] 05/20/2025 16:32:49 05/20/2025 17:00:07 Degeneration of lumbar intervertebral disc 37792310 M51.369 mild ddd on lumbar areamRI 01/10: mild disc bulge wtih facet arthritis, mild neuro foraminal narrowing noted at one level in low backpain mgmt referral done and going to see 04/14/25sedian n pain management completed physical therapy with not much reliefs/p injection 05/18/2025: with improvemen t Attention deficit hyperactivity disorder 646272087 F90.9 started on concerta by dion galvez 09/2024diag nosed with adhd.she needs to see dion littlejohn to make an appointmen t with them.will continue concertra in the interim.logan thomson referral and going to see a psych on concer ta causing side effects.wi ll switch to adderall. she has tried this before currently on adderallin creased to 30 mg dailynow seeing dion galvez Chronic low back pain 27 2523391 M54.50 xray done at chiropract orreceived the [...] le.other x-rays unremarkab le as well. Fibromyositis 66557657 M 79.7 ongoing muscle pain.eleva libertad aldolase in the past. recheck normal, ck normaldid not go to rheumatolo gistwialivia add flexeril prndiscuss ed cymbalta with the patient but she did not tryfu with pain management added gabpentin scheduled but she takes it as neededssee ing pain managmenet nowalso seen rheumatolo gist.added cyclobenza ivy and diclofenac she lost diclofenac .sent refill Mood disorder 68949943 F 39 mood up and down. will refer to dion martinez add vraylar for depression which had some side effects and she stoppedwil l add cymbalta for this.possi ble focus problem and will refer to behavioral health.bambi gnosed with ADHD and was started on concertaad d clonazpem prnadded bupropion: however caused crying episodeshe has now seeing dion galvez Disorder o f iron metabolism 08454136 E83.10 TIBC low, iron level and saturation [...] heterozygo usrecheck level with improvemen t Alcoholism 0735804 F10.2 0 drinks frequently mostly binge drinkingco unseled on drinkingdi scussed different medication s.start naltrexone which she does not takeadvise d to contact alcohol rehab center for vivitrolsh e states she has slowed downwent to rehab 08/2024 to 09[place]2024 [place] [facility], [place] sporadical ly.continu es on AAadd acamprosat e which she has not received yetshe went to see psychiatir st and going to receivelas t drink: she does not knowshe is not able to go get vivitrolwi ll start on naltrexone Anxiety 29610565 F41.9 on clonazepam for since 20started having panic attacks blackoutss chooling: did wellboyfri end suddenly, lot of stress due to familial stresstrie d different antidepres sants, zoloft, bupropion, lamictal in the past which did not helpdec 2021 admitted to psych facility for alcohol intoxicati on and potential suicidal intentions bupropion: sexual side effects and stoppedvra ylar: side effectswas diagnosed with ADHD Fatigue 81465477 R53.83 ongoingana negative 02/2022; kylah and anti-ccp: negativees r crp again normal Tobacco user 526587789 F 17.200 quit now Osteoarthr itis of right hip joint 0950288119 08936 M16.11 xr 03/10 will follow Arthritis of right sacroiliac joint 6417078670 932893 M13.88 cr 03/10 notedrheum atology referralha d elevated aldolase level.ongo ing fatigueCK level normalsche duled not until january 2025 Chronic pe lvic pain of female 951158030 D25.1 ongoing mild for long time.fu with gynecology Pelvic ultrasound with fibroid uterusFoll owed up with gynecologi st Secondary amenorrhea 156 042027 N91.1 urine poc negativefo llow up with female doctnow having menstruato in. smoking pipe coater give her some medsnow resolved Dry eyes 513588101 H04.1 23 3522760 refresh plus Chronic insomnia 6404939 04 F51.04 428411 on trazodone prntreid int eh past and worked well. Health Concerns Section Related Observation LastModified by Organization Detai ls LastModified Time None Recorded Concern Status LastModified by Organization Details LastModified Time None Recorded Payers Encounter Date Sequence Insurance Name Policy Number Policy Odell Covered Member ID Odell Member ID Guarantor Name 05/20/2025 1 [facility] - DOS ON OR AFTER 21 (MEDICAID REPLACEMENT - HMO) Kari Song [id number] Kari Song Notes Date Note Type Note [...] Kirit Hankins MD [address], [place], [address], [facility] 05/20/2025 16:57:38 OBGyn Episode No OBEpisode recorded.
--- OUTSIDE RECORDS SUMMARY | 2025-08-09 07:17 | XMS_ITS | Clinical Summary ---
Author Organization [facility] Address [address] [place] [address] Care Team Providers Care Senior Linux Unix Engineer Name Role Phone None, Provider Primary Care Provider Unavaila ble Allergies No known active allergies Medications VRAYLAR 1.5 MG capsule Take 1 capsule (1.5 mg total) by mouth daily. 02/13/2024 Active clonazePAM (KLONOPIN) 0.5 MG tablet Take 1 tablet (0.5 mg total) by mouth daily as needed. 02/13/2024 Active Social History Tobacco Use Types Packs/Day Years Used Date Smoking Tobacco: Never Smokeless Tobacco: Never Tobacco Cessation:Counseling Given: Not Answered Alcohol Use Standard Drinks/Week Comments Yes 0 (1 standard drink = 0.6 oz pure alcohol) every other day until I black out Comments No Sex and Gender Information Value Date Recorded Sex Assigned at Not on file Legal Sex Female 6:25 PM CDT Gender Identity Not on file Sexual Orientation Not on file Last Filed Vital Signs Vital Sign Reading Time Taken Comments Blood Pressure 116/82 03/01/2024 9:54 AM CDT Pulse 94 03/01/2024 9:54 AM CDT Temperature 37 C (98.6 F) 03/01/2024 9:54 AM CDT Respiratory Rate 14 03/01/2024 9:54 AM CDT Oxygen Saturation 98% 03/01/2024 9:54 AM CDT Inhaled Oxygen Concentration - - Weight 52.8 kg (116 lb 6.5 oz) 09/04/2023 12:54 AM RESIDENTIAL CASE MANAGER Height 160 cm (5' 3) 09/04/2023 12:54 AM RESIDENTIAL CASE MANAGER Body Mass Index 20.62 09/04/2023 12:54 AM RESIDENTIAL CASE MANAGER Plan of Treatment Health Maintenance Due Date Last Done Comments Cervical Cancer Screening Pap Smear (Age 30 to 64) Every 3 Years 1987 Annual Physical 1990 DTaP, Tdap and Td Vaccines (6 - Tdap) 11/25/2002 11/24/2002, 03/30/1993, 01/21/1990, Additional history exists Hepatitis C 2005 HPV Vaccines (1 - 3-dose SCDM series) 2014 Cervical Cancer Screening Pap with HPV Testing (Age 30 to 64) Every 5 Years 2017 Cervical Cancer Screening with HPV 2017 COVID-19 Vaccine ( season) 2025 11/05/2021 Influenza Adult (#1) 2025 Hepatitis B Vaccines Completed 11/01/1997, 07/25/1997, 06/21/1997 Hepatitis A Vaccines Aged Out No long er eligible based on patient's age to complete this topic Meningococcal B Vaccine Aged Out No l onger eligible based on patient's age to complete this topic Meningococcal Vaccine Aged Out No presley leticia eligible based on patient's age to complete this topic Pneumococcal Vaccine: Pediatrics (0 to 5 Years) and At-Risk Patients (6 to 49 Years) Aged Out No longer eligible based on patient's age to complete this topic RSV Immunizations Under 20 Months Aged Out No longer eligible based on patient's age to complete this topic Insurance [employer] Care Teams Senior Linux Unix Engineer Relationship Specialty Start Date End Date None, Provider, MD PCP - General UNKNOWN PHYSICIAN SPECIALTY 03/01/24
--- OUTSIDE RECORDS SUMMARY | 2025-08-09 07:17 | XMS_ITS | Clinical Summary ---
Author Organization [facility] Address [address] [place] [address] Care Team Providers Care Regulatory Affairs Strategy Specialist Name Role Phone Unknown, Provider Primary Care Provider Unavaila ble Source Comments [facility],non-owned Affiliates and Associated Physician Practices is [facility] organization consisting of ambulatory clinics and hospital sitesin [place], [place], [place] and [place]. This disclosure is being madepursuant to the Care Everywhere program and may not contain all information available regarding this patient. Last updated 18.[facility] [employer] Allergies No known active allergies Medications * [...] Date Acute upper respiratory infection 11/15/2023 04/05/2025 Encounters Date Type Department Care Team Description 07/19/2025 2:36 AM MASSAGE COORDINATOR - 07/19/2025 4:34 AM MASSAGE COORDIN[place] [address] Gagan Neri MD Anxiety states (Primary Dx); Substance use Discharge Disposition: Home or Self Care 07/19/2025 Travel from Last 3 Months Immunizations Immunization Administration Dates Next Due DTP [...] on file Legal Sex Female 6:45 PM MASSAGE COORDINATOR Gender Identity Not on file Sexual Orientation Not on file Last Filed Vital Signs Vital Sign Reading Time Taken Comments Blood Pressure 109/83 07/19/2025 4:00 AM MASSAGE COORDINATOR Pulse 93 07/19/2025 4:00 AM MASSAGE COORDINATOR Temperature 36.7 C (98.1 F) 07/19/2025 2:31 AM MASSAGE COORDINATOR Respiratory Rate 19 07/19/2025 4:00 AM MASSAGE COORDINATOR Oxygen Saturation 98% 07/19/2025 4:00 AM MASSAGE COORDINATOR Inhaled Oxygen Concentration - - Weight 51.5 kg (113 lb 9.6 oz) 01/20/2025 8:38 A M CDT Height 160 cm (5' 3) 01/20/2025 8:38 AM CDT Body Mass Index 20.12 01/20/2025 8:38 AM CDT Plan of Treatment Health Maintenance Due Date Last Done Comments HIV SCREENING 2002 DTAP/TDAP/TD VACCINES (6 - Tdap) 11/25/2002 11/24/2002, 03/30/1993, 01/21/1990, Additional history exists PAP SMEAR 2008 HPV VACCINE (1 - 3-dose SCDM series) 2014 DEPRESSION SCREENING 08/19/2024 COVID-19 VACCINE ( - season) 2025 11/05/2021 INFLUENZA VACCINE (#1) [...] luisa Non-reac tive 01/20/2025 11:55 AM CDT [facility] Comment:Hepatitis C Antibody screen indicates [...] LAB - CHEMISTRY ORDERA BLES Final Result [facility] [address] [address], [facility] [phone] from Last 3 Months or Most Recently Relevant to Health Maintenance Care Teams Regulatory Affairs Strategy Specialist Relationship Specialty Start Date End Date Unknown, Provider PCP - General 08/27/23
--- OUTSIDE RECORDS SUMMARY | 2025-08-09 07:18 | XMS_ITS | Continuity of Care Document ---
Author Organization [place] - [facility], [facility] Address [address] [facility] [address] [place] [address] Assessment No assessment recorded. Plan of Treatment Reminders Order Date Submit Date Provider Last Modified By Organization Details Last Modified Time Details Appointments Follow Up 15 2025 09:45A M Kirit Hankins MD Not available Not available Not available Lab None recorded. Referral None recorded. Procedures None recorded. Surgeries None recorded. Imaging None recorded. Medication Orders naltrexon e 50 mg tablet 2024 [id number], [address] [place], [id number], 07/27/2025 16:50:57 trazodone 50 mg tablet 2024 025 [place] [facility] #[id number], [address] [place], [id number], 07/27/2025 16:50:56 Adderall XR 30 mg capsule,e xtended release 2024 025 [place] [facility] #[id number], [address] [place], [id number], 07/27/2025 16:50:53 clonazepa m 0.5 mg tablet 2024 025 [facility][id number], [address] [place], [id number], 07/27/2025 16:50:54 Patient TargetsNo targets recorded. Patient Instructions Encounter Date Encounter Id Patient Instructions Last Modified By Organization Details Last Modified Time 07/27/2025 [id number] Quitting Tobacco : Care Instructions [email or web address] Not available 07/27/2025 16:50:43 dry eyes: care instructions [email or web address] Not available 07/27/2025 16:50:43 chronic pelvic pain: care instructions [email or web address] Not available 07/27/2025 16:50:43 attention defici t hyperactivity disorder (ADHD) in adults: care instructions [email or web address] Not available 07/27/2025 16:50:42 learning about mood disorders Not available 07/27/2025 16:50:43 learning about mood disorders [email or web address] Not available 07/27/2025 16:50:43 I spent a total of _33 minutes (excluding separately reportable procedure time ) in care of this patient. [email or web address] Not available 07/27/2025 16:49:56 Reason for Referral None Reported. Problems Name Problem SNOMED Code Status Onset Date Resolution Date Notes Provider Name and Address Organization Details Recorded Time Altered bowel function 61187523 Completed 06/12/2023 Altered bowel habits Kirit Hankins MD [address], [place], [address], [facility] 3 12:35:47 Acute bronchit is 81219359 Completed 06/12/2023 Acute bronchit is Kirit Hankins MD [address], [place], [address] , [facility] 3 12:32:32 Late effect of fracture of skull AND/OR face bones 48442355 Completed 06/12/2023 Late effect of fracture of skull AND/OR face bones Kirit Hankins MD [address], [place], [address] , [facility] 12:35:09 Depressi ve disorder 72061204 Completed 06/12/2023 Depresse d Depres sive disorder Davida Reyes [facility] 4 10:32:00 Toxicode ndron radicans poisonin g 65719744 Completed 06/12/2023 Poison emily poisonin g Kirit Hankins MD [address], [place], [address], [facility] 3 12:35:26 Acute mastitis 80500158 Completed 06/12/2023 Acute mastitis Kirit Hankins MD [address], [place], [address], [facility] 3 12:32:34 Fatigue 37780603 Active Fatigue Kirit Hankins MD [address], [place], [address], [facility] 5 16:51:45 Acute rhinosin usitis 053566761 Completed 06/12/2023 Acute rhinosin usitis Kirit Hankins MD [address], [place], [address], [facility] 3 12:32:36 Pleuriti c pain 7330149 Completed 06/12/2023 Pleuriti c pain Kirit Hankins MD [address], [place], [address], [facility] 3 12:35:32 Anxiety 20755999 Active 2014 Anxiety Kirit Hankins MD [address], [place], [address], [facility] 5 16:50:20 Urinary tract infectio us disease 47110305 Completed 201406/12/2023 Urinary tract infectio us disease Kirit Hankins MD [address], [place], [address], [facility] 4 12:56:26 Tobacco user 226820010 Active 2014 Tobacco use Kirit Hankins MD [address], [place], [address], [facility] 5 16:50:20 Alcoholi sm 1842676 Active 2014 Alcoholi sm Kiirt Hankins MD [address], [place], [address], [facility] 5 16:55:01 Panic attack 341878551 Completed 201506/12/2023 Panic attack Kirit Hankins MD [address], [place], [address], [facility] 3 12:35:39 Gastriti s 6101794 Completed 201706/12/2023 Gastriti s Kirit Hankins MD [address], [place], [address], [facility] 3 12:35:41 Fibromyo sitis 69163917 Active 2022 Kirit Hankins MD [address], [place], [address], [facility] 5 16:50:20 Osteoart hritis of right hip joint 06915044171 9107 Active 2022 Kirit Hankins MD [address], [place], [address], [facility] 5 16:50:20 Arthriti s of right sacroili ac joint 33737620927 75069 Active 2022 Kirit Hankins MD [address], [place], [address], [facility] 5 16:50:20 Disorder of iron metaboli sm 94656058 Active 2022 Kirit Hankins MD [address], [place], [address], [facility] 5 16:50:20 Chronic pelvic pain of female 906413581 Active 2023 Kirit Hankins MD [address], [place], [address], [facility] 5 16:50:21 Acute upper respirat ory infectio n 55149720 Completed 202306/16/2024 Kirit Hankins MD [address], [place], [address], [facility] 4 12:56:13 Recurren t urinary tract infectio n 103245605 Completed 202306/16/2024 Kirit Hankins MD [address], [place], [address], [facility] 4 12:56:20 Urinary tract infectio us disease 45310621 Completed 202306/16/2024 Urinary tract infectio us disease Kirit Hankins MD [address], [place], [address], [facility] 4 12:56:25 Depressi ve disorder 79204438 Active 2023 Depresse d Depres sive disorder Davida Eric [facility] 4 10:32:00 Mood disorder 25823760 Active 2023 Kirit Hankins MD [address], [place], [address], [facility] 5 16:50:20 Chronic low back pain 068070828 Active 2023 Kirit Hankins MD [address], [place], [address], [facility] 5 16:50:20 Secondar y amenorrh ea 312495133 Active 2023 Kirit Hankins MD [address] [facility] [address] [facility] [address], [place], [address], [facility] 5 16:50:21 Degenera tion of lumbar interver tebral disc 34819323 Active 2023 Kirit Hankins MD [address] [facility] [address], [place], [address], [facility] 5 16:50:20 Attentio n deficit hyperact ivity disorder 913403614 Active 2024 Kirit Hankins MD [address] [facility] [address], [place], [address], [facility] 5 16:50:20 Projecti le vomiting 2325905 Active 2024 Kirit Hankins MD [address] [facility] [address], [place], [address], [facility] 5 14:54:59 Dry eyes 760335854 Active 2024 Kirit Hankins MD [address] [facility] [address], [place], [address], [facility] 5 15:03:44 Chronic insomnia 824671802 Active 2024 Kirit Hankins MD [address] [facility] [address], [place], [address], [facility] 5 16:50:58 Problem Notes None [...] Details Last Updated DateTime 5 160.02 cm 98.1 [degF] 19.5 kg/m2 28470.1 6 g 79 /min 18 /min 99 % 118/80 mm[Hg] Davida Reyes [facility] 5 16:05:40 Social History None recorded. Functional Status None [...] Recorded Time [facility] 9 [facility] 11:43:57 [facility] 3 [facility] 11:43:57 COVID-19, mRNA, LNP-S, PF, 30 mcg/0.3 mL dose, gali-sucrose 2 completed [facility]23 11:43:57 DTP 0 completed [place] null, [facility] 06/12/2023 11:43:57 DTP 8 [facility]12/2023 11:43:57 DTP 8 completed [place] null, [facility] 06/12/2023 11:43:57 DTP 3 completed [place] null, [facility] 06/12/2023 11:43:57 DTP 8 [facility]23 11:43:57 OPV, trivalent 0 [facility]12[facility]2023 11:43:57 OPV, trivalent 8 completed [place] null, [facility] 06/12/2023 11:43:57 OPV, trivalent 8 completed [place] null, [facility] 06/12/2023 11:43:57 OPV, trivalent 3 completed [place] null, [facility] 06/12/2023 11:43:57 Td (adult), 2 Lf tetanus toxoid, preservative free, adsorbed 3 completed [place] null, [facility] 06/12/2023 11:43:57 Hep B, adolescent or pediatric 8 completed [place] null, [facility] 06/12/2023 11:43:57 Hep B, adolescent or pediatric 7 completed [place] null, [facility] 06/12/2023 11:43:57 Hep B, adolescent or pediatric 7 completed [place] null, [facility] 06/12/2023 11:43:57 Past Encounters Encounter ID Performer Location Encounter Start Date Encounter Closed Date Diagnosis/Indication Diagnosis SNOMED-CT Code Diagnosis ICD10 Code Diagnosis IMO Codes Diagnosis Note [id number] Kirit Hankins MD [facility] [address] [facility] [address] [place] [address] 07/27/2025 15:20:22 07/27/2025 16:55:55 Attention deficit hyperactivity disorder 085568769 F90.9 started on concerta by dion galvez 09/2024diag nosed with adhd.she needs to see dion littlejohn to make an appointmen t with them.will continue concertra in the interim.logan thomson referral and going to see a psych on ta causing side effects.wi ll switch to adderall. she has tried this before currently on adderallin creased to 30 mg dailynow seeing dion galvez but not anymore Degenerati on of lumbar intervertebral disc 64498190 M51.369 mild ddd on lumbar areamRI 01/10: mild disc bulge wtih facet arthritis, mild neuro foraminal narrowing noted at one level in low backpain mgmt referral done and going to see 04/14/25see n pain management completed physical therapy with not much reliefs/p injection 05/18/2025: with improvemen tpain back againshe is planned for left L3,L4, L5 RFA planned Chronic low back pain 27 5972811 M54.50 xray done at chiropract orreceived the [...] le.other x-rays unremarkab le as well. 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 recheck normal, ck normaldid not go to rheumatolo gistwill add flexeril prndiscuss ed cymbalta with the patient but she did not tryfu with pain management added gabpentin scheduled but she takes it as neededssee ing pain managmenet nowalso seen rheumatolo gist.added cyclobenza ivy and diclofenac she lost diclofenac .sent refill Mood disorder 61102204 F 39 mood up and down. 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 TIBC low, iron level and saturation [...] heterozygo usrecheck level with improvemen t Alcoholism 5883737 F10.2 0 drinks frequently mostly binge drinkingco [...] go get vivitrolst arted on naltrexone Anxiety 06158435 F41.9 on clonazepam for since 18started having panic attacks blackoutss chooling: did wellboyfri end suddenly, lot of stress due to familial stresstrie d different antidepres sants, zoloft, bupropion, lamictal in the past which did not helpdec 2021 admitted to psych facility for alcohol intoxicati on and potential suicidal intentions bupropion: sexual side effects and stoppedvra ylar: side effectswas diagnosed with ADHD Fatigue 25560586 R53.83 ongoingana negative 02/2022; kylah and anti-ccp: negativees r crp again normal Tobacco user 667744296 F 17.200 quit now Osteoarthr itis of right hip joint 4020815037 59445 M16.11 xr 03/10 will follow Arthritis of right sacroiliac joint 9074955973 742061 M13.88 cr 03/10 notedrheum atology referralha d elevated aldolase level.ongo ing fatigueCK level normalseen rheumatolo gist Chronic pe lvic pain of female 910864228 D25.1 ongoing mild for long time.fu with gynecology Pelvic ultrasound with fibroid uterusFoll owed up with gynecologi st Secondary amenorrhea 156 322864 N91.1 urine poc negativefo llow up with female doctnow having menstruato in. manager of sustainability give her some medsnow resolved Dry eyes 139221323 H04.1 23 0112049 refresh plus Chronic insomnia 5959220 04 F51.04 021806 on trazodone prntreid in the past and worked well. Health Concerns Section Related Observation LastModified by Organization Detai ls LastModified Time None Recorded Concern Status LastModified by Organization Details LastModified Time None Recorded Payers Encounter Date Sequence Insurance Name Policy Number Policy Odell Covered Member ID Odell Member ID Guarantor Name 07/27/2025 1 [place] [employer] Kari N Duncan [id number] Kari Song Notes Date Note Type Note Provider Name and Address Organization Details Recorded Time 07/27/2025 text/html ROS as noted in the HPI Pt here for ER f/u. Pt was seen in ER for anxiety and substance use. Pt states after using marijuana she had a panic attack. Today patient is requesting refills on medications. No chest pain, shortness of breath, nausea or vomiting. she claims she did not drink. Kirit Hankins MD [address], [place], [address], [facility] 07/27/2025 16:51:26 OBGyn Episode No OBEpisode recorded.
--- OUTSIDE RECORDS SUMMARY | 2025-08-09 07:18 | XMS_ITS | Clinical Summary ---
Author Organization [facility] Address [address] [place] [address] Care Team Providers Care Data Typist Name Role Phone Kirit Hankins MD Primary [...] Screening Completed 11/01/1997 , 07/25/1997, 06/21/1997 Insurance [facility] Care Teams Data Typist Relationship Specialty Start Date End Date Kirit Hankins MD [address] [facility] [address] [place] [address] PCP - General 11/29/20
--- OUTSIDE RECORDS SUMMARY | 2025-08-09 07:18 | XMS_ITS | Data Portability ---
Author Organization [place] [facility], [facility] Address [address] [facility] [address] [place] [address] Assessment No assessment recorded. Plan of Treatment Reminders Order Date Submit Date Provider Last Modified By Organization Details Last Modified Time Details Appointments Follow Up 15 2025 09:45A M Kirit Hankins MD Not available Not available Not available Lab gamma-glu tamyl transfera se (ggt), serum 2024 025 [employer] [facility], [address], [place], [address], 06/30/2025 04:05:06 CBC w/ auto diff 2024 025 [employer] [facility], [address], [address], [place], [address], 06/30/2025 04:05:05 vitamin D, 25-hydrox y, total, serum 2024 025 [employer] [facility], [address], [place], [address], 06/30/2025 04:05:06 iron + TIBC + ferritin, serum 2024 025 [employer] [facility], [address], [place], [address], 06/30/2025 04:05:06 vitamin B12 + folate, serum or blood [address] [facility], [address], [place], [address], 06/30/2025 04:05:06 CMP, serum or plasma 2024 025 [facility], [address], [address], [place], [address], 06/30/2025 04:05:06 TSH, serum or plasma 2024 025 [facility], [address], [address], [place], [address], 06/30/2025 04:05:06 urinalysi s complete, reflex culture 2024 025 [facility], [address], [address], [place], [address], 06/30/2025 04:05:07 erythrocy te sedimenta tion rate by westergre n method 2024 025 [facility], [address], [address], [place], [address], 06/30/2025 04:05:06 C-reactiv e protein, quantitat luisa, serum or plasma 2024 025 [facility], [address], [place], [address], 06/30/2025 04:05:07 Referral None recorded. Procedures None recorded. Surgeries None recorded. Imaging None recorded. Medication Orders naltrexon e 50 mg tablet 2024 025 [facility] #[id number], [address], [place], [place], [id number], 07/27/2025 16:50:57 trazodone 50 mg tablet 2024 025 [facility] #17358, [address], [place], [id number], 07/27/2025 16:50:56 Adderall XR 30 mg capsule,e xtended release 2024 [facility] #23729, [address], [place], [id number], 07/27/2025 16:50:53 clonazepa m 0.5 mg tablet 2024 [facility] #42124, [address], [place], [id number], 07/27/2025 16:50:54 naltrexon e 50 mg tablet 2024 [facility] #66372, [address], [place], [id number], 06/23/2025 11:35:55 trazodone 50 mg tablet 2024 [facility] #55733, [address], [place], [id number], 06/23/2025 11:35:54 cyclobenz aprine 10 mg tablet 2024 [facility] #27879, [address], [place], [place], [id number], 06/23/2025 11:35:54 diclofena c sodium 75 mg tablet,de layed release 2024 [facility] #38501, [address], [place], [id number], 06/23/2025 11:35:53 Adderall XR 30 mg capsule,e xtended release 2024 [facility] #55522, [address], [place], [id number], 06/23/2025 11:35:51 clonazepa m 0.5 mg tablet 2024 [facility] #84145, [address], [place], [id number], 06/23/2025 11:35:52 naltrexon e 50 mg tablet 2024 [facility] #01948, [address], [place], [id number], 05/20/2025 16:54:52 trazodone 50 mg tablet 2024 [facility] #52925, [address], [place], [place], [id number], 05/20/2025 16:52:28 Adderall XR 30 mg capsule,e xtended release 2024 [facility] #10999, [address], [place], [place], [id number], 05/20/2025 16:52:23 clonazepa m 0.5 mg tablet 2024 [facility] #98725, [address], [place], [place], [id number], 05/20/2025 16:52:21 Refresh Tears 0.5 % eye drops 2024 [facility] #51792, [address], [place], [place], [id number], 04/22/2025 15:05:42 ondansetr on 4 mg disintegr ating tablet 2024 [facility] #07953, [address], [place], [place], [id number], 04/22/2025 15:05:43 Adderall XR 30 mg capsule,e xtended release 2024 025 [facility] #26006, [address], [place], [place], [id number], 04/22/2025 15:05:37 clonazepa m 0.5 mg tablet 2024 [facility] #22732, [address], [place], [place], [id number], 04/22/2025 15:05:37 diclofena c sodium 75 mg tablet,de layed release 2024 [facility] #10624, [address], [place], [place], [id number], 03/24/2025 16:43:08 Adderall XR 30 mg capsule,e xtended release 2024 025 [facility] #68985, [address], [place], [place], [id number], 03/24/2025 16:43:10 clonazepa m 0.5 mg tablet 2024 [facility] #52264, [address], [place], [place], [id number], 03/24/2025 16:43:10 Patient TargetsNo targets recorded. Patient Instructions Encounter Date Encounter Id Patient Instructions Last Modified By Organization Details Last Modified Time 03/24/2025 [id number] Quitting Tobacco : Care Instructions [email or web address] Not available 03/24/2025 16:43:02 chronic pelvic pain: care instructions [email or web address] Not available 03/24/2025 16:43:02 attention defici t hyperactivity disorder (ADHD) in adults: care instructions [email or web address] Not available 03/24/2025 16:43:02 learning about mood disorders [email or web address] Not available 03/24/2025 16:43:02 learning about mood disorders [email or web address] Not available 03/24/2025 16:43:02 I spent a total of __31____ minutes (excluding separately reportable procedure time ) in care of this patient. [email or web address] Not available 03/24/2025 18:45:01 04/22/2025 [id number] Quitting Tobacco : Care Instructions [email or web address] Not available 04/22/2025 15:05:29 dry eyes: care instructions [email or web address] Not available 04/22/2025 15:05:29 chronic pelvic pain: care instructions [email or web address] Not available 04/22/2025 15:05:29 attention defici t hyperactivity disorder (ADHD) in adults: care instructions [email or web address] Not available 04/22/2025 15:05:29 learning about mood disorders [email or web address] Not available 04/22/2025 15:05:29 learning about mood disorders [email or web address] Not available 04/22/2025 15:05:29 I spent a total of __31____ minutes (excluding separately reportable procedure time ) in care of this patient. [email or web address] Not available 04/22/2025 15:03:05 05/20/2025 [id number] Quitting Tobacco : Care Instructions [email or web address] Not available 05/20/2025 16:52:14 dry eyes: care instructions [email or web address] Not available 05/20/2025 16:52:14 chronic pelvic pain: care instructions [email or web address] Not available 05/20/2025 16:52:14 attention defici t hyperactivity disorder (ADHD) in adults: care instructions [email or web address] Not available 05/20/2025 16:52:14 learning about mood disorders [email or web address] Not available 05/20/2025 16:52:14 learning about mood disorders [email or web address] Not available 05/20/2025 16:52:14 I spent a total of __32____ minutes (excluding separately reportable procedure time ) in care of this patient. [email or web address] Not available 05/20/2025 16:55:37 06/23/2025 [id number] Quitting Tobacco : Care Instructions [email or web address] Not available 06/23/2025 11:35:37 dry eyes: care instructions [email or web address] Not available 06/23/2025 11:35:36 chronic pelvic pain: care instructions [email or web address] Not available 06/23/2025 11:35:37 attention defici t hyperactivity disorder (ADHD) in adults: care instructions [email or web address] Not available 06/23/2025 11:35:37 learning about mood disorders [id number] Not available 06/23/2025 11:35:37 learning about mood disorders [email or web address] Not available 06/23/2025 11:35:36 I spent a total of __31____ minutes (excluding separately reportable procedure time ) in care of this patient. [email or web address] Not available 06/23/2025 11:35:47 07/27/2025 [id number] Quitting Tobacco : Care Instructions [email or web address] Not available 07/27/2025 16:50:43 dry eyes: care instructions [email or web address] Not available 07/27/2025 16:50:43 chronic pelvic pain: care instructions [email or web address] Not available 07/27/2025 16:50:43 attention defici t hyperactivity disorder (ADHD) in adults: care instructions Not available 07/27/2025 16:50:42 learning about mood disorders [email or web address] Not available 07/27/2025 16:50:43 learning about mood disorders Not available 07/27/2025 16:50:43 I spent a total of _33 minutes (excluding separately reportable procedure time ) in care of this patient. [email or web address] Not available 07/27/2025 16:49:56 Reason for Referral None Reported. Problems Name Problem SNOMED Code Status Onset Date Resolution Date Notes Provider Name and Address Organization Details Recorded Time Altered bowel function 94078654 Completed 06/12/2023 Altered bowel habits Kirit Hankins MD [address] [facility] [address], [place], [address] [place] [address] 10/25/202 3 12:35:47 Acute bronchit is 48723033 Completed 06/12/2023 Acute bronchit is Kirit Hankins MD [address] [facility] [address], [place], [address], [facility] 3 12:32:32 Late effect of fracture of skull AND/OR face bones 44543967 Completed 06/12/2023 Late effect of fracture of skull AND/OR face bones Kirit Hankins MD [address] [facility] [address], [place], [address], [facility] 3 12:35:09 Depressi ve disorder 13056065 Completed 06/12/2023 Depresse d Depres sive disorder Davida Reyes [facility] 4 10:32:00 Toxicode ndron radicans poisonin g 69814264 Completed 06/12/2023 Poison emily poisonin g Kirit Hankins MD [address] [facility] [address], [place], [address], [facility] 3 12:35:26 Acute mastitis 18656476 Completed 06/12/2023 Acute mastitis Kirit Hankins MD [address] [facility] [address], [place], [address], [facility] 3 12:32:34 Fatigue 77258543 Active Fatigue Kirit Hankins MD [address] [facility] [address], [place], [address], [facility] 5 16:51:45 Acute rhinosin usitis 158294325 Completed 06/12/2023 Acute rhinosin usitis Kirit Hankins MD [address] [facility] [address], [place], [address], [facility] 3 12:32:36 Pleuriti c pain 8609192 Completed 06/12/2023 Pleuriti c pain Kirit Hankins MD [address] [facility] [address], [place], [address], [facility] 3 12:35:32 Anxiety 02969533 Active 2014 Anxiety Kirit Hankins MD [address] [facility] [address], [place], [address], [facility] 5 16:50:20 Urinary tract infectio us disease 99154565 Completed 201406/12/2023 Urinary tract infectio us disease Kirit Hankins MD [address] [facility] [address], [place], [address], [facility] 4 12:56:26 Tobacco user 081528183 Active 2014 Tobacco use Kirit Hankins MD [address] [facility] [address], [place], [address], [facility] 5 16:50:20 Alcoholi sm 2064958 Active 2014 Alcoholi sm Kirit Hankins MD [address] [facility] [address], [place], [address], [facility] 5 16:55:01 Panic attack 476410572 Completed 201506/12/2023 Panic attack Kirit Haknins MD [address] [facility] [address], [place], [address], [facility] 3 12:35:39 Gastriti s 1015725 Completed 201706/12/2023 Gastriti s Kirit Hankins MD [address] [facility] [address], [place], [address], [facility] 3 12:35:41 Fibromyo sitis 77622630 Active 2022 Kirit Hankins MD [address] [facility] [address], [place], [address], [facility] 5 16:50:20 Osteoart hritis of right hip joint 05106694288 9107 Active 2022 Kirit Hankins MD [address] [facility] [address], [place], [address], [facility] 5 16:50:20 Arthriti s of right sacroili ac joint 30485024339 93432 Active 2022 Kirit Hankins MD [address] [facility] [facility] [address], [place], [address], [facility] 5 16:50:20 Disorder of iron metaboli sm 69523845 Active 2022 Kirit Hankins MD [address] [facility] [address], [place], [address], [facility] 5 16:50:20 Chronic pelvic pain of female 234970344 Active 2023 Kirit Hankins MD [address] [facility] [address], [place], [address], [facility] 5 16:50:21 Acute upper respirat ory infectio n 04149906 Completed 202306/16/2024 Kirit Hankins MD [address] [facility] [address], [place], [address], [facility] 4 12:56:13 Recurren t urinary tract infectio n 607291477 Completed 202306/16/2024 Kirit Hankins MD [address] [facility] [address], [place], [address], [facility] 4 12:56:20 Urinary tract infectio us disease 55991903 Completed 202306/16/2024 Urinary tract infectio us disease Kirit Hankins MD [address] [facility] [address], [place], [address], [facility] 4 12:56:25 Depressi ve disorder 76952943 Active 2023 Depresse d Depres sive disorder Davida Reyes [facility], [facility] 4 10:32:00 Mood disorder 34900289 Active 2023 Kirit Hankins MD [address], [place], [address], [facility] 5 16:50:20 Chronic low back pain 271831153 Active 2023 Kirit Hankins MD [address], [place], [address], [facility] 5 16:50:20 Secondar y amenorrh ea 276844544 Active 2023 Kirit Hankins MD [address], [place], [address], [facility] 5 16:50:21 Degenera tion of lumbar interver tebral disc 12355713 Active 2023 Kirit Hankins MD [address], [place], [address], [facility] 5 16:50:20 Attentio n deficit hyperact ivity disorder 709197069 Active 2024 Kirit Hankins MD [address] [facility] [address], [place], [address], [facility] 5 16:50:20 Projecti le vomiting 2738305 Active 2024 Kirit Hankins MD [address], [place], [address], [facility] 5 14:54:59 Dry eyes 746973812 Active 2024 Kirit Hankins MD [address], [place], [address], [facility] 5 15:03:44 Chronic insomnia 388035499 Active 2024 Kirit Hankins MD [address], [place], [address], [facility] 5 16:50:58 Problem Notes None recorded. [...] Not Available Not Available acamprosate 333 mg tablet,chcaorta yed release TAKE 2 TABLETS BY MOUTH [...] 5 160.02 cm 97.4 [degF] 19.8 kg/m2 52480.3 5 g 94 /min 16 /min 96 % 104/60 mm[Hg] [facility] 5 16:03:41 Date Recorded Body height Body temperature Body mass index (BMI) Body weight Heart rate Respiratory rate Oxygen saturation Systolic And Diastolic Provider Name and Address Organization Details Last Updated DateTime 5 160.02 cm 97.3 [degF] 20.4 kg/m2 62022.1 2 g 68 /min 18 /min 99 % 104/60 mm[Hg] [facility] 5 14:43:29 Date Recorded Body height Body temperature Body mass index (BMI) Body weight Heart rate Respiratory rate Oxygen saturation Systolic And Diastolic Provider Name and Address Organization Details Last Updated DateTime 5 160.02 cm 98.2 [degF] 20 kg/m2 00218.9 4 g 67 /min 18 /min 97 % 104/70 mm[Hg] [facility] 5 16:38:15 Date Recorded Body height Body temperature Body mass index (BMI) Body weight Heart rate Respiratory rate Oxygen saturation Systolic And Diastolic Provider Name and Address Organization Details Last Updated DateTime 5 160.02 cm 96.8 [degF] 20 kg/m2 17951.9 4 g 74 /min 18 /min 99 % 104/60 mm[Hg] [facility] 5 11:08:25 Date Recorded Body height Body temperature Body mass index (BMI) Body weight Heart rate Respiratory rate Oxygen saturation Systolic And Diastolic Provider Name and Address Organization Details Last Updated DateTime 5 160.02 cm 98.1 [degF] 19.5 kg/m2 89502.1 6 g 79 /min 18 /min 99 % 118/80 mm[Hg] [facility] 5 16:05:40 Social History None recorded. Functional [...] Recorded Time M[facility] 9 [facility] 11:43:57 MMR 3 completed [facility] 11:43:57 COVID-19, mRNA, LNP-S, PF, 30 mcg/0.3 mL dose, gali-sucrose 2 completed [facility]12[facility]2023 11:43:57 DTP 0 completed [place] null, [facility] 06/12/2023 11:43:57 DTP 8 completed [facility]/12/2023 11:43:57 DTP 8 completed [facility]/12/2023 11:43:57 DTP 3 completed [facility]/12/[facility]23 11:43:57 DTP 8 completed [facility]/12/2023 11:43:57 OPV, trivalent 0 completed [place] null, [facility] 06/12/2023 11:43:57 OPV, trivalent 8 completed [place] null, [facility] 06/12/2023 11:43:57 OPV, trivalent 8 completed [place] null, [facility] 06/12/2023 11:43:57 OPV, trivalent 3 completed [place] null, [facility] 06/12/2023 11:43:57 Td (adult), 2 Lf tetanus toxoid, preservative free, adsorbed 3 completed [place] null, [facility] 06/12/2023 11:43:57 Hep B, adolescent or pediatric 8 completed [place] null, [facility] 06/12/2023 11:43:57 Hep B, adolescent or pediatric 7 completed [place] null, [facility] 06/12/2023 11:43:57 Hep B, adolescent or pediatric 7 completed [place] null, [facility] 06/12/2023 11:43:57 Past Encounters Encounter ID Performer Location Encounter Start Date Encounter Closed Date Diagnosis/Indication Diagnosis SNOMED-CT Code Diagnosis ICD10 Code Diagnosis IMO Codes Diagnosis Note [id number] Kirit Hankins MD [facility] [address] [address] [place] [address] 06/12/2023 11:23:29 06/12/2023 12:53:37 Anxiety 56321490 F41.9 on clonazepam for since 18started having panic attacks black outsschool ing: did wellboyfri end suddenly, lot of stress due to familial stresstrie d different antidepres sants, zoloft, bupropion, lamictal in the past which did not helpdec 2021 admitted to psych facility for alcohol intoxicati on and potential suicidal intentions bupropion: sexual side effects Fatigue 86893660 R53.83 ongoingana negative 02/2022; kylah and anticcp: negative Tobacco user 193214828 F 17.200 ongoing smoking Alcoholism 5927742 F10.2 0 drinks frequently ,mostly binge drinkingco unsled on drinkingdi scused different medciation s.start naltrexone 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 will recckdid not go to rheumatoil ogist Osteoarthr itis of right hip joint 6461284792 23887 M16.11 xr 03/10 will follow Arthritis of right sacroiliac joint 4444831465 978391 M13.88 cr 03/10 notedrheum atology referral [id number] Kirit Hankins MD [facility] [address] [place] [address] 06/19/2023 12:17:20 06/19/2023 12:45:37 Anxiety 60494583 F41.9 on clonazepam for since 18started having panic attacks black outsschool ing: did wellboyfri end suddenly, lot of stress due to familial stresstrie d different antidepres sants, zoloft, bupropion, lamictal in the past which did not helpdec 2021 admitted to psych facility for alcohol intoxicati on and potential suicidal intentions bupropion: sexual side effects Fatigue 52190973 R53.83 ongoingana negative 02/2022; kylah and anticcp: negativees r crp again normal Tobacco user 588705129 F 17.200 ongoing smoking Alcoholism 9672397 F10.2 0 drinks frequently ,mostly binge drinkingco unsled on drinkingdi scused different medciation s.start naltrexone Fibromyositis 78713532 M 79.7 ongoing muscle pain.eleva libertad aldolase in the past. 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 TIBC low, iron level and saturation is high.03/09: these levels were normal.eric ritin level is normalwill recheck in future.she does not use iron regularlyw ill check hepatitis panel recheck iron levels in future.low er alcohol intake [id number] Kirit Hankins MD [facility] [address] [facility] [address] [place] [address] 11/15/2023 10:01:03 11/15/2023 10:41:48 Disorder of iron metabolism 86098828 E83.10 TIBC low, iron level and saturation is high.03/09: these levels were normal.eric ritin level is normalwill recheck in future.she does not use iron regularlyw ill check hepatitis panel recheck iron levels in future.low er alcohol intake Alcoholism 9649312 F10.2 0 drinks frequently , mostly binge drinkingco unseled on drinkingdi scussed different medication s.start naltrexone Anxiety 17807552 F41.9 on clonazepam for since 18started having panic attacks blackoutss chooling: did wellboyfri end suddenly, lot of stress due to familial stresstrie d different antidepres sants, zoloft, bupropion, lamictal in the past which did not helpdec 2021 admitted to psych facility for alcohol intoxicati on and potential suicidal intentions bupropion: sexual side effects Fatigue 27727807 R53.83 ongoingana negative 02/2022; kylah and anticcp: negativees r crp again normal Tobacco user 816808108 F 17.200 ongoing smoking Fibromyositis 93600596 M 79.7 ongoing muscle pain.eleva libertad aldolase in the past. recehck normal, ck normaldid not go to rheumatolo gist Osteoarthr itis of right hip joint 6777090714 62685 M16.11 xr 03/10 will follow Arthritis of right sacroiliac joint 0023554489 684137 M13.88 cr 03/10 notedrheum atology referral Chronic pe lvic pain of female 852126332 R10.2 ongoing mild for long time.fu with gynecology not until get pelvic us.check ua as wellaugmen tin for uti as well Acute uppe r respiratory infection 91463932 J06.9 will give augmentin [id number] Kirit Hankins MD [facility] [address] [facility] [address] [place] [address] 02/13/2024 10:19:11 02/13/2024 11:00:10 Disorder of iron metabolism 64127318 E83.10 TIBC low, iron level and saturation is high.03/09: these levels were normal.eric ritin level is normalwill recheck in future.she does not use iron regularlyh epatitis panel negative.l ower alcohol intake which she is having difficulty withwill check for hfe mutationre check labs Alcoholism 2460281 F10.2 0 drinks frequently mostly binge drinkingco unseled on drinkingdi scussed different medication s.start naltrexone which she does not takeadvise dto contact alcohol rehb center for vivitrol Anxiety 36698202 F41.9 on clonazepam for since 20started having panic attacks blackoutss chooling: did wellboyfri end suddenly, lot of stress due to familial stresstrie d different antidepres sants, zoloft, bupropion, lamictal in the past which did not helpdec 2021 admitted to psych facility for alcohol intoxicati on and potential suicidal intentions bupropion: sexual side effects Fatigue 44389661 R53.83 ongoingana negative 02/2022; kylah and anticcp: negativees r crp again normal Tobacco user 273842713 F 17.200 ongoing smoking Fibromyositis 20527441 M 79.7 ongoing muscle pain.eleva libertad aldolase in the past. recehck normal, ck normaldid not go to rheumatolo gist Osteoarthr itis of right hip joint 7487938677 52881 M16.11 xr 03/10 will follow Arthritis of right sacroiliac joint 5533763909 881067 M13.88 cr 03/10 notedrheum atology referral Chronic pe lvic pain of female 066764063 R10.2 D25.1 ongoing mild for long time.fu with gynecology not until lv c ultrasound with fibroid uterus Followed up with gynecologi st Mood disorder 85900768 F 39 mood up and down. will refer to psychaitri michelle add vraylar for depression [id number] Kirit Hankins MD [facility] [address] [place] [address] 06/16/2024 11:52:03 06/16/2024 13:09:59 Renewal of prescription [id number] Z76.0 Patient presented for medication refill. Patient tolerating medication well at current dose without adverse effects. Refilled as below. Discussed plan with patient, who expressed understand ing. Follow up as noted below. Mood disorder 18708750 F 39 mood up and down. will refer to psychaitri michelle jc vraylar for depression which had some side effects and she stopped. Disorder o f iron metabolism 36607090 E83.10 TIBC low, iron level and saturation is high.03/09: these levels were normal.eric ritin level is normalwill recheck in future.she does not use iron regularlyh epatitis panel negative.l ower alcohol intake which she is having difficulty withwill check for hfe mutationre check labs which is pending Alcoholism 4923886 F10.2 0 drinks frequently mostly binge drinkingco unseled on drinkingdi scussed different medication s.start naltrexone which she does not takeadvise dto contact alcohol re[facility] center for [facility] e states she has slowed down Anxiety 81326863 F41.9 on clonazepam for since 20started having panic attacks blackoutss chooling: did wellboyfri end suddenly, lot of stress due to familial stresstrie d different antidepres sants, zoloft, bupropion, lamictal in the past which did not helpdec 2021 admitted to psych facility for alcohol intoxicati on and potential suicidal intentions bupropion: sexual side effects and stopedvray lar: side effects Fatigue 00566409 R53.83 ongoingana negative 02/2022; kylah and anticcp: negativees r crp again normal Tobacco user 825492267 F 17.200 ongoing smoking Fibromyositis 84189569 M 79.7 ongoing muscle pain.eleva libertad aldolase in the past. recheck normal, ck normaldid not go to rheumatolo gistwialivia add flexeril prn Osteoarthr itis of right hip joint 6271746971 20562 M16.11 xr 03/10 will follow Arthritis of right sacroiliac joint 4077722502 642221 M13.88 cr 03/10 notedrheum atology referralha d elevated aldolase level.ongo ing fatigueCK level normal Chronic pe lvic pain of female 164037876 R10.2 D25.1 ongoing mild for long time.fu with gynecology not until aprilPelvi c ultrasound with fibroid uterus Followed up with gynecologi Chronic low back pain 27 0014942 M54.50 xray done at chiropract orreceived the injection at the chiropract oron ibuprofen prn Secondary amenorrhea 156 488956 N91.1 urine pocfollow up with female doctcheck hormone levels [id number] Kirit Hankins MD [facility] [address] [place] [address] 07/09/2024 10:22:57 07/09/2024 11:23:19 Chronic low back pain 441616109 M54.50 xray done at chiropract orreceived the injection at the chiropract oron ibuprofen prnxr lumbar ddd and facet arthritisr efer to pain management Fibromyositis 82241371 M 79.7 ongoing muscle pain.eleva libertad aldolase in the past. recheck normal, ck normaldid not go to rheumatolo gistwialivia add flexeril prndiscuss ed cymbalta with the patient, agreeable. Mood disorder 49852339 F 39 mood up and down. will refer to psychiatri michelle add vraylar for depression which had some side effects and she stoppedwil l add cymbalta for this.possi ble focus problem and will refer to behavioral health.salome holder refer to behavioral health Disorder o f iron metabolism 22856373 E83.10 TIBC low, iron level and saturation [...] with noted improvemen t.HFE mutation pending. Alcoholism 8206050 F10.2 0 drinks frequently mostly binge drinkingco unseled on drinkingdi scussed different medication s.start naltrexone which she does not takeadvise d to contact alcohol rehab center for [facility] e states she has slowed down Anxiety 40674869 F41.9 on clonazepam for since 20started having panic attacks blackoutss chooling: did wellboyfri end suddenly, lot of stress due to familial stresstrie d different antidepres sants, zoloft, bupropion, lamictal in the past which did not helpde2021 admitted to psych facility for alcohol intoxicati on and potential suicidal intentions bupropion: sexual side effects and stopedvray lar: side effects Fatigue 05799824 R53.83 ongoingana negative 02/2022; kylah and anticcp: negativees r crp again normal Tobacco user 612561564 F 17.200 ongoing smoking Osteoarthr itis of right hip joint 2243448902 61752 M16.11 xr 03/10 will follow Arthritis of right sacroiliac joint 0305785401 785933 M13.88 cr 03/10 notedrheum atology referralha d elevated aldolase level.ongo ing fatigueCK level normalsche duled not until january 2025 Chronic pe lvic pain of female 083611832 R10.2 D25.1 ongoing mild for long time.fu with gynecology Pelvic ultrasound with fibroid uterusFoll owed up with gynecologi st Secondary amenorrhea 156 794419 N91.1 urine pocfollow up with female doctnow having menstruato in. wool hat flanger giveher some meds Degenerati on of lumbar intervertebral disc 41997001 M51.369 mild ddd on lumbar areapain mgmt referral done today [id number] Kirit Hankins MD [facility] [address] [place] [address] 11/04/2024 10:44:23 11/04/2024 11:22:34 Chronic low back pain 613817631 M54.50 xray done at chiropract orreceived the injection at the chiropract oron ibuprofen prnxr lumbar ddd and facet arthritisr efer to pain management but missed the appointmen t, will rerefer them again Fibromyositis 78511709 M 79.7 ongoing muscle pain.eleva libertad aldolase in the past. recheck normal, ck normaldid not go to rheumatolo bety add flexeril prndiscuss ed cymbalta with the patient but she did not tryfu with pain management Mood disorder 33282653 F 39 mood up and down. will refer to psychiatri michelle jc vrayladamion for depression which had some side effects and she stoppedwil l add cymbalta for this.possi ble focus problem and will refer to behavioral health.bambi gnosed with ADHD and was started on concerta Disorder o f iron metabolism 72654366 E83.10 TIBC low, iron level and saturation [...] rehceck levels since off alcohol now Alcoholism 9636120 F10.2 0 drinks frequently mostly binge drinkingco unseled on drinkingdi scussed different medication s.start naltrexone which she does not takeadvise d to contact alcohol rehab center for vivitrols e states she has slowed downwent to rehab 08/2024 to 09/2024 in [facility], [place] Anxiety 27455550 F41.9 on clonazepam for since 20started having panic attacks blackoutss chooling: did wellboyfri end suddenly, lot of stress due to familial stresstrie d different antidepres sants, zoloft, bupropion, lamictal in the past which did not helpdec 2021 admitted to psych facility for alcohol intoxicati on and potential suicidal intentions bupropion: sexual side effects and stopedvray lar: side effectswas diagnosed with ADHD Fatigue 75532852 R53.83 ongoingana negative 02/2022; kylah and anticcp: negativees r crp again normal Tobacco user 841523638 F 17.200 ongoing smoking Osteoarthr itis of right hip joint 8710150583 74843 M16.11 xr 03/10 will follow Arthritis of right sacroiliac joint 3397074458 172432 M13.88 cr 03/10 notedrheum atology referralha d elevated aldolase level.ongo ing fatigueCK level normalsche duled not until january 2025 Chronic pe lvic pain of female 256806633 R10.2 D25.1 ongoing mild for long time.fu with gynecology Pelvic ultrasound with fibroid uterusFoll owed up with gynecologi st Secondary amenorrhea 156 271857 N91.1 urine pocfollow up with female doctnow having menstruato in. wool hat flanger giveher some meds Degenerati on of lumbar intervertebral disc 19361691 M51.369 mild ddd on lumbar areapain mgmt referral done but she missed the dose Attention deficit hyperactivity disorder 406184542 F90.9 started on concerta by dion galvez 09/2024diag nosespeedy with adhd.she needs to see psychiatrewelina littlejohn to make an appointmen t with them.will continue concertra in the interim.[facility] referral [id number] Kirit Hankins MD [facility] [address] [place] [address] 12/03/2024 16:37:45 12/03/2024 17:30:00 Attention deficit hyperactivity disorder 417927408 F90.9 started on concerta by dion galvez 09/2024didorothy nosed with adhd.she needs to see psychiatrewelina littlejohn to make an appointmen t with them.will continue concertra in the interim.[facility] referralco ncerta causing side effects.wi ll switch to adderall. she has tried this before Chronic low back pain 27 1917932 M54.50 xray done at chiropract orreceived the injection at the chiropract oron ibuprofen prnxr lumbar ddd and facet arthritisr efer to pain management but missed the appointmen t, will rerefer them againand scheduledw ill order MRI lumbar spine Fibromyositis 91428642 M 79.7 ongoing muscle pain.eleva libertad aldolase in the past. recheck normal, ck normaldid not go to rheumatolo gistsera add flexeril prndiscuss ed cymbalta with the patient but she did not tryfu with pain management will add gabpentin scheduleds cheduled with pain mgmt in february Mood disorder 68440184 F 41 mood up and down. will refer to dion martinez add vraylar for depression which had some side effects and she stoppedwil l add cymbalta for this.possi ble focus problem and will refer to behavioral health.bambi gnosed with ADHD and was started on concertaad d clonazpem prn Disorder o f iron metabolism 03840391 E83.10 TIBC low, iron level and saturation [...] heterozygo usrecheck level with improvemen t Alcoholism 0722542 F10.2 0 drinks frequently mostly binge drinkingco unseled on drinkingdi scussed different medication s.start naltrexone which she does not takeadvise d to contact alcohol rehab center for vivitrols e states she has slowed downwent to rehab 08/2024 to 09/2024 in [facility], [place] Anxiety 56882584 F41.9 on clonazepam for since 20started having panic attacks blackoutss chooling: did wellboyfri end suddenly, lot of stress due to familial stresstrie d different antidepres sants, zoloft, bupropion, lamictal in the past which did not helpdec 2021 admitted to psych facility for alcohol intoxicati on and potential suicidal intentions bupropion: sexual side effects and stopedvray lar: side effectswas diagnosed with ADHD Fatigue 50673396 R53.83 ongoingana negative 02/2022; kylah and anticcp: negativees r crp again normal Tobacco user 020474371 F 17.200 ongoing smoking Osteoarthr itis of right hip joint 5857112126 09968 M16.11 xr 03/10 will follow Arthritis of right sacroiliac joint 4474762676 463993 M13.88 cr 03/10 notedrheum atology referralha d elevated aldolase level.ongo ing fatigueCK level normalsche duled not until january 2025 Chronic pe lvic pain of female 226884752 R10.2 D25.1 ongoing mild for long time.fu with gynecology Pelvic ultrasound with fibroid uterusFoll owed up with gynecologi st Secondary amenorrhea 156 569095 N91.1 urine pocfollow up with female doctnow having menstruato in. wool hat flanger giveher some meds Degenerati on of lumbar intervertebral disc 98220865 M51.369 mild ddd on lumbar areapain mgmt referral done but she missed the dose [id number] Kirit Hankins MD [facility] [address] [place] [address] 12/31/2024 16:23:14 12/31/2024 17:08:59 Attention deficit hyperactivity disorder 875926379 F90.9 started on concerta by psychiatrewelina galvez 09/2024diag nosed with adhd.she needs to see psychiatri [facility]enc[facility] littlejohn to make an appointmen t with them.will continue concertra in the interim.[place] referral and going to see a psych on cer ta causing side effects.wi ll switch to adderall. she has tried this before currently on adderall Chronic low back pain 27 3004301 M54.50 xray done at chiropract orreceived the injection at the chiropract oron ibuprofen prnxr lumbar ddd and facet arthritisr efer to pain management but missed the appointmen t, will reefer them againand scheduledw ill order MRI lumbar spine scheduled nowcurrent ly doing therapypai n management in february 2025 Fibromyositis 58360865 M 79.7 ongoing muscle pain.eleva libertad aldolase in the past. recheck normal, ck normaldid not go to rheumatolo gistsera add flexeril prndiscuss ed cymbalta with the patient but she did not tryfu with pain management added gabpentin scheduled but she takes it as neededsche duled with pain mgmt in february Mood disorder 06157174 F 41 mood up and down. will refer to psychiatrewelina jc vraylar for depression which had some side effects and she stoppedwil l add cymbalta for this.possi ble focus problem and will refer to behavioral health.bambi gnosed with ADHD and was started on concertaad d clonazpem prnadded bupropion: however caused crying episode Disorder o f iron metabolism 89289481 E83.10 TIBC low, iron level and saturation [...] heterozygo usrecheck level with improvemen t Alcoholism 9433395 F10.2 0 drinks frequently mostly binge drinkingco unseled on drinkingdi scussed different medication s.start naltrexone which she does not takeadvise d to contact alcohol rehab center for vivitrolsh e states she has slowed downwent to rehab 08/2024 to 09[place]2024 [facility], [place] sporadical ly.continu es on AAadd acamprosat e Anxiety 80806266 F41.9 on clonazepam for since 20started having panic attacks blackoutss chooling: did wellboyfri end suddenly, lot of stress due to familial stresstrie d different antidepres sants, zoloft, bupropion, lamictal in the past which did not helpdec 2021 admitted to psych facility for alcohol intoxicati on and potential suicidal intentions bupropion: sexual side effects and stoppedvra ylar: side effectswas diagnosed with ADHD Fatigue 69214960 R53.83 ongoingana negative 02/2022; kylah and anticcp: negativees r crp again normal Tobacco user 376985455 F 17.200 ongoing smoking Osteoarthr itis of right hip joint 3888451161 09679 M16.11 xr 03/10 will follow Arthritis of right sacroiliac joint 7046327545 555639 M13.88 cr 03/10 notedrheum atology referralha d elevated aldolase level.ongo ing fatigueCK level normalsche duled not until january 2025 Chronic pe lvic pain of female 544591959 R10.2 D25.1 ongoing mild for long time.fu with gynecology Pelvic ultrasound with fibroid uterusFoll owed up with gynecologi st Secondary amenorrhea 156 965610 N91.1 urine pocfollow up with female doctnow having menstruato in. wool hat flanger giveher some meds Degenerati on of lumbar intervertebral disc 47706405 M51.369 mild ddd on lumbar areapain mgmt referral done but she missed the dose [id number] Kirit Hankins MD [facility] [address] [place] [address] 02/03/2025 15:25:13 02/03/2025 16:10:11 Attention deficit hyperactivity disorder 737220566 F90.9 started on concerta by psychiatrewelina galvez 09/2024diag nosed with adhd.she needs to see psychiatri [facility]enc[facility] littlejohn to make an appointmen t with them.will continue concertra in the interim.ga teway referral and going to see a psych on cer ta causing side effects.wi ll switch to adderall. she has tried this before currently on adderall Chronic low back pain 27 3111253 M54.50 xray done at chiropract orreceived the [...] le.other xrays unremarakb le as well. Fibromyositis 88235641 M 79.7 ongoing muscle pain.eleva libertad aldolase in the past. recheck normal, ck normaldid not go to rheumatolo gistwialivia add flexeril prndiscuss ed cymbalta with the patient but she did not tryfu with pain management added gabpentin scheduled but she takes it as neededssee ing pain managmenet now Mood disorder 64135028 F 39 mood up and down. will refer to psychiatrewelina jc vraylar for depression which had some side effects and she stoppedwil l add cymbalta for this.possi ble focus problem and will refer to behavioral health.bambi gnosed with ADHD and was started on concertaad d clonazpem prnadded bupropion: however caused crying episode Disorder o f iron metabolism 83146998 E83.10 TIBC low, iron level and saturation [...] heterozygo usrecheck level with improvemen t Alcoholism 4292415 F10.2 0 drinks frequently mostly binge drinkingco unseled on drinkingdi scussed different medication s.start naltrexone which she does not takeadvise d to contact alcohol rehab center for vivitrolsh e states she has slowed downwent to rehab 08/2024 to 09[place]2024 in [facility], [place] sporadical ly.continu es on AAadd acamprosat e which she has not received yet Anxiety 60637673 F41.9 on clonazepam for since 20started having panic attacks blackoutss chooling: did wellboyfri end suddenly, lot of stress due to familial stresstrie d different antidepres sants, zoloft, bupropion, lamictal in the past which did not helpdec 2021 admitted to psych facility for alcohol intoxicati on and potential suicidal intentions bupropion: sexual side effects and stoppedvra ylar: side effectswas diagnosed with ADHD Fatigue 63462922 R53.83 ongoingana negative 02/2022; kylah and anticcp: negativees r crp again normal Tobacco user 114294701 F 17.200 ongoing smoking Osteoarthr itis of right hip joint 6807511297 66206 M16.11 xr 03/10 will follow Arthritis of right sacroiliac joint 8661660907 521116 M13.88 cr 03/10 notedrheum atology referralha d elevated aldolase level.ongo ing fatigueCK level normalsche duled not until january 2025 Chronic pe lvic pain of female 572679867 R10.2 D25.1 ongoing mild for long time.fu with gynecology Pelvic ultrasound with fibroid uterusFoll owed up with gynecologi st Secondary amenorrhea 156 449828 N91.1 urine pocfollow up with female doctnow having menstruato in. wool hat flanger giveher some meds Degenerati on of lumbar intervertebral disc 33502994 M51.369 mild ddd on lumbar areapain mgmt referral done but she missed the dose [id number] Kirit Hankins MD [facility] [address] [place] [address] 03/24/2025 15:36:11 03/24/2025 16:45:11 Attention deficit hyperactivity disorder 962214707 F90.9 started on concerta by dion galvez 09/2024diag nosed with adhd.she needs to see psychiatri st.encoura littlejohn to make an appointmen t with them.will continue concertra in the interim.[facility] referral and going to see a psych on concer ta causing side effects.wi ll switch to adderall. she has tried this before currently on adderallwi ll increase to 30 mg daily Chronic low back pain 27 1905852 M54.50 xray done at chiropract orreceived the [...] le.other x-rays unremarkab le as well. Fibromyositis 12821660 M 79.7 ongoing muscle pain.eleva libertad aldolase [...] . will send refill out Mood disorder 51207119 F 41 mood up and down. will refer to psychiatrewelina jc vraylar for depression which had some side effects and she stoppedwil l add cymbalta for this.possi ble focus problem and will refer to behavioral health.bambi gnosed with ADHD and was started on concertaad d clonazpem prnadded bupropion: however caused crying episode Disorder o f iron metabolism 34970882 E83.10 TIBC low, iron level and saturation [...] heterozygo usrecheck level with improvemen t Alcoholism 3288446 F10.2 0 drinks frequently mostly binge drinkingco unseled on drinkingdi scussed different medication s.start naltrexone which she does not takeadvise d to contact alcohol rehab center for vivitrolsh e states she has slowed downwent to rehab 08/2024 to 09[place]2024 in [facility], [place] sporadical ly.continu es on AAadd acamprosat e which she has not received yet Anxiety 33170211 F41.9 on clonazepam for since 20started having panic attacks blackoutss chooling: did wellboyfri end suddenly, lot of stress due to familial stresstrie d different antidepres sants, zoloft, bupropion, lamictal in the past which did not helpdec 2021 admitted to psych facility for alcohol intoxicati on and potential suicidal intentions bupropion: sexual side effects and stoppedvra ylar: side effectswas diagnosed with ADHD Fatigue 66552890 R53.83 ongoingana negative 02/2022; kylah and anticcp: negativees r crp again normal Tobacco user 340163892 F 17.200 quit now Osteoarthr itis of right hip joint 6889410847 45202 M16.11 xr 03/10 will follow Arthritis of right sacroiliac joint 5418855205 490304 M13.88 cr 03/10 notedrheum atology referralha d elevated aldolase level.ongo ing fatigueCK level normalsche duled not until january 2025 Chronic pe lvic pain of female 197834000 R10.2 D25.1 ongoing mild for long time.fu with gynecology Pelvic ultrasound with fibroid uterusFoll owed up with gynecologi st Secondary amenorrhea 156 194497 N91.1 urine poc negativefo llow up with female doctnow having menstruato in. wool hat flanger give her some medsnow resolved Degenerati on of lumbar intervertebral disc 21574632 M51.369 mild ddd on lumbar areamRI 01/10: mild disc bulge wtih facet arthritis, mild neuro foraminal narrowing noted at one level in low backpain mgmt referral done and going to see 04/14/25see n pain management completed physical therapy with not much relief [id number] Kirit Hankins MD [facility] [address] [place] [address] 04/22/2025 14:31:34 04/22/2025 15:09:01 Projectile vomiting 7339588 R11.12 96908225 resolving now.she has started on drinking again.abd exam is benign.inga e nausea still present,wi ll give zofran odt Degenerati on of lumbar intervertebral disc 77604274 M51.369 mild ddd on lumbar areamRI 01/10: mild disc bulge wtih facet arthritis, mild neuro foraminal narrowing noted at one level in low backpain mgmt referral done and going to see 04/14/25see n pain management completed physical therapy with not much reliefplan nataly to get her to injection soon Attention deficit hyperactivity disorder 405122890 F90.9 started on concerta by dion galvez [...] dion galvez Chronic low back pain 27 8634315 M54.50 xray done at chiropract orreceived the [...] le.other x-rays unremarkab le as well. Fibromyositis 74421655 M 79.7 ongoing muscle pain.eleva libertad aldolase [...] . will send refill out Mood disorder 58174916 F 39 mood up and down. will refer to psychiatri michelle add vraylar for depression which had some side effects and she stoppedwil l add cymbalta for this.possi ble focus problem and will refer to behavioral health.bambi gnosed with ADHD and was started on concertaad d clonazpem prnadded bupropion: however caused crying episodeshe has now seeing psychiatri st Disorder o f iron metabolism 15416138 E83.10 TIBC low, iron level and saturation [...] heterozygo usrecheck level with improvemen t Alcoholism 4818757 F10.2 0 drinks frequently mostly binge drinkingco unseled on drinkingdi scussed different medication s.start naltrexone which she does not takeadvise d to contact alcohol rehab center for vivitrolsh e states she has slowed downwent to rehab 08/2024 to 09[place]2024 in [facility] [place], [place] sporadical ly.continu es on AAadd acamprosat e which she has not received yetshe went to see psychiatir st and going to receive Anxiety 70674141 F41.9 on clonazepam for since 20started having panic attacks blackoutss chooling: did wellboyfri end suddenly, lot of stress due to familial stresstrie d different antidepres sants, zoloft, bupropion, lamictal in the past which did not helpdec 2021 admitted to psych facility for alcohol intoxicati on and potential suicidal intentions bupropion: sexual side effects and stoppedvra ylar: side effectswas diagnosed with ADHD Fatigue 71955331 R53.83 ongoingana negative 02/2022; kylah and anticcp: negativees r crp again normal Tobacco user 672253113 F 17.200 quit now Osteoarthr itis of right hip joint 9278718453 27738 M16.11 xr 03/10 will follow Arthritis of right sacroiliac joint 3790553766 390171 M13.88 cr 03/10 notedrheum atology referralha d elevated aldolase level.ongo ing fatigueCK level normalsche duled not until january 2025 Chronic pe lvic pain of female 686118986 R10.2 D25.1 ongoing mild for long time.fu with gynecology Pelvic ultrasound with fibroid uterusFoll owed up with gynecologi st Secondary amenorrhea 156 401208 N91.1 urine poc negativefo llow up with female doctnow having menstruato in. wool hat flanger give her some medsnow resolved Dry eyes 945043842 H04.1 23 1415002 [id number] Kirit Hankins MD [facility] [address] [place] [address] 05/20/2025 16:32:49 05/20/2025 17:00:07 Degeneration of lumbar intervertebral disc 11197808 M51.369 mild ddd on lumbar areamRI 01/10: mild disc bulge wtih facet arthritis, mild neuro foraminal narrowing noted at one level in low backpain mgmt referral done and going to see 04/14/25see n pain management completed physical therapy with not much reliefs/p injection 05/18/2025: with improvemen t Attention deficit hyperactivity disorder 701948351 F90.9 started on concerta by dion galvez 09/2024didorothy nosed with adhd.she needs to see psychiatri st.encoura littlejohn to make an appointmen t with them.will continue concertra in the interim.logan thomson referral and going to see a psych on concer ta causing side effects.wi ll switch to adderall. she has tried this before currently on adderallin creased to 30 mg dailynow seeing psychiatrewelina galvez Chronic low back pain 27 5004764 M54.50 xray done at chiropract orreceived the [...] le.other x-rays unremarkab le as well. Fibromyositis 90611667 M 79.7 ongoing muscle pain.eleva libertad aldolase in the past. recheck normal, ck normaldid not go to rheumatolo gistwill add flexeril prndiscuss ed cymbalta with the patient but she did not tryfu with pain management added gabpentin scheduled but she takes it as neededssee ing pain managmenet nowalso seen rheumatolo gist.added cyclobenza ivy and diclofenac she lost diclofenac .sent refill Mood disorder 93540571 F 39 mood up and down. will refer to psychiatri michelle add vraylar for depression which had some side effects and she stoppedwil l add cymbalta for this.possi ble focus problem and will refer to behavioral health.bambi gnosed with ADHD and was started on concertaad d clonazpem prnadded bupropion: however caused crying episodeshe has now seeing psychiatri st Disorder o f iron metabolism 37894232 E83.10 TIBC low, iron level and saturation [...] heterozygo usrecheck level with improvemen t Alcoholism 8421050 F10.2 0 drinks frequently mostly binge drinkingco unseled on drinkingdi scussed different medication s.start naltrexone which she does not takeadvise d to contact alcohol rehab center for vivitrolsh e states she has slowed downwent to rehab [facility]2024 [place] [place] sporadical [place].continu es on AAadd acamprosat e which she has not received yetshe went to see psychiatir st and going to receivelas t drink: she does not knowshe is not able to go get vivitrolwi ll start on naltrexone Anxiety 62368043 F41.9 on clonazepam for since 20started having panic attacks blackoutss chooling: did wellboyfri end suddenly, lot of stress due to familial stresstrie d different antidepres sants, zoloft, bupropion, lamictal in the past which did not helpdec 2021 admitted to psych facility for alcohol intoxicati on and potential suicidal intentions bupropion: sexual side effects and stoppedvra ylar: side effectswas diagnosed with ADHD Fatigue 32129650 R53.83 ongoingana negative 02/2022; kylah and anti-ccp: negativees r crp again normal Tobacco user 128234829 F 17.200 quit now Osteoarthr itis of right hip joint 8709482661 91435 M16.11 xr 03/10 will follow Arthritis of right sacroiliac joint 0566091174 758142 M13.88 cr 03/10 notedrheum atology referralha d elevated aldolase level.ongo ing fatigueCK level normalsche duled not until january 2025 Chronic pe lvic pain of female 959574400 D25.1 ongoing mild for long time.fu with gynecology Pelvic ultrasound with fibroid uterusFoll owed up with gynecologi st Secondary amenorrhea 156 388077 N91.1 urine poc negativefo llow up with female doctnow having menstruato in. wool hat flanger give her some medsnow resolved Dry eyes 733277397 H04.1 23 2403411 refresh plus Chronic insomnia 6779301 04 F51.04 019008 on trazodone prntreid int eh past and worked well. [id number] Kirit Hankins MD [facility] [address] [place] [address] 06/23/2025 11:02:24 06/23/2025 11:40:48 Attention deficit hyperactivity disorder 021129613 F90.9 started on concerta by psychiatrewelina galvez 09/2024diag nosed with adhd.she needs to see psychiatri st.encoura littlejohn to make an appointmen t with them.will continue concertra in the interim.ga teway referral and going to see a psych on concer ta causing side effects.wi ll switch to adderall. she has tried this before currently on adderallin creased to 30 mg dailynow seeing psychiatri Degenerati on of lumbar intervertebral disc 14331701 M51.369 mild ddd on lumbar areamRI 01/10: mild disc bulge wtih facet arthritis, mild neuro foraminal narrowing noted at one level in low backpain mgmt referral done and going to see 04/14/25see n pain management completed physical therapy with not much reliefs/p injection 05/18/2025: with improvemen tpain back againshe is planned for left L3,L4, L5 RFA planned Chronic low back pain 27 8342485 M54.50 xray done at chiropract orreceived the [...] le.other x-rays unremarkab le as well. Fibromyositis 03682180 M 79.7 ongoing muscle pain.eleva libertad aldolase in the past. recheck normal, ck normaldid not go to rheumatolo gistwialivia add flexeril prndiscuss ed cymbalta with the patient but she did not tryfu with pain management added gabpentin scheduled but she takes it as neededssee ing pain managmenet nowalso seen rheumatolo gist.added cyclobenza ivy and diclofenac she lost diclofenac .sent refill Mood disorder 12429946 F 39 mood up and down. 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 TIBC low, iron level and saturation [...] heterozygo usrecheck level with improvemen t Alcoholism 2932707 F10.2 0 drinks frequently mostly binge drinkingco unseled on drinkingdi scussed different medication s.start naltrexone which she does not takeadvise d to contact alcohol rehab center for vivitrolsh e states she has slowed downwent to rehab 08/2024 to 09[place]24 [place] [facility], [place] sporadical ly.continu es on AAadd acamprosat e which she has not received yetshe went to see psychiatir st and going to receivelas t drink: she does not knowshe is not able to go get vivitrolst arted on naltrexone Anxiety 41612159 F41.9 on clonazepam for since 20started having panic attacks blackoutss chooling: did wellboyfri end suddenly, lot of stress due to familial stresstrie d different antidepres sants, zoloft, bupropion, lamictal in the past which did not helpdec 2021 admitted to psych facility for alcohol intoxicati on and potential suicidal intentions bupropion: sexual side effects and stoppedvra ylar: side effectswas diagnosed with ADHD Fatigue 58923095 R53.83 ongoingana negative 02/2022; kylah and anti-ccp: negativees r crp again normal Tobacco user 540264811 F 17.200 quit now Osteoarthr itis of right hip joint 5124187370 48010 M16.11 xr 03/10 will follow Arthritis of right sacroiliac joint 5438957876 549451 M13.88 cr 03/10 notedrheum atology referralha d elevated aldolase level.ongo ing fatigueCK level normalseen rheumatolo gist Chronic pe lvic pain of female 332875362 D25.1 ongoing mild for long time.fu with gynecology Pelvic ultrasound with fibroid uterusFoll owed up with gynecologi st Secondary amenorrhea 156 848378 N91.1 urine poc negativefo llow up with female doctnow having menstruato in. wool hat flanger give her some medsnow resolved Dry eyes 391146582 H04.1 23 4464746 refresh plus Chronic insomnia 6960371 04 F51.04 912646 on trazodone prntreid in the past and worked well. [id number] Kirit Hankins MD [facility] [address] [place] [address] 07/27/2025 15:20:22 07/27/2025 16:55:55 Attention deficit hyperactivity disorder 775301490 F90.9 started on concerta by psychiatrewelina galvez 09/2024diag nosed with adhd.she needs to see psychiatrewelina galvez.sherron littlejohn to make an appointmen t with them.will continue concertra in the interim.logan thomson referral and going to see a psych on concer ta causing side effects.wi ll switch to adderall. she has tried this before currently on adderallin creased to 30 mg dailynow seeing psychiatrewelina galvez but not anymore Degenerati on of lumbar intervertebral disc 64131474 M51.369 mild ddd on lumbar areamRI 01/10: mild disc bulge wtih facet arthritis, mild neuro foraminal narrowing noted at one level in low backpain mgmt referral done and going to see 04/14/25see n pain management completed physical therapy with not much reliefs/p injection 05/18/2025: with improvemen tpain back againshe is planned for left L3,L4, L5 RFA planned Chronic low back pain 27 1912127 M54.50 xray done at chiropract orreceived the [...] le.other x-rays unremarkab le as well. Fibromyositis 17506186 M 79.7 ongoing muscle pain.eleva libertad aldolase in the past. recheck normal, ck normaldid not go to rheumatolo gistwill add flexeril prndiscuss ed cymbalta with the patient but she did not tryfu with pain management added gabpentin scheduled but she takes it as neededssee ing pain managmenet nowalso seen rheumatolo gist.added cyclobenza ivy and diclofenac she lost diclofenac .sent refill Mood disorder 12184439 F 39 mood up and down. will refer to psychiatri stsera add vraylar for depression which had some side effects and she stoppedwil l add cymbalta for this.possi ble focus problem and will refer to behavioral health.bambi gnosed with ADHD and was started on concertaad d clonazpem prnadded bupropion: however caused crying episodeshe has now seeing psychiatri st Disorder o f iron metabolism 31967238 E83.10 TIBC low, iron level and saturation [...] heterozygo usrecheck level with improvemen t Alcoholism 5661772 F10.2 0 drinks frequently mostly binge drinkingco unseled on drinkingdi scussed different medication s.start naltrexone which she does not takeadvise d to contact alcohol rehab center for vivitrolsh e states she has slowed downwent to rehab 08/2024 to 09[place]24 [place] [facility], [place] sporadical ly.continu es on AAadd acamprosat e which she has not received yetshe went to see psychiatir st and going to receivelas t drink: she does not knowshe is not able to go get vivitrolst arted on naltrexone Anxiety 34457552 F41.9 on clonazepam for since 20started having panic attacks blackoutss chooling: did wellboyfri end suddenly, lot of stress due to familial stresstrie d different antidepres sants, zoloft, bupropion, lamictal in the past which did not helpdec 2021 admitted to psych facility for alcohol intoxicati on and potential suicidal intentions bupropion: sexual side effects and stoppedvra ylar: side effectswas diagnosed with ADHD Fatigue 65319452 R53.83 ongoingana negative 02/2022; kylah and anti-ccp: negativees r crp again normal Tobacco user 183881337 F 17.200 quit now Osteoarthr itis of right hip joint 5297997276 19185 M16.11 xr 03/10 will follow Arthritis of right sacroiliac joint 9583566174 610876 M13.88 cr 03/10 notedrheum atology referralha d elevated aldolase level.ongo ing fatigueCK level normalseen rheumatolo gist Chronic pe lvic pain of female 145782768 D25.1 ongoing mild for long time.fu with gynecology Pelvic ultrasound with fibroid uterusFoll owed up with gynecologi st Secondary amenorrhea 156 154745 N91.1 urine poc negativefo llow up with female doctnow having menstruato in. wool hat flanger give her some medsnow resolved Dry eyes 859628396 H04.1 23 6416020 refresh plus Chronic insomnia 6774331 04 F51.04 500640 on trazodone prntreid in the past and worked well. Health Concerns Section Related Observation LastModified by Organization Detai ls LastModified Time None Recorded Concern Status LastModified by Organization Details LastModified Time None Recorded Advance Directives Directive None Recorded Payers Insurance Date Sequence Insurance Name Policy Number Policy Odell Covered Member ID Odell Member ID Guarantor Name 07/27/2025 1 [facility] - DOS ON OR AFTER 21 (MEDICAID REPLACEMENT - HMO) Kari Song [id number] Kari Song 07/27/2025 1 [place] [employer] Kari Song [id number] Kari Song Notes Date Note Type Note Provider Name and Address Organization Details Recorded Time 03/24/2025 text/html Pt here for follow up. Patient completed physical therapy with no improvement of lower back pain. She is waiting to obtain MRI at the end of March. Back pain 11/26. She takes IBP 800mg daily for the pain. She has been having constipation. No chest pain, shortness of breath, nausea or vomiting. Kirit Hankins MD [address] [facility] [address] [place], [address], [facility] 03/24/2025 18:45:04 04/22/2025 text/html ROS as noted in the HPI Pt here for med refill. Pt c/o vomiting on Saturday while eating at [employer]. Since Saturday, she has been feeling nauseous, gassy, bloated, and having dark stool. test negative. No chest pain, shortness of breath. she had relapsed on her alcohol and is now seeing psychiatirst and addiciton. she is goign to start vivitrol soon. MD Sophie E[address] [facility] [address], [place], [address], [facility] 04/22/2025 17:23:35 05/20/2025 text/html ROS as noted in the HPI Pt here for follow up. Pt received injection in back on 05/18/2025. Pain improved in 2 hours and was completely pain free next morning. 0/10. No chest pain, shortness of breath, nausea or vomiting. MD Sophie Estrada[address] [facility] [address], [place], [address], [facility] 05/20/2025 16:57:38 06/23/2025 text/html ROS as noted in the HPI Pt here for med refill. Pt c/o fatigue and body aches. She is having tooth pain after recent dental work. She is following up with dentist. No chest pain, shortness of breath, nausea or vomiting. MD Eliseo Estrada N [facility] [address], [place], [address], [facility] 06/23/2025 11:36:05 07/27/2025 text/html ROS as noted in the HPI Pt here for ER f/u. Pt was seen in ER for anxiety and substance use. Pt states after using marijuana she had a panic attack. Today patient is requesting refills on medications. No chest pain, shortness of breath, nausea or vomiting. she claims she did not drink. MD Eliseo Estrada N [facility] [address], [place], [address], [facility] 07/27/2025 16:51:26 OBGyn Episode No OBEpisode recorded.
--- OUTSIDE RECORDS SUMMARY | 2025-08-09 07:18 | XMS_ITS | Encounter Summary ---
Author Organization [facility] Address [address] [place] [id number] Care Team Providers [facility] Supervisor Name Role Phone Jagruti Carcamo MD Primary Care Provider [phone] None, Provider Primary Care Provider Unavaila ble Encounter Details Date Type Department Care Team (Late st Contact Info) Description 06/22/2017 [place] [address] , Generic Conversion, Social History Tobacco Use Types Packs/Day Years Used Date Smoking Tobacco: Never Assessed Comments Unknown Sex and Gender Information Value Date Recorded Sex Assigned at Not on file Legal Sex Female 6:25 PM CDT Gender Identity Not on file Sexual Orientation Not on file documented as of this encounter Plan of Treatment Not on file documented as of this encounter Visit Diagnoses Not on filedocumented in this encounter Additional Health Concerns Infection Onset Date Last Indicated Resolved Time COVID-19 Rule Out 08/07/2022 08/07/2022 08/07/2022 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
--- OUTSIDE RECORDS SUMMARY | 2025-08-09 07:18 | XMS_ITS | Encounter Summary ---
Author Organization [facility] Address [address] [place] [address] Care Team Providers Care Ginner Name Role Phone Unknown, Provider Primary Care Provider Unavaila ble Reason for Referral * Consultation (Routine) - Closed Specialty Diagnoses / Procedures Referred By Contac t Referred To Contact Rheumatology Diagnoses Other specified arthritis, other site Kirit Hankins MD Phone: tel: fax: [facility] - Rheumatology [facility] [place] [address] Phone: tel: fax: Referral ID Status Reason Start Date Expiration Date V isits Requested Visits Authorized [id number] Closed Specialty Services Required 07/02/2024 07/02/2025 1 1 HASING OFFICER Encounter Details Date Type Department Care Team (Latest Contact Info) Description 07/02/2024 Transcribe Orders [facility] - Centralized Scheduling [address] [place] [id number] Kirit Hankins MD [address] [place] [address] Other specified arthritis, other site Social History Tobacco Use Types Packs/Day Years Used Date Smoking Tobacco: Never Smokeless Tobacco: Former Comments Unknown Sex and Gender Information Value Date Recorded Sex Assigned at Not on file Legal Sex Female 6:45 PM 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
--- OUTSIDE RECORDS SUMMARY | 2025-08-09 07:18 | XMS_ITS | Continuity of Care Document ---
Author Organization [place] - [facility], [facility] Address [address] [facility] [address] [place] [address] Assessment No assessment recorded. Plan of Treatment Reminders Order Date Submit Date Provider Last Modified By Organization Details Last Modified Time Details Appointments Follow Up 15 2025 09:45A M Kirit Hankins MD Not available Not available Not available Lab gamma-glu tamyl transfera se (ggt), serum 2024 025 [facility], [address], [place], [address], 06/30/2025 04:05:06 CBC w/ auto diff 2024 025 [facility], [address], [address], [place], [address], 06/30/2025 04:05:05 vitamin D, 25-hydrox y, total, serum 2024 025 [facility], [address], [place], [address], 06/30/2025 04:05:06 iron + TIBC + ferritin, serum 2024 025 [facility], [address], [address], [place], [address], 06/30/2025 04:05:06 vitamin B12 + folate, serum or blood 2024 [place] [facility], [address], [place], [address], 06/30/2025 04:05:06 CMP, serum or plasma 2024 025 [facility], [address], [place], [address], 06/30/2025 04:05:06 TSH, serum or plasma 2024 [facility], [address], [place], [address], 06/30/2025 04:05:06 urinalysi s complete, reflex culture 2024 [facility], [address], [place], [address], 06/30/2025 04:05:07 erythrocy te sedimenta tion rate by westergre n method 2024 [facility], [address], [place], [address], 06/30/2025 04:05:06 C-reactiv e protein, quantitat luisa, serum or plasma 2024 025 [facility], [address], [place], [address], 06/30/2025 04:05:07 Referral None recorded. Procedures None recorded. Surgeries None recorded. Imaging None recorded. Medication Orders naltrexon e 50 mg tablet 2024 [place] [id number], [address], [place], [place], [id number], 06/23/2025 11:35:55 trazodone 50 mg tablet 2024 [facility]57229, [address], [place], [place], [id number], 06/23/2025 11:35:54 cyclobenz aprine 10 mg tablet 2024 [facility] #46234, [address], [place], [place], [id number], 06/23/2025 11:35:54 diclofena c sodium 75 mg tablet,de layed release 2024 [facility] #[id number], [address], [place], [place], [id number], 06/23/2025 11:35:53 Adderall XR 30 mg capsule,e xtended release 2024 [facility] #80972, [address], [place], [place], [id number], 06/23/2025 11:35:51 clonazepa m 0.5 mg tablet 2024 [facility] #79207, [address], [place], [place], [id number], 06/23/2025 11:35:52 Patient TargetsNo targets recorded. Patient Instructions Encounter Date Encounter Id Patient Instructions Last Modified By Organization Details Last Modified Time 06/23/2025 [id number] Quitting Tobacco : Care Instructions [email or web address] Not available 06/23/2025 11:35:37 dry eyes: care instructions [email or web address] Not available 06/23/2025 11:35:36 chronic pelvic pain: care instructions [email or web address] Not available 06/23/2025 11:35:37 attention defici t hyperactivity disorder (ADHD) in adults: care instructions [email or web address] Not available 06/23/2025 11:35:37 learning about mood disorders [email or web address] Not available 06/23/2025 11:35:37 learning about mood disorders Not available 06/23/2025 11:35:36 I spent a total of __31____ minutes (excluding separately reportable procedure time ) in care of this patient. [email or web address] Not available 06/23/2025 11:35:47 Reason for Referral None Reported. Problems Name Problem SNOMED Code Status Onset Date Resolution Date Notes Provider Name and Address Organization Details Recorded Time Altered bowel function 08437032 Completed 06/12/2023 Altered bowel habits Kirit Hankins MD [address], [place], [address], [facility] 3 12:35:47 Acute bronchit is 78582980 Completed 06/12/2023 Acute bronchit is Kirit Hankins MD [address], [place], [address], [facility] 3 12:32:32 Late effect of fracture of skull AND/OR face bones 14726575 Completed 06/12/2023 Late effect of fracture of skull AND/OR face bones Kirit Hankins MD [address], [place], [address], [facility] 3 12:35:09 Depressi ve disorder 38875653 Completed 06/12/2023 Depresse d Depres sive disorder Davida Reyes [facility] 4 10:32:00 Toxicode ndron radicans poisonin g 33158073 Completed 06/12/2023 Poison emily poisonin g Kirit Hankins MD [address], [place], [address], [facility] 3 12:35:26 Acute mastitis 14520372 Completed 06/12/2023 Acute mastitis Kirit Hankins MD [address], [place], [address], [facility] 3 12:32:34 Fatigue 79013731 Active Fatigue Kirit Hankins MD [address], [place], [address], [facility] 5 16:51:45 Acute rhinosin usitis 513972980 Completed 06/12/2023 Acute rhinosin usitis Kirit Hankins MD [address], [place], [address], [facility] 3 12:32:36 Pleuriti c pain 3815759 Completed 06/12/2023 Pleuriti c pain Kirit Hankins MD [address], [place], [address], [facility] 3 12:35:32 Anxiety 57048447 Active 2014 Anxiety MD Sophie Estrada[address], [place], [address], [facility] 5 16:50:20 Urinary tract infectio us disease 95953696 Completed 201406/12/2023 Urinary tract infectio us disease Kirit Hankins MD [address], [place], [address], [facility] 4 12:56:26 Tobacco user 196357118 Active 2014 Tobacco use Kirit Hankins MD [address], [place], [address], [facility] 5 16:50:20 Alcoholi sm 4724667 Active 2014 Alcoholi sm Kirit Hankins MD [address], [place], [address], [facility] 5 16:55:01 Panic attack 727641146 Completed 201506/12/2023 Panic attack Kirit Hankins MD [address], [place], [address], [facility] 3 12:35:39 Gastriti s 2703231 Completed 201706/12/2023 Gastriti s Kirit Hankins MD [address], [place], [address], [facility] 3 12:35:41 Fibromyo sitis 81145370 Active 2022 Kirit Hankins MD [address], [place], [address], [facility] 5 16:50:20 Osteoart hritis of right hip joint 43072462310 9107 Active 2022 Kirit Hankins MD [address], [place], [address], [facility] 5 16:50:20 Arthriti s of right sacroili ac joint 64431597839 69941 Active 2022 Kirit Hankins MD [address], [place], [address], [facility] 5 16:50:20 Disorder of iron metaboli 86087001 Active 2022 Kirit Hankins MD [address], [place], [address], [facility] 5 16:50:20 Chronic pelvic pain of female 832598621 Active 2023 Kirit Hankins MD [address], [place], [address], [facility] 5 16:50:21 Acute upper respirat ory infectio n 12465922 Completed 202306/16/2024 Kirit Hankins MD [address], [place], [address], [facility] 4 12:56:13 Recurren t urinary tract infectio n 608947207 Completed 202306/16/2024 Kirit Hankins MD [address], [place], [address], [facility] 4 12:56:20 Urinary tract infectio us disease 78790039 Completed 202306/16/2024 Urinary tract infectio us disease Kirit Hankins MD [address], [place], [address], [facility] 4 12:56:25 Depressi ve disorder 04005043 Active 2023 Depresse d Depres sive disorder Davida Eric [facility], [facility] 4 10:32:00 Mood disorder 32937753 Active 2023 Kirit Hankins MD [address], [place], [address], [facility] 5 16:50:20 Chronic low back pain 209519812 Active 2023 Kirit Hankins MD [address], [place], [address], [facility] 5 16:50:20 Secondar y amenorrh ea 880934256 Active 2023 Kirit Hankins MD [address] [facility] [address], [place], [address], [facility] 5 16:50:21 Degenera tion of lumbar interver tebral disc 58237956 Active 2023 Kirit Hankins MD [address] [facility] [address], [place], [address], [facility] 5 16:50:20 Attentio n deficit hyperact ivity disorder 648981903 Active 2024 Kirit Hankins MD [address], [place], [address], [facility] 5 16:50:20 Projecti le vomiting 5301272 Active 2024 Kirit Hankins MD [address], [place], [address], [facility] 5 14:54:59 Dry eyes 442705631 Active 2024 Kirit Hankins MD [address], [place], [address], [facility] 5 15:03:44 Chronic insomnia 304388186 Active 2024 Kirit Hankins MD [address], [place], [address], [facility] 5 16:50:58 Problem Notes None recorded. Medical [...] Not Available Not Avai lable amoxicillin 875 mg-chitou margaret clavulanate 125 mg tablet TAKE 1 TABLET [...] 5 160.02 cm 96.8 [degF] 20 kg/m2 19734.9 4 g 74 /min 18 /min 99 % 104/60 mm[Hg] Davida Reyes [facility] 5 11:08:25 Social History None recorded. Functional [...] Time MMR 9 completed [place] null, [facility] 06/12/2023 11:43:57 MMR 3 completed [place] null, [facility] 06/12/2023 11:43:57 COVID-19, mRNA, LNP-S, PF, 30 mcg/0.3 mL dose, gali-sucrose 2 completed [place] null, [facility] 06/12/2023 11:43:57 DTP 0 completed [place] null, [facility] 06/12/2023 11:43:57 DTP 8 completed [place] null, [facility] 06/12/2023 11:43:57 DTP 8 completed [place] null, [facility] 06/12/2023 11:43:57 DTP 3 completed [place] null, [facility] 06/12/2023 11:43:57 DTP 8 completed [place] null, [facility] 06/12/2023 11:43:57 OPV, trivalent 0 completed [place] null, [facility] 06/12/2023 11:43:57 OPV, trivalent 8 completed [place] null, [facility] 06/12/2023 11:43:57 OPV, trivalent 8 completed [place] null, [facility] 06/12/2023 11:43:57 OPV, trivalent 3 completed [place] null, [facility] 06/12/2023 11:43:57 Td (adult), 2 Lf tetanus toxoid, preservative free, adsorbed 3 completed [place] null, [facility] 06/12/2023 11:43:57 Hep B, adolescent or pediatric 8 completed [place] null, [facility] 06/12/2023 11:43:57 Hep B, adolescent or pediatric 7 completed [place] null, [facility] 06/12/2023 11:43:57 Hep B, adolescent or pediatric 7 completed Key [place], [place] - [facility] 06/12/2023 11:43:57 Past Encounters Encounter ID Performer Location Encounter Start Date Encounter Closed Date Diagnosis/Indication Diagnosis SNOMED-CT Code Diagnosis ICD10 Code Diagnosis IMO Codes Diagnosis Note [id number] Kirit Hankins MD [facility] [address] [place] [address] 06/23/2025 11:02:24 06/23/2025 11:40:48 Attention deficit hyperactivity disorder 643206658 F90.9 started on concerta by dion galvez 09/2024diag nosed with adhd.she needs to see dion littlejohn to make an appointmen t with them.will continue concertra in the interim.logan thomson referral and going to see a psych on cer ta causing side effects.wi ll switch to adderall. she has tried this before currently on adderallin creased to 30 mg dailynow seeing dion Garcia on of lumbar intervertebral disc 97960480 M51.369 mild ddd on lumbar areamRI 01/10: mild disc bulge wtih facet arthritis, mild neuro foraminal narrowing noted at one level in low backpain mgmt referral done and going to see 04/14/25see n pain management completed physical therapy with not much reliefs/p injection 05/18/2025: with improvemen tpain back againshe is planned for left L3,L4, L5 RFA planned Chronic low back pain 27 4682531 M54.50 xray done at chiropract orreceived the [...] le.other x-rays unremarkab le as well. 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 recheck normal, ck normaldid not go to rheumatolo gistwill add flexeril prndiscuss ed cymbalta with the patient but she did not tryfu with pain management added gabpentin scheduled but she takes it as neededssee ing pain managmenet nowalso seen rheumatolo gist.added cyclobenza ivy and diclofenac she lost diclofenac .sent refill Mood disorder 37442931 F 39 mood up and down. 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 TIBC low, iron level and saturation [...] heterozygo usrecheck level with improvemen t Alcoholism 3509320 F10.2 0 drinks frequently mostly binge drinkingco unseled on drinkingdi scussed different medication s.start naltrexone which she does not takeadvise d to contact alcohol rehab center for vivitrolsh e states she has slowed downwent to re[facility] 08[place]2024 [place] sporad[place].continu es on AAadd acamprosat e which she has not received yetshe went to see psychiatir st and going to receivelas t drink: she does not knowshe is not able to go get vivitrolst arted on naltrexone Anxiety 41129303 F41.9 on clonazepam for since 18started having panic attacks blackoutss chooling: did wellboyfri end suddenly, lot of stress due to familial stresstrie d different antidepres sants, zoloft, bupropion, lamictal in the past which did not helpdec 2021 admitted to psych facility for alcohol intoxicati on and potential suicidal intentions bupropion: sexual side effects and stoppedvra ylar: side effectswas diagnosed with ADHD Fatigue 20566539 R53.83 ongoingana negative 02/2022; kylah and anti-ccp: negativees r crp again normal Tobacco user 703518117 F 17.200 quit now Osteoarthr itis of right hip joint 1864962426 90929 M16.11 xr 03/10 will follow Arthritis of right sacroiliac joint 7455300889 425418 M13.88 cr 03/10 notedrheum atology referralha d elevated aldolase level.ongo ing fatigueCK level normalseen rheumatolo gist Chronic pe lvic pain of female 513933030 D25.1 ongoing mild for long time.fu with gynecology Pelvic ultrasound with fibroid uterusFoll owed up with gynecologi st Secondary amenorrhea 156 449852 N91.1 urine poc negativefo llow up with female doctnow having menstruato in. location analyst give her some medsnow resolved Dry eyes 868516770 H04.1 23 2262198 refresh plus Chronic insomnia 2632414 04 F51.04 513046 on trazodone prntreid in the past and worked well. Health Concerns Section Related Observation LastModified by Organization Detai ls LastModified Time None Recorded Concern Status LastModified by Organization Details LastModified Time None Recorded Payers Encounter Date Sequence Insurance Name Policy Number Policy Odell Covered Member ID Odell Member ID Guarantor Name 06/23/2025 1 [facility] - DOS ON OR AFTER 21 (MEDICAID REPLACEMENT - HMO) Kari Song [id number] Kari Song Notes Date Note Type Note [...] [address], [place], [address], [facility] 06/23/2025 11:36:05 OBGyn Episode No OBEpisode recorded.
[2025-08-09 07:29] VITALS: BP 100/82; PULSE 74; RESP 15; TEMP 37; O2SAT 100
[2025-08-09 08:02] VITALS: BP 92/68; PULSE 59; RESP 15; O2SAT 100
[2025-08-09] MEDS: LIDOCAINE 2% PF LOCAL INJ 5 ML VIAL INFILTRATE (08:04)
[2025-08-09] MEDS: LIDOCAINE 1% PF INJ 5 ML VIAL INFILTRATE (08:05)
[2025-08-09 08:08] VITALS: BP 94/61; PULSE 59; RESP 10; O2SAT 99
[2025-08-09 08:10] VITALS: BP 99/74; PULSE 58; RESP 12; O2SAT 97
== END 2025-08-09 08:30 | disposition home or self-care (01) ==
LOC: ASC 07:15
PROVIDERS: PCP Internal Medicine; Visit Provider Anesthesiology Pain Medicine
PROC: (CPT 64493; principal; 2025-08-09 08:10)
DX: M47.816 Spondylosis without myelopathy or radiculopathy, lumbar region (principal)
CPT/HCPCS: 64493; 64494; 99199